=== PATIENT | male | born 1945 | race Caucasian/White ===

== ENCOUNTER 2016-03-06 03:07 | Emergency (ER) | payer OTHER ==
[~2016-03-06] VITALS: Ht 182.9 cm; Wt 114.0 kg
[~2016-03-06 03:07] MED LIST: ACET1TAB84 PO; ASCO500T16 PO; CHOL1TAB76 PO; DNSIS60 INJ; GLUC1TAB94 PO; GLUCTAB PO; MAGN250T22 PO; MULT-506 PO; NAPR1CAP12 PO
[2016-03-06 03:14] VITALS: TEMP 36.4; Ht 182.9 cm; Wt 114.0 kg
--- NOTE | 2016-03-06 03:29 | EMERGENCY ROOM VISIT NOTE ---
History Report prepared by Emerald: Mirta Tabor Under the Supervision of: Dr. Edd Hernandez M.D. First contact with patient: 03:21 Chief Complaint: ABDOMINAL PAIN Stated Complaint: HERNIA PAIN History of Present Illness The patient is a 70 year old male who presents to the Emergency Room with complaints of worsened right inguinal pain that began this morning. The patient states that he had some complications with a prostate surgery 3 years ago and has had a right inguinal hernia ever since. He had a consultation regarding surgery but ultimately surgery was decided against. Since then,the hernia has been giving him occasional soreness but he can typically reduce it without too much difficulty. This morning, the hernia is only slightly protruded, but has been giving him more pain than usual, especially since he had a bowel movement 3 hours [employer]MENT [employer]. His current discomfort is a 6/10 in severity. His pain has improved some since he arrived to the ED. Denies nausea, vomiting, or other complaints. He took a Tylenol several hours ago without relief. Source of History: patient Onset: this morning Position: other (right inguinal region) Symptom Intensity: 6/10 Timing: worsening Modifying Factors (Worsening): defecation Associated Symptoms: No nausea, No vomiting Review of Systems See HPI for pertinent positives & negatives. A total of 10 systems reviewed and were otherwise negative. Past Medical & Surgical Medical Problems: (1) Hernia repair (2) Hx of radiation therapy (3) Lumbosacral spondylolysis (4) Melanoma (5) Prostate cancer Family History Cancer Diabetes mellitus Social History Smoking Status: Never Smoker Alcohol Use: occasionally Drug Use: none Marital Status: Housing Status: lives with family Occupation Status: retired Current/Historical Medications Scheduled Ascorbic Acid (Ascorbic Acid), 500 MG PO DAILY Cholecalciferol (D 1999), 2,000 UNITS PO DAILY Denosumab (Prolia), 60 MG INJ Q 6 MONTHS Fish Oil ([place]-3), 1,200 MG PO DAILY Qoccvwfkzma-Twkpydaelce-Krjrla (Move Free Joint Health Ad), 1 TAB PO DAILY Magnesium Oxide (Magnesium), 250 MG PO DAILY Misc Natural Products (Osteo Bi-Flex Advanced Tr), 1 TAB PO TID Multivitamin (Multivitamin), 1 TAB PO DAILY Naproxen Sodium (Aleve), 1 CAP PO BID Turmeric (Curcuma Longa) (Turmeric), 750 MG PO BID Scheduled PRN Acetaminophen (Tylenol Arthritis Ext Rel), 650 MG PO UD PRN for Pain Allergies Coded Allergies: Oxycodone (Verified Allergy, Unknown, unknown, 03/06/16) pt and pt stated he had "disjointed syndrome" Physical Exam Vital Signs Date Time Temp Pulse Resp B/P Pulse Ox O2 Delivery O2 Flow Rate FiO2 03/06/16 05:44 78 18 122/73 98 03/06/16 05:04 74 18 143/89 94 Room Air 03/06/16 03:14 36.4 74 16 170/88 93 Room Air Physical Exam GENERAL: Patient is uncomfortable appearing and in mild distress. HEENT: No acute trauma, normocephalic atraumatic, mucous membranes moist, no nasal congestion, no scleral icterus. NECK: No stridor, no adenopathy, no meningismus, trachea is midline. LUNGS: No dyspnea. Clear to auscultation and equal bilaterally. No wheeze, no rhonchi. HEART: Regular rate and rhythm. No murmurs, rubs, gallops appreciated. ABDOMEN: Soft, nontender, bowel sounds positive, no masses appreciated, no peritonitis, large right inguinal hernia (reduced at bedside), BACK: No midline tenderness, no CVA tenderness EXTREMITIES: Normal motion all extremities, no cyanosis, no edema. NEUROLOGIC: Alert and oriented, no acute motor or sensory deficits, no focal weakness, cranial nerves grossly intact. SKIN: No rash, no jaundice, no diaphoresis. Medical Decision & Procedures ER Provider Diagnostic Interpretation: CT results as stated below per interpretation by me and the radiologist: CT ABDOMEN & PELVIS: A short segment of the terminal ileum herniates through the right inguinal canal. The herniated segment demonstrates wall thickening and mild surrounding edema. The approaching segment of small bowel is mildly dilated and demonstrates a fecalized appearance. The exiting short segment of terminal ileum is decompressed. The combination of findings are suspicious for incarceration complicated by possible strangulation and developing small bowel obstruction. Surgical consultation recommended. There is also apparent wall thickening of the sigmoid in the setting of diverticulosis. May represent reactive colitis. Primary diverticulitis considered less likely, but not ruled out. Remainder of the examination is not appreciably changed compared to 01/23/14. Radiologist: Kodak Aj MD Laboratory Results 03/06/16 03:40 Red Blood Count 5.10, Mean Corpuscular Volume 86.7, Mean Corpuscular Hemoglobin 30.2, Mean Corpuscular Hemoglobin Concent 34.8, Mean Platelet Volume 9.2, Neutrophils (%) (Auto) 85.9, Lymphocytes (%) (Auto) 9.8, Monocytes (%) (Auto) 3.2, Eosinophils (%) (Auto) 0.7, Basophils (%) (Auto) 0.1, Neutrophils # (Auto) 6.15, Lymphocytes # (Auto) 0.70, Monocytes # (Auto) 0.23, Eosinophils # (Auto) 0.05, Basophils # (Auto) 0.01 03/06/16 03:40 Test 03/06/16 03:40 03/06/16 03:43 White Blood Count 7.16 K/uL (4.8-10.8) Red Blood Count 5.10 M/uL (4.7-6.1) Hemoglobin 15.4 g/dL (14.0-18.0) Hematocrit 44.2 % (42-52) Mean Corpuscular Volume 86.7 fL (80-100) Mean Corpuscular Hemoglobin 30.2 pg (25-34) Mean Corpuscular Hemoglobin Concent 34.8 g/dl (32-36) Platelet Count 232 K/uL (130-400) Mean Platelet Volume 9.2 fL (7.4-10.4) Neutrophils (%) (Auto) 85.9 % Lymphocytes (%) (Auto) 9.8 % Monocytes (%) (Auto) 3.2 % Eosinophils (%) (Auto) 0.7 % Basophils (%) (Auto) 0.1 % Neutrophils # (Auto) 6.15 K/uL (1.4-6.5) Lymphocytes # (Auto) 0.70 K/uL (1.2-3.4) Monocytes # (Auto) 0.23 K/uL (0.11-0.59) Eosinophils # (Auto) 0.05 K/uL (0-0.5) Basophils # (Auto) 0.01 K/uL (0-0.2) RDW Standard Deviation 41.2 fL (36.4-46.3) RDW Coefficient of Variation 12.8 % (11.5-14.5) Immature Granulocyte % (Auto) 0.3 % Immature Granulocyte # (Auto) 0.02 K/uL (0.00-0.02) Est Creatinine Clear Calc Drug Dose 100.7 ml/min Estimated GFR () 100.4 Estimated GFR (Non- 86.6 BUN/Creatinine Ratio 23.3 (10-20) Calcium Level 9.6 mg/dl (8.5-10.1) Total Bilirubin 0.6 mg/dl (0.2-1) Direct Bilirubin 0.1 mg/dl (0-0.2) Aspartate Amino Transf (AST/SGOT) 17 U/L (15-37) Alanine Aminotransferase (ALT/SGPT) 27 U/L (12-78) Alkaline Phosphatase 55 U/L (45-117) Total Protein 7.2 gm/dl (6.4-8.2) Albumin 4.2 gm/dl (3.4-5.0) Lipase 133 U/L (73-393) Bedside Hemoglobin 15.3 g/dl (14.0-18.0) Bedside Hematocrit 45 % (42-52) Bedside Sodium 139 mEq/L (135-144) Bedside Potassium 4.0 mEq/L (3.3-5.0) Bedside Chloride 103 mEq/L (101-112) Bedside Total CO2 24 mEq/l (24-31) Anion Gap 17.0 mmol/L (16-25) Bedside Blood Urea Nitrogen 22 mg/dl (7-18) Bedside Creatinine 0.8 mg/dl (0.6-1.3) Bedside Glucose (other) 121 mg/dl (70-99) Bedside Ionized Calcium (Alona) 1.17 mmol/l (1.12-1.32) Laboratory results as reviewed by me. ED Course 0324: The patient was evaluated in room A11. A complete history and physical exam was performed. 0438: I reassessed the patient and updated him on results so far. 0440: I discussed the case with Dr. Hammond - General Surgery. He will evaluate the patient. 0529: I spoke with Dr. Hammond. He said that the patient can be discharged and feels that outpatient management is optimal. 0540: Reevaluated the patient. Discussed results and discharge instructions: He verbalized understanding and agreement. He is aware to return at any time if his symptoms worsen. The patient is ready for discharge. Medical Decision Differential: Incarcerated/strangulated hernia, ligamentous injury, abscess, appendicitis. 70 yr old male arrives for evaluation of right pelvic pain. On exam he has stuck right inguinal hernia. This was reduced in standard fashion by putting patient in Trendelenburg and gentle palpation. Feeling much improved. Hernia is easily sliding in and out now without further discomfort. I did opt for CT given amount of discomfort which reveals early obstruction/incarceration which likely was ongoing until reduced. Given findings however Gen Surg in to evaluate patient and I appreciate their input. WIll have outpatient follow up this week with planned OR in next few weeks as outpatient. Does have possible mild diverticulitis by CT but he exhibits no diverticulitis symptoms nor fever nor wbc elevation thus will hold on any abx. Stable and feeling well. Discussed hernia precautions and instructions regarding treatment and what requires immediate RTED. Patient and comfortable with this plan. Consults Time Called: [phone] Consulting Physician: Dr. Hammond - General Surgery Returned Call: [phone] I discussed the case with him. He will evaluate the patient. Additional Consults: Time Called: -- Consulted Physician: Dr. Hammond - General Surgery Returned Call: [phone] Additional Comments: I spoke with Dr. Hammond. He said that the patient can be discharged and feels that outpatient management is optimal. Impression Primary Impression: Incarcerated right inguinal hernia Scribe Attestation The scribe's documentation has been prepared under my direction and personally reviewed by me in its entirety. I confirm that the note above accurately reflects all work, treatment, procedures, and medical decision making performed by me. Departure Information Dispostion Home / Self-Care Referrals Wilner Hernandez M.D. (PCP) Ruddy Hammond M.D. Patient Instructions ED Hernia Inguinal, [facility]
[2016-03-06] MEDS ORDERED: OPTIRAY 320 IV PRN (03:45)
[2016-03-06 03:52] LABS: BASO % 0.1 %; BASO ABS # 0.01 K/uL (0-0.2); COMPLETE YES; EOS % 0.7 %; HEMATOCRIT 44.2 % (42-52); IG% 0.3 %; LYMPH % 9.8 %; MEAN CELL VOLUME 86.7 fL (80-100); MEAN CORPUSCULAR HEMOGLOBIN 30.2 pg (25-34); MEAN CORPUSCULAR HGB CONC 34.8 g/dl (32-36); MEAN PLATELET VOLUME 9.2 fL (7.4-10.4); MONO % 3.2 %; NEUT % 85.9 %; PLATELET COUNT 232 K/uL (130-400); WHITE BLOOD COUNT 7.16 K/uL (4.8-10.8)
[2016-03-06 04:01] LABS: ISTAT CREATININE 0.8 mg/dl (0.6-1.3); ISTAT HEMOGLOBIN 15.3 g/dl (14.0-18.0); ISTAT IONIZED CALCIUM 1.17 mmol/l (1.12-1.32)
[2016-03-06 04:16] LABS: BUN/CREATININE RATIO 23.3 (10-20); CALCIUM 9.6 mg/dl (8.5-10.1); CREATININE 0.89 mg/dl (0.60-1.40)
[2016-03-06] MEDS ORDERED: MISCTAB29 PO (04:54)
[2016-03-06] MEDS ORDERED: TURM500T PO (04:56)
[2016-03-06] MEDS ORDERED: OMEG10007 PO (04:56)
[2016-03-06 05:44] VITALS: BP 122/73; PULSE 78; O2SAT 98
--- NOTE | 2016-03-06 05:47 | Pre-Operative Consultation ---
History General Date of Service: Mar 06, 2016. HPI HPI: The patient is a 70 year old male being seen for a chronically incarcerated right inguinal hernia which became painful this evening. He has had a consultation regarding repair but did not have it repaired. Since then,the hernia has been giving him occasional soreness but he can typically reduce it without too much difficulty. This morning, the hernia is slightly protruded, but has been giving him more pain than usual. His pain is now gone. He denies nausea, vomiting, or other complaints. The patient notes that he had 3 normal bowel movements yesterday. A CT scan shows a chronically incarcerated segment of small bowel that I could reduce in the ED bay, nontender. Procedure Urgency: Acute Risk Assessment Daily beta erin use?: No Problem List Medical Problems: (1) Encounter for removal of sutures Status: Acute (2) Finger laceration Status: Acute (3) Incarcerated right inguinal hernia Status: Acute Medical & Surgical History Past Medical History: cancer (melanoma), cancer - prostate, other Past Surgical History: hernia repair (UHR w/mesh), other (prostatectomy) Family History Family History: cancer, diabetes Social History Hx Tobacco Use In Past Year?: No Smoking Status: Never Smoker Alcohol: occasionally Drug Use: none Marital status: Occupation status: retired Immunizations Have You Had Influenza Vaccine: No Have You Had Tetanus Vaccine: Yes History of Pneumococcal: No History Hepatitis B Vaccine: No Allergies Allergies: Coded Allergies: Oxycodone (Verified Allergy, Unknown, unknown, 03/06/16) pt and pt stated he had "disjointed syndrome" Medications Current Inpatient Medications Current Inpatient Medications Medications (Trade) Dose Ordered Sig/Nigel Route Start Time Stop Time Status Last Admin Dose Admin Ioversol (Optiray 320) 100 ml UD PRN IV 03/06/16 03:45 03/10/16 03:44 Review of Systems Review of Systems Constitutional: denies chills, denies diaphoresis, denies fever Eyes: reports: no symptoms ENT: reports: no symptoms reported Cardiovascular: denies: chest pain, chest pressure, chest tightness, palpitations Respiratory: denies: cough, orthopnea, short of breath, stridor Gastrointestinal: denies abdominal pain, denies constipation, denies diarrhea, denies nausea, denies vomiting Genitourinary - Male: reports: no symptoms Musculoskeletal: back pain, denies joint pain, denies joint swelling, muscle stiffness Integumentary: change in color (bilateral venous disease), denies change in hair/nails, denies lumps, denies rash Neurologic: reports: no symptoms Psychiatric: reports: no symptoms Endocrine: no symptoms Hematologic / Lymphatic: denies: anemia, easy bleeding, easy bruising Allergic / Immunologic: no symptoms Physical Exam Physical Exam General Appearance: + WD/WN, No distress Ears, Nose, Throat: + normal ENT inspection Neck: No abnormal inspection, No lymphadenophy, No stiffness, No tenderness, No tracheal deviation Respiratory: No decreased breath sounds, No rhonchi, No stridor, No wheezing Cardiovascular: No bradycardia, No diastolic murmur, No gallop/S3, No gallop/S4 , No systolic murmur, No tachycardia Abdomen: + hernia (reducible right inguinal hernia), No abnormal bowel sounds, No distension, No guarding, No rebound, No tenderness Extremities: No calf tenderness, No deformity, No inflammation, No swelling Neurologic/Psychiatric: No disorientation, No motor deficit/weakness, No sensory deficit Skin Characteristics: No abnormal color, No diaphoresis, No jaundice, No rash Lymphatic: No abnormal adenopathy Diagnostics Labs Labs Results Past 24 Hours Test 03/06/16 03:40 03/06/16 03:43 Range/Units White Blood Count 7.16 4.8-10.8 K/uL Red Blood Count 5.10 4.7-6.1 M/uL Hemoglobin 15.4 14.0-18.0 g/dL Hematocrit 44.2 42-52 % Mean Corpuscular Volume 86.7 80-100 fL Mean Corpuscular Hemoglobin 30.2 25-34 pg Mean Corpuscular Hemoglobin Concent 34.8 32-36 g/dl Platelet Count 232 130-400 K/uL Mean Platelet Volume 9.2 7.4-10.4 fL Neutrophils (%) (Auto) 85.9 % Lymphocytes (%) (Auto) 9.8 % Monocytes (%) (Auto) 3.2 % Eosinophils (%) (Auto) 0.7 % Basophils (%) (Auto) 0.1 % Neutrophils # (Auto) 6.15 1.4-6.5 K/uL Lymphocytes # (Auto) 0.70 1.2-3.4 K/uL Monocytes # (Auto) 0.23 0.11-0.59 K/uL Eosinophils # (Auto) 0.05 0-0.5 K/uL Basophils # (Auto) 0.01 0-0.2 K/uL RDW Standard Deviation 41.2 36.4-46.3 fL RDW Coefficient of Variation 12.8 11.5-14.5 % Immature Granulocyte % (Auto) 0.3 % Immature Granulocyte # (Auto) 0.02 0.00-0.02 K/uL Sodium Level 140 136-145 mmol/L Potassium Level 4.0 3.5-5.1 mmol/L Chloride Level 105 98-107 mmol/L Carbon Dioxide Level 24 21-32 mmol/L Anion Gap 11.0 17.0 16-25 mmol/L Blood Urea Nitrogen 21 7-18 mg/dl Creatinine 0.89 0.60-1.40 mg/dl Est Creatinine Clear Calc Drug Dose 100.7 ml/min Estimated GFR () 100.4 Estimated GFR (Non- 86.6 BUN/Creatinine Ratio 23.3 10-20 Random Glucose 115 70-99 mg/dl Calcium Level 9.6 8.5-10.1 mg/dl Total Bilirubin 0.6 0.2-1 mg/dl Direct Bilirubin 0.1 0-0.2 mg/dl Aspartate Amino Transf (AST/SGOT) 17 15-37 U/L Alanine Aminotransferase (ALT/SGPT) 27 12-78 U/L Alkaline Phosphatase 55 45-117 U/L Total Protein 7.2 6.4-8.2 gm/dl Albumin 4.2 3.4-5.0 gm/dl Lipase 133 73-393 U/L Bedside Hemoglobin 15.3 14.0-18.0 g/dl Bedside Hematocrit 45 42-52 % Bedside Sodium 139 135-144 mEq/L Bedside Potassium 4.0 3.3-5.0 mEq/L Bedside Chloride 103 101-112 mEq/L Bedside Total CO2 24 24-31 mEq/l Bedside Blood Urea Nitrogen 22 7-18 mg/dl Bedside Creatinine 0.8 0.6-1.3 mg/dl Bedside Glucose (other) 121 70-99 mg/dl Bedside Ionized Calcium (Alona) 1.17 1.12-1.32 mmol/l Impression Assessment and Plan Assessment and Plan Chronically incarcerated R IH that can be manually reduced -pain resolved -no obstructive symptoms -no signs of ischemia -discharge from ED and will see in clinic this week to plan repair
--- NOTE | 2016-03-06 08:21 | DIAGNOSTIC IMAGING REPORT ---
CT ABD/PELVIS IV CONTRAST ONLY CLINICAL HISTORY: Right-sided abdominal and pelvic pain. COMPARISON STUDY: 01/23/2014 TECHNIQUE: Following the IV administration of 92 mL of Optiray-320, CT scan of the abdomen and pelvis was performed from the lung bases to the proximal femurs. Images are reviewed in the axial, sagittal, and coronal planes. IV contrast was administered without complication. CT DOSE: 1296.18 mGy.cm FINDINGS: Lower chest: There are minor basilar atelectatic changes. The heart is mildly enlarged. Liver: There is mild hepatic steatosis. There is presumed focal fat adjacent to the gallbladder fossa. The portal veins appear patent. Gallbladder: Unremarkable. Spleen: Normal in size and attenuation. Pancreas: Unremarkable. Adrenal glands: Unremarkable. Kidneys: There is a nonobstructing 1 cm left renal calculus. There is no hydronephrosis. Bowel: There is a right inguinal hernia containing a loop of small bowel. There is fluid within the hernia sac. There is a small bowel feces sign. There are mildly dilated small bowel loops proximal to the hernia. The hernia is felt to be resulting in a partial small bowel obstruction. The appendix appears normal. There is scattered colonic diverticula present. There is no acute diverticulitis. Peritoneum: There is a small amount of free fluid within the hernia sac. There is no free air. There is a 6 cm cystic structure with peripheral calcification at the anterior obturator level. This appears smaller than the prior study. This likely represents a lymphocele. Vasculature: The abdominal aorta is normal in course and caliber. Adenopathy: None. Pelvic viscera: There is mild bladder wall thickening which may be secondary to a nondistended bladder. Skeletal structures: There are advanced arthritic changes involving the hips IMPRESSION: 1. Right inguinal hernia, containing a small segment of terminal ileum. There is upstream small bowel dilatation with a small bowel feces sign. There is fluid present within the hernia sac. The findings are indicative of a small bowel obstruction secondary to the inguinal hernia. Surgical consultation is recommended. 2. Colonic diverticulosis with wall thickening likely secondary to peridiverticular muscular hypertrophy 3. Normal appendix 4. Stable fluid collection within the right obturator region, likely representing a lymphocele 5. Postsurgical changes are prior ventral hernia repair 6. Advanced arthritic changes within the hips 7. Nonobstructing 1 cm left renal calculus Electronically signed by: Shyam Joseph M.D. 03/06/2016 8:19 AM Dictated Date/Time: 03/06/2016 8:09 AM
[2016-03-09] MEDS ORDERED: CALC600T PO (13:15)
[2016-11-05] MEDS ORDERED: ACET-749 PO (11:31)
== END 2016-03-06 05:42 | disposition home or self-care (01) ==
LOC: C.EDB 03:09 → C.EDA 05:42
DX: K40.90 Unilateral inguinal hernia, without obstruction or gangrene, not specified as recurrent (principal); Z92.3 Personal history of irradiation; Z85.46 Personal history of malignant neoplasm of prostate

== ENCOUNTER → 2016-03-09 | Outpatient (CLI) | payer OTHER ==
[2015-03-04 13:23] VITALS: BP 131/78; PULSE 73
[~2016-03-09] MED LIST changes: +ACET-749 PO; +CALC600T PO; -GLUCTAB PO; +MISCTAB29 PO; +OMEG10007 PO; +TURM500T PO
[2016-03-09 12:39] VITALS: BP 127/79; PULSE 88; TEMP 36.8; O2SAT 94
--- NOTE | 2016-03-09 14:05 | Radiation Oncology Follow-Up ---
Radiation Oncology Follow-Up Date of Visit Mar 09, 2016. Reason For Visit Annual follow-up Radiation Completion Date Hormonal suppression;IMRT 08/02/13 Diagnosis (1) Prostate ca Status: Resolved Onset Date: 01/16/2013 Location: both lobes of the prostate Histology Subtype: adenocarcinoma Stage: IV Permanent Comment: Rising PSA to 60.09 Status post ultrasound-guided biopsies. Biopsy stage T2c [place] 3+3, 3+4, 4+3, and 3+5 Status post laparoscopic robotic-assisted retropubic prostatectomy and bilateral lymph node dissection Stage pT3 pN1 M0 Status post completion of radiation therapy with IMRT/IGRT completed 08/02/2013 received 7040 cGy Hormonal suppression completed 11/11/2014 Last Edited By: Funmilayo Hamm on Mar 09, 2016 13:43 History of Present Illness Mr. Sanz is a 67-year-old male who had a past history going back approximately 11 years when there was a slight rise in PSA to the range of 4 to 5. At that time he was told he had a very small gland and ultrasound and biopsies were suggested. The patient chose to proceed with observation at that time and unfortunately, since that time no further PSAs were drawn. Recent comprehensive blood work performed on September 29, 2012 showed a marked elevation of PSA to 63.6. This was repeated on October 30, 2012 and remained high at 69.09. The patient had been seen by Dr. Sherwood as earlier he presented with abdominal pain which was thought to be related to a bleed associated with the left adrenal gland. The patient was being followed by Dr. Sherwood for this but no specific treatments were required. His digital rectal exam at that time showed no palpable nodules and a nontender prostate. The prostate was felt to be enlarged at greater than 70 grams. He felt the prostate was firm but without nodules. As noted above, he repeated the PSA and it returned at 69.09. Because of the persistent elevated PSA, he recommended a prostate biopsy. He ordered an MRI of the abdomen to evaluate the abdominal bleed. This showed retroperitoneal hemorrhage of uncertain etiology. No other abdominal abnormalities were appreciated. He ordered a CT scan of the abdomen utilizing the adrenal mass protocol on November 21. This showed a 1.5 cm left adrenal nodule that does not meet the criteria for an adenoma. This was seen previously and is stable compared to a previous study in 2007. No evidence of acute hemorrhaging was noted. He therefore proceeded with an ultrasound-guided prostate biopsy on November 24, 2012. Total of 14 biopsies were taken. Of the 14 biopsies, 2 of 2 biopsies from the left base were positive for an adenocarcinoma, [place] grade of 3 + 5 involving 75% of the tissue submitted with perineural invasion identified. Two of two biopsies from the right base revealed an adenocarcinoma, [place] grade of 3 + 4 involving 95% of the core tissue sample. Two of two biopsies from the left mid gland revealed an adenocarcinoma, [place]rum grade of 3 + 4 involving 80% of the core tissue sample. Two of two biopsies from the right mid gland revealed an adenocarcinoma, [place]rum grade of 4 + 3, involving essentially 100% of the core tissue sample. Two of two biopsies from the left apex revealed an adenocarcinoma, [place]rum grade of 3 + 4 involving 40% of the core tissue sample. One of two biopsies from the right apex revealed an adenocarcinoma, Erum grade of 3 + 4 involving 20% of the core tissue sample. One of one biopsy from the left anterior revealed an adenocarcinoma, [place] grade of 3 + 3, involving 10% of the core tissue sample. The right anterior biopsy revealed benign prostatic tissue. Therefore a total of 12 of 14 biopsies were positive. Case [id number]. His estimated gland volume was 78.5 ccs. The patient returned to discuss these biopsy findings with Dr. Sherwood. The role of radical robotic prostatectomy was discussed and patient was tentatively scheduled for December 28. Dr. Sherwood obtained additional staging procedures. The patient had previously had a CT scan of the abdomen and pelvis showing no evidence of enlarged pelvic nodes. He had a bone scan December 05 which showed a questionable area at T11. MRI of the thoracic spine was therefore performed on December 07. This showed moderate degenerative changes throughout the entire thoracic region with the activity at T11 as seen on the patient's bone scan felt to be degenerative in nature. Thus there was no evidence of metastatic bony disease. All options had been reviewed with the patient he underwent a radical robotic prostatectomy. This was performed on 01/16/2013. This revealed adenocarcinoma, recent 3+5, extraprostatic extension, seminal vesicles involved. Perineural invasion. Stage was pT2 pN1. One of 4 nodes were positive. He steadily recovered from his surgery. He received physical therapy for incontinence through [facility]. He was then able to return back to our office and undergo salvage radiation therapy. This was given from 06/11/2013 to 08/02/2013. He received 7040 cGy. Interim History His urinary status has been similar over the past few months. He does have an increase in nocturia. He did try mybetric. He stated that this did not help with the nocturia. His AUA score was 4.5. He completed and expanded prostate cancer index composite for clinical practice and gave a score of 3 of 12 and urinary incontinence symptoms. He gave a score of 0 of 12 and urinary irritation symptoms. He gave a score of one of 12 in bowel symptoms. He gave a score of 9 of 12 and sexual symptoms. He gave a score of 2 of 12 in hormonal vitality symptoms. His total was 15 of 60. He has been followed closely by Dr. Sherwood and has had recheck PSAs. He had a PSA 06/09/2015 that was less than 0.010. He had a PSA 09/26/2015 that was 0.035. His last PSA was 2015 and this was 0.147. He is scheduled to have this rechecked in May. He' ll be seeing Dr. Sherwood prior to this visit because of a known renal calculus. There is discussion about possible lithotripsy. He also has a right inguinal hernia which has recently caused him discomfort. He was in the emergency room and then referred to surgery. He is going to be undergoing a right inguinal hernia repair by Dr. Hammond. He also has osteoporosis and is getting probably a every 6 months. Allergies Coded Allergies: Oxycodone (Verified Allergy, Unknown, unknown, 03/06/16) pt and pt stated he had "disjointed syndrome" Home Medications Scheduled Ascorbic Acid (Ascorbic Acid), 500 MG PO DAILY Calcium Carbonate (Calcium 600), 1 TAB PO DAILY Cholecalciferol (D 1999), 1,000 UNITS PO DAILY Denosumab (Prolia), 60 MG INJ Q 6 MONTHS Fish Oil ([place]-3), 1,200 MG PO DAILY Cumvxipjegq-Qmxukhzxddl-Xoyfvz (Move Free Joint Health Ad), 1 TAB PO BID Magnesium Oxide (Magnesium), 250 MG PO DAILY Misc Natural Products (Osteo Bi-Flex Advanced Tr), 1 TAB PO TID Multivitamin (Multivitamin), 1 TAB PO DAILY Naproxen Sodium (Aleve), 1 CAP PO BID Turmeric (Curcuma Longa) (Turmeric), 750 MG PO BID Scheduled PRN Acetaminophen (Tylenol Arthritis Ext Rel), 650 MG PO UD PRN for Pain Review of Systems Gastrointestinal: Symptoms: WNL GI Comments: Taking benefiber daily; Oral: Symptoms: No Problems Respiratory: Symptoms: WNL, Dry Cough Sputum Character: clear Other Respiratory: Chronic dry cough on occassion ever since prostatectomy; Urinary: Symptoms: Nocturia Comments: See below notations; Skin: Symptoms: No Problems Physical Exam Vital Signs Date Time Temp Pulse Resp B/P Pulse Ox O2 Delivery O2 Flow Rate FiO2 03/09/16 12:39 36.8 88 12 127/79 94 Pain: Pain Onset: few years Pain Duration: intermet Side: Bilateral Pain Location: Hip Patient Pain Scale: 0 - 10 Initial Pain Intensity: 7.0 Pain Description: Aching General Appearance: no apparent distress Eyes: normal inspection, EOMI ENT: normal ENT inspection, hearing grossly normal Respiratory/Chest: lungs clear, no respiratory distress, no accessory muscle use Cardiovascular: regular rate, rhythm, no gallop, no murmur Abdomen: normal bowel sounds, non tender, soft Genitourinary - Male: Right inguinal hernia. Nonreproducible. Anal / Rectum: Normal sphincter tone. Prostate bed is flat. No rectal masses and no rectal bleeding. Extremities: no pedal edema Neurologic/Psychiatric: no motor/sensory deficits, alert, normal mood/affect Skin: warm/dry Lymphatic: no adenopathy Laboratory Studies Test 02/04/16 09:50 03/06/16 03:40 03/06/16 03:43 Blood Urea Nitrogen 24 mg/dl (7-18) 21 mg/dl (7-18) Creatinine 0.98 mg/dl (0.60-1.40) 0.89 mg/dl (0.60-1.40) Estimated GFR () 90.2 100.4 Estimated GFR (Non- 77.8 86.6 BUN/Creatinine Ratio 24.9 (10-20) 23.3 (10-20) Prostate Specific Antigen 0.147 ng/ml (0.000-4.000) Total Testosterone 380 ng/dL (250-1100) Free Testosterone 41.8 pg/mL (30.0-135.0) White Blood Count 7.16 K/uL (4.8-10.8) Red Blood Count 5.10 M/uL (4.7-6.1) Hemoglobin 15.4 g/dL (14.0-18.0) Hematocrit 44.2 % (42-52) Mean Corpuscular Volume 86.7 fL (80-100) Mean Corpuscular Hemoglobin 30.2 pg (25-34) Mean Corpuscular Hemoglobin Concent 34.8 g/dl (32-36) Platelet Count 232 K/uL (130-400) Mean Platelet Volume 9.2 fL (7.4-10.4) Neutrophils (%) (Auto) 85.9 % Lymphocytes (%) (Auto) 9.8 % Monocytes (%) (Auto) 3.2 % Eosinophils (%) (Auto) 0.7 % Basophils (%) (Auto) 0.1 % Neutrophils # (Auto) 6.15 K/uL (1.4-6.5) Lymphocytes # (Auto) 0.70 K/uL (1.2-3.4) Monocytes # (Auto) 0.23 K/uL (0.11-0.59) Eosinophils # (Auto) 0.05 K/uL (0-0.5) Basophils # (Auto) 0.01 K/uL (0-0.2) RDW Standard Deviation 41.2 fL (36.4-46.3) RDW Coefficient of Variation 12.8 % (11.5-14.5) Immature Granulocyte % (Auto) 0.3 % Immature Granulocyte # (Auto) 0.02 K/uL (0.00-0.02) Sodium Level 140 mmol/L (136-145) Potassium Level 4.0 mmol/L (3.5-5.1) Chloride Level 105 mmol/L (98-107) Carbon Dioxide Level 24 mmol/L (21-32) Anion Gap 11.0 mmol/L (3-11) 17.0 mmol/L (16-25) Est Creatinine Clear Calc Drug Dose 100.7 ml/min Random Glucose 115 mg/dl (70-99) Calcium Level 9.6 mg/dl (8.5-10.1) Total Bilirubin 0.6 mg/dl (0.2-1) Direct Bilirubin 0.1 mg/dl (0-0.2) Aspartate Amino Transferase (AST) 17 U/L (15-37) Alanine Aminotransferase (ALT) 27 U/L (12-78) Alkaline Phosphatase 55 U/L (45-117) Total Protein 7.2 gm/dl (6.4-8.2) Albumin 4.2 gm/dl (3.4-5.0) Lipase 133 U/L (73-393) POC Hemoglobin 15.3 g/dl (14.0-18.0) POC Hematocrit 45 % (42-52) POC Sodium 139 mEq/L (135-144) POC Potassium 4.0 mEq/L (3.3-5.0) POC Chloride 103 mEq/L (101-112) POC Total CO2 24 mEq/l (24-31) POC Blood Urea Nitrogen 22 mg/dl (7-18) POC Creatinine 0.8 mg/dl (0.6-1.3) POC Glucose 121 mg/dl (70-99) POC Ionized Calcium ([place]) 1.17 mmol/l (1.12-1.32) Assessment & Plan Plan: Continue regular follow-up with Dr. Sherwood. He is going to be seeing him about his kidney stone. He has a scheduled appointment for May for a PSA and recheck visit. They have discussed the rising PSA. There is concern. They have discussed possible pulse dose of hormone suppression. He also may qualify for a clinical trial. Continue follow-up with his PCP and he receives probably every 6 months for his osteoporosis. We asked her to return to our office in 1 year. He may call if he has any questions or concerns in the interim. Total Time In Follow-Up I spent 20 minutes speaking to the patient performing examination. I spent 15 minutes reviewing information and completing this note. Copy To Wilner Hernandez M.D.; Robin Sherwood MD, Urology
== END | disposition home or self-care (01) ==
LOC: C.ONC 12:21
PROVIDERS: ATTEND Radiology Radiation Oncology
DX: Z08 Encounter for follow-up examination after completed treatment for malignant neoplasm (principal); Z92.3 Personal history of irradiation; Z85.46 Personal history of malignant neoplasm of prostate

== ENCOUNTER → 2016-06-21 | Outpatient (CLI) | payer OTHER ==
[2016-06-21 10:41] LABS: BLOOD UREA NITROGEN 16 mg/dl (7-18); BUN/CREATININE RATIO 17.6 (10-20); CREATININE 0.92 mg/dl (0.60-1.40)
[2016-06-21 10:45] LABS: PROSTATE SPECIFIC ANTIGEN 0.334 ng/ml (0.000-4.000)
--- NOTE | 2016-06-25 12:04 | CODING QUERY MEDICAL NECESSITY ---
CQSUPPORTING DIAGNOSIS NEEDED A supporting diagnosis is required for the test/procedure performed on this patient in order for us to be reimbursed by the patient's insurance. Please provide a supporting diagnosis for the following test/procedure listed below next to the test name along with your signature. *If there is no additional diagnosis for this patient that would support the following test/procedure please document that below next to the test/procedure. Test(s)/Procedure(s) that require a supporting diagnosis: DOS 06/21/16 PROSTATE SPECIFIC Provider Signature: Date: Thank you Melyssa Shook [facility] Information Management Once completed, please kindly fax back to [phone] For questions please call [phone]
== END | disposition home or self-care (01) ==
LOC: C.LAB 09:26
PROVIDERS: ATTEND Urology
DX: N39.3 Stress incontinence (female) (male) (principal); R97.20 Elevated prostate specific antigen [PSA]; N40.1 Benign prostatic hyperplasia with lower urinary tract symptoms

== ENCOUNTER → 2016-10-12 | Outpatient (CLI) | payer OTHER ==
--- NOTE | 2016-10-12 09:29 | DIAGNOSTIC IMAGING REPORT ---
KUB CLINICAL HISTORY: Nephrolithiasis. COMPARISON STUDY: CT of the abdomen and pelvis March 06, 2016. FINDINGS: An 8 mm left renal calculus is noted. No right renal calculi are identified although the renal shadow is partially obscured by stool. Pelvic calcifications likely reflect phleboliths and vascular calcifications although make evaluation for ureteral calculi difficult. End-stage osteoarthritis of both hips with complete loss of hip joint space with osteophytosis and flattening of the femoral heads is again noted. There are post surgical findings consistent with a previous ventral hernia repair. IMPRESSION: 1. 8 mm left renal calculus. 2. No ureteral calculi identified although evaluation difficult given numerous phleboliths. Electronically signed by: Jalil Moreno M.D. 10/12/2016 9:28 AM Dictated Date/Time: 10/12/2016 9:25 AM
[2016-10-12 09:37] LABS: BASO % 0.4 %; BASO ABS # 0.02 K/uL (0-0.2); COMPLETE YES; EOS % 3.1 %; HEMATOCRIT 46.5 % (42-52); IG% 0.2 %; LYMPH % 17.7 %; LYMPH ABS # 0.79 K/uL (1.2-3.4); MEAN CELL VOLUME 90.3 fL (80-100); MEAN CORPUSCULAR HEMOGLOBIN 30.9 pg (25-34); MEAN CORPUSCULAR HGB CONC 34.2 g/dl (32-36); MEAN PLATELET VOLUME 9.4 fL (7.4-10.4); MONO % 9.4 %; NEUT % 69.2 %; PLATELET COUNT 243 K/uL (130-400); RED BLOOD COUNT 5.15 M/uL (4.7-6.1); WHITE BLOOD COUNT 4.47 K/uL (4.8-10.8)
[2016-10-12 09:56] LABS: ALT/SGPT 27 U/L (12-78); BLOOD UREA NITROGEN 17 mg/dl (7-18); BUN/CREATININE RATIO 20.4 (10-20); CARBON DIOXIDE 28 mmol/L (21-32); CHLORIDE 105 mmol/L (98-107); CREATININE 0.83 mg/dl (0.60-1.40); GLUCOSE 89 mg/dl (70-99); POTASSIUM 4.3 mmol/L (3.5-5.1); SODIUM 138 mmol/L (136-145)
[2016-10-12 09:59] LABS: ALB/GLOB RATIO 1.3 (0.9-2); ALKALINE PHOSPHATASE 70 U/L (45-117); AST/SGOT 18 U/L (15-37)
[2016-10-12 10:02] LABS: BLOOD UREA NITROGEN 17 mg/dl (7-18); BUN/CREATININE RATIO 22.6 (10-20); CREATININE 0.76 mg/dl (0.60-1.40)
[2016-10-12 10:08] LABS: PROSTATE SPECIFIC ANTIGEN 0.487 ng/ml (0.000-4.000)
== END | disposition home or self-care (01) ==
LOC: C.LAB 08:40
PROVIDERS: ATTEND Urology
DX: E55.9 Vitamin D deficiency, unspecified (principal); C61 Malignant neoplasm of prostate; N20.0 Calculus of kidney

== ENCOUNTER → 2016-10-26 | Outpatient (CLI) | payer OTHER ==
--- NOTE | 2016-10-26 13:31 | DIAGNOSTIC IMAGING REPORT ---
TWO VIEW CHEST CLINICAL HISTORY: Nephrolithiasis. Preoperative examination.. FINDINGS: PA and lateral chest radiographs are compared to study dated 10/29/2014 and correlated with chest CT dated 01/23/2014. The heart is enlarged and there is mild atherosclerotic calcification of the thoracic aorta. The pulmonary vasculature is noncongested. Emphysema and chronic interstitial thickening are similar to previous. No airspace consolidation or pleural effusion is identified. There is no pneumothorax. The skeletal structures are osteopenic. Degenerative changes noted throughout the thoracic spine. Surgical clips are seen in the right axilla. IMPRESSION: Cardiomegaly and emphysematous change. There is no active disease in the chest. Electronically signed by: Franky Birmingham M.D. 10/26/2016 1:29 PM Dictated Date/Time: 10/26/2016 1:28 PM
== END | disposition home or self-care (01) ==
LOC: C.RAD 11:39
PROVIDERS: ATTEND Urology
DX: N20.0 Calculus of kidney (principal); I51.7 Cardiomegaly

== ENCOUNTER → 2016-11-04 | Outpatient (CLI) | payer OTHER ==
[~2016-11-04] MED LIST changes: -DNSIS60 INJ
--- NOTE | 2016-11-04 14:41 | DIAGNOSTIC IMAGING REPORT ---
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 Right kidney is obscured by overlying bowel content. Severe degenerative change of the hips. Mild degenerative change lumbar spine. Multiple coils consistent with a ventral hernia repair. IMPRESSION: Unchanged 7 mm left renal calcification. The above report was generated using voice recognition software. It may contain grammatical, syntax or spelling errors. Electronically signed by: Ward Kellogg M.D. 11/04/2016 2:39 PM Dictated Date/Time: 11/04/2016 2:38 PM
== END | disposition home or self-care (01) ==
LOC: C.RAD 14:17
PROVIDERS: ATTEND Urology
DX: N20.0 Calculus of kidney (principal)

== ENCOUNTER → 2016-11-05 | Day surgery (SDC) | payer OTHER ==
[2016-10-28 14:13] VITALS: Ht 182.9 cm; Wt 109.1 kg
[~2016-11-05] VITALS: Ht 182.9 cm; Wt 109.1 kg
[~2016-11-05] MED LIST changes: +ACETAMINOPHEN 325 MG TAB PO PRN; +ATROPINE SULFATE 0.1 MG/ML 5ML SYR IV PRN; +CIPROFLOXACIN 400MG / D5W IV SCH; +EpHEDrine SULFATE INJ 50 MG/ML AMP IV PRN; +EpHEDrine SULFATE INJ 50 MG/ML AMP ONE; +FENTANYL CITRATE INJ 50 MCG/1 ML 2 ML VIAL IV PRN; +FENTANYL CITRATE INJ 50 MCG/1 ML 2 ML VIAL ONE; +LACTATED RINGER'S 1000ML 1,000 ML IV SCH; +LIDOCAINE HCL 2% 2 ML VIAL (20MG/ML) ONE; +ONDANSETRON INJ 2 MG/ML 2 ML VIAL ONE; +PROPOFOL IV EMULSION 10 MG/ML 20 ML VIAL IV ONE; +SODIUM CHLORIDE 0.9% 1000ML 1,000 ML IV SCH
--- NOTE | 2016-11-05 11:14 | History & Physical Bridge Note ---
H&P Re-Evaluation Bridge Note: I have examined the patient, reviewed the History & Physical and in the interval since the performance of the History & Physical I have noted the following changes of clinical significance: No changes noted
--- NOTE | 2016-11-05 11:35 | Discharge Instructions-SurgCtr ---
Discharge Instructions Date of Service Nov 05, 2016. Visit Reason for Visit: Left Stones Discharge Discharge Diagnosis / Problem: left stones Discharge Goals Goal(s): Decrease discomfort, Improve function, Increase independence, Improve disease control, Prevent Disease Progression Medications Stopped Medications Name(s): FISH OIL/ALEVE STOPPED ON Oct Activity Recommendations Activity Limitations: resume your previous activity Lifting Limitations: none Exercise/Sports Limitations: none May Resume Sexual Activity: when tolerated Shower/Bathe: no limitations Driving or Machine Use: resume 1 day after discharge Anesthesia . Post Anesthesia Instructions: If you have had General Anesthesia or IV Sedation: * Do not drive today. * Resume driving when surgeon permits. * Do not make important decisions or sign legal documents today. * Call surgeon for: 1. Temperature elevations greater than 101 degrees F. 2. Uncontrollable pain. 3. Excessive bleeding. 4. Persistent nausea and vomiting. 5. Medication intolerance (nausea, vomiting or rash). * For nausea and vomiting use only clear liquids such as: tea, soda, bouillon until nausea subsides, then gradually increase diet as tolerated. * If you have any concerns or questions, call your surgeon's office. If physician is unavailable and it is an emergency, call 911 or go to the nearest emergency room. . Instructions / Follow-Up Instructions / Follow-Up Please keep your previously scheduled follow up appointment. Diet Recommendations Home Diet: no limitations Pending Studies Studies pending at discharge: no Medical Emergencies . Who to Call and When: Medical Emergencies: If at any time you feel your situation is an emergency, please call 911 immediately. . Non-Emergent Contact Non-Emergency issues call your: Urologist Call Non-Emergent contact if: you have a fever, temperature is above 101.5, your pain is not controlled, your pain is worsening . . "Provider Documentation" section prepared by Jonn Sandoval. . [place] Drug Monitoring Program Search Results: patient reviewed within database, no issues identified
--- NOTE | 2016-11-05 12:03 | [facility] Operative Report ---
Operative Report Operative Date Nov 05, 2016. Pre-Operative Diagnosis left renal stone Post-Operative Diagnosis left renal stone Procedure(s) Performed left ESWL Surgeon Lokesh Singleton Staff Development Educator Surgeon(s) none Estimated Blood Loss 0cc Findings left renal stone Specimens none Drains none Anesthesia gen Complication(s) None Disposition Recovery Room / PACU (stable) Indications left renal stone Description of Procedure Laz Sanz was identified in the preoperative holding area, appropriate informed consent was reviewed and completed and the patient was transported to the operating suite. Upon arrival appropriate preoperative antibiotics were administered and general anesthesia induced. The patient was placed in supine position and the stone was localized under fluoroscopy. A total of 2500 shocks were delivered to the stone. There appeared to be good fragmentation of the stone. Details of this procedure can be found on the [facility] information sheet. At the conclusion of the case the patient was extubated and taken to the PACU in stable condition. There were no complications. I attest to the content of the Intraoperative Record and any orders documented therein. Any exceptions are noted below.
[2016-11-05 12:54] VITALS: TEMP 36.5
--- NOTE | 2016-11-05 13:02 | Anesthesia Progress Nt - [facility] ---
Anesthesia Post Op Note Date & Time Nov 05, 2016 at 13:02 Vital Signs Pain Intensity: 0 Vital Signs Past 12 Hours Date Time Temp Pulse Resp B/P (MAP) Pulse Ox O2 Delivery O2 Flow Rate FiO2 11/05/16 12:54 36.5 62 16 148/82 (104) 96 Room Air 11/05/16 12:42 71 16 97 11/05/16 12:42 71 16 11/05/16 12:41 124/71 11/05/16 12:37 68 18 92 11/05/16 12:37 57 18 11/05/16 12:36 135/78 11/05/16 12:33 36.8 95 20 132/79 95 Room Air 11/05/16 12:32 70 17 94 11/05/16 12:32 69 17 11/05/16 12:31 132/79 11/05/16 12:27 78 20 11/05/16 12:27 77 20 93 11/05/16 12:26 152/82 11/05/16 12:22 76 27 94 11/05/16 12:22 75 27 11/05/16 12:21 136/81 11/05/16 12:17 80 17 11/05/16 12:17 81 17 97 11/05/16 12:16 144/80 11/05/16 12:13 85 22 97 11/05/16 12:13 85 22 11/05/16 12:11 140/78 11/05/16 12:09 139/81 11/05/16 12:08 82 95 11/05/16 12:08 36.4 82 12 139/61 95 Diffusion Mask 6 11/05/16 12:08 83 11/05/16 09:43 36.9 72 22 131/74 (93) 97 Room Air Notes Mental Status: alert / awake / arousable, participated in evaluation Pt Amnestic to Procedure: Yes Nausea / Vomiting: adequately controlled Pain: adequately controlled Airway Patency, RR, SpO2: stable & adequate BP & HR: stable & adequate Hydration State: stable & adequate Anesthetic Complications: no major complications apparent
[2016-11-05 13:11] VITALS: BP 126/78; PULSE 66; O2SAT 96
== END | disposition home or self-care (01) ==
LOC: X.SURG 08:08
PROVIDERS: ATTEND Urology
DX: N20.0 Calculus of kidney (principal); Z98.890 Other specified postprocedural states; Z80.42 Family history of malignant neoplasm of prostate; Z83.3 Family history of diabetes mellitus; Z84.0 Family history of diseases of the skin and subcutaneous tissue

== ENCOUNTER → 2016-11-16 | Outpatient (CLI) | payer OTHER ==
[~2016-11-16] MED LIST changes: -ACETAMINOPHEN 325 MG TAB PO PRN; -ATROPINE SULFATE 0.1 MG/ML 5ML SYR IV PRN; -CIPROFLOXACIN 400MG / D5W IV SCH; -EpHEDrine SULFATE INJ 50 MG/ML AMP IV PRN; -EpHEDrine SULFATE INJ 50 MG/ML AMP ONE; -FENTANYL CITRATE INJ 50 MCG/1 ML 2 ML VIAL IV PRN; -FENTANYL CITRATE INJ 50 MCG/1 ML 2 ML VIAL ONE; -LACTATED RINGER'S 1000ML 1,000 ML IV SCH; -LIDOCAINE HCL 2% 2 ML VIAL (20MG/ML) ONE; -ONDANSETRON INJ 2 MG/ML 2 ML VIAL ONE; -PROPOFOL IV EMULSION 10 MG/ML 20 ML VIAL IV ONE; -SODIUM CHLORIDE 0.9% 1000ML 1,000 ML IV SCH
--- NOTE | 2016-11-16 09:51 | DIAGNOSTIC IMAGING REPORT ---
KUB CLINICAL HISTORY: Nephrolithiasis. COMPARISON STUDY: CT of the abdomen and pelvis March 06, 2016 and KUB November 04, 2016. FINDINGS: Note is made of suspected interval fragmentation of a left lower pole calculus. In aggregate, the fragments measure 7 mm. Pelvic calcifications are unchanged and likely reflect phleboliths. There is no evidence for a bowel obstruction. Postoperative findings from hernia repair are noted. End-stage osteoarthritis of both hips with flattening of the femoral heads is again noted. No ureteral calculi are identified. IMPRESSION: 1. Suspected interval fragmentation of a left renal calculus. 2. No ureteral calculi/fragments identified. Electronically signed by: Jalil Moreno M.D. 11/16/2016 9:50 AM Dictated Date/Time: 11/16/2016 9:46 AM
== END | disposition home or self-care (01) ==
LOC: C.RAD 08:46
PROVIDERS: ATTEND Urology
DX: N20.0 Calculus of kidney (principal)

== ENCOUNTER → 2017-03-02 | Outpatient (CLI) | payer OTHER ==
[2017-03-02 10:09] LABS: BASO % 0.4 %; BASO ABS # 0.02 K/uL (0-0.2); EOS % 2.8 %; EOS ABS # 0.14 K/uL (0-0.5); HEMATOCRIT 47.1 % (42-52); HEMOGLOBIN 16.1 g/dL (14.0-18.0); IG# 0.01 K/uL (0.00-0.02); LYMPH % 17.3 %; LYMPH ABS # 0.88 K/uL (1.2-3.4); MEAN CELL VOLUME 90.6 fL (80-100); MEAN CORPUSCULAR HGB CONC 34.2 g/dl (32-36); MEAN PLATELET VOLUME 9.2 fL (7.4-10.4); MONO % 7.7 %; MONO ABS # 0.39 K/uL (0.11-0.59); NEUT % 71.6 %; NEUT ABS # 3.64 K/uL (1.4-6.5); PLATELET COUNT 238 K/uL (130-400); RED CELL DISTRIBUTION WIDTH CV 12.6 % (11.5-14.5); RED CELL DISTRIBUTION WIDTH SD 41.8 fL (36.4-46.3); WHITE BLOOD COUNT 5.08 K/uL (4.8-10.8)
[2017-03-02 10:56] LABS: BLOOD UREA NITROGEN 16 mg/dl (7-18); CREATININE 0.83 mg/dl (0.60-1.40); GLUCOSE 92 mg/dl (70-99)
[2017-03-02 10:57] LABS: ALBUMIN 4.3 gm/dl (3.4-5.0); ALT/SGPT 30 U/L (12-78); CALCIUM 10.3 mg/dl (8.5-10.1); CARBON DIOXIDE 30 mmol/L (21-32); POTASSIUM 4.3 mmol/L (3.5-5.1); SODIUM 137 mmol/L (136-145)
[2017-03-02 10:59] LABS: ALKALINE PHOSPHATASE 73 U/L (45-117); AST/SGOT 18 U/L (15-37); TOTAL PROTEIN 7.5 gm/dl (6.4-8.2)
== END | disposition home or self-care (01) ==
LOC: C.LAB 09:15
PROVIDERS: ATTEND Urology
DX: C61 Malignant neoplasm of prostate (principal)

== ENCOUNTER → 2017-03-10 | Outpatient (CLI) | payer OTHER ==
[2017-03-10 14:03] VITALS: BP 142/93; PULSE 83; TEMP 36.3; O2SAT 94
--- NOTE | 2017-05-25 14:17 | CODING QUERY NO DIAGNOSIS ---
: 1945 TREATMENT RENDERED WITHOUT A DIAGNOSIS To promote full compliance with coding requirements relating to patient care, physician participation is requested in all cases of potable water treatment operator uncertainty. Please assist us with providing a diagnosis/symptom for the test(s) below: A diagnosis/symptom was not documented on your Order. A valid diagnosis/symptom is required to bill all insurances. Please remember that we are unable to code a diagnosis of rule out, probable, possible, questionable, or suspected. Tests that require a diagnosis: DOS: 03/10/17 PT VISIT DIAGNOSIS: Provider Signature: Date: Thank you Kelley [facility] Health Information Management Once completed, please kindly fax back to [phone] For questions please call [phone]
--- NOTE | 2017-05-26 10:19 | Radiation Oncology Follow-Up ---
Radiation Oncology Follow-Up Date of Visit March 10, 2017. Reason For Visit Annual follow-up Radiation Completion Date IMRT - 08/02/13 Diagnosis (1) Prostate cancer Status: Resolved Onset Date: 11/24/2012 Location: Both lobes of the prostate Histology Subtype: Adenocarcinoma Stage: IV Permanent Comment: Rising PSA to 69.09 Status post ultrasound-guided biopsies. Biopsy stage T2c [place] 3+3, 3+4, 4+3, and 3+5 Status post laparoscopic robotic-assisted retropubic prostatectomy and bilateral lymph node dissection Stage pT3 pN1 M0 Status post completion of radiation therapy utilizing IMRT/IGRT completed 2013 received 7040 cGy Last Edited By: Funmilayo Hamm on Mar 04, 2015 15:27 History of Present Illness Mr. Sanz has a past history of on going back approximately 11 years when there was a slight rise in PSA to the range of 4 to 5. At that time he was told he had a very small gland and ultrasound and biopsies were suggested. The patient chose to proceed with observation at that time and unfortunately, since that time no further PSAs were drawn. Recent comprehensive blood work performed on September 29, 2012 showed a marked elevation of PSA to 63.6. This was repeated on October 30, 2012 and remained high at 69.09. The patient had been seen by Dr. Sherwood as earlier he presented with abdominal pain which was thought to be related to a bleed associated with the left adrenal gland. The patient was being followed by Dr. Sherwood for this but no specific treatments were required. His digital rectal exam at that time showed no palpable nodules and a nontender prostate. The prostate was felt to be enlarged at greater than 70 grams. He felt the prostate was firm but without nodules. As noted above, he repeated the PSA and it returned at 69.09. Because of the persistent elevated PSA, he recommended a prostate biopsy. He ordered an MRI of the abdomen to evaluate the abdominal bleed. This showed retroperitoneal hemorrhage of uncertain etiology. No other abdominal abnormalities were appreciated. He ordered a CT scan of the abdomen utilizing the adrenal mass protocol on November 21. This showed a 1.5 cm left adrenal nodule that does not meet the criteria for an adenoma. This was seen previously and is stable compared to a previous study in 2007. No evidence of acute hemorrhaging was noted. He therefore proceeded with an ultrasound-guided prostate biopsy on November 24, 2012. Total of 14 biopsies were taken. Of the 14 biopsies, 2 of 2 biopsies from the left base were positive for an adenocarcinoma, [place] grade of 3 + 5 involving 75% of the tissue submitted with perineural invasion identified. Two of two biopsies from the right base revealed an adenocarcinoma, [place] grade of 3 + 4 involving 95% of the core tissue sample. Two of two biopsies from the left mid gland revealed an adenocarcinoma, [place] grade of 3 + 4 involving 80% of the core tissue sample. Two of two biopsies from the right mid gland revealed an adenocarcinoma, [place] grade of 4 + 3, involving essentially 100% of the core tissue sample. Two of two biopsies from the left apex revealed an adenocarcinoma, [place] grade of 3 + 4 involving 40% of the core tissue sample. One of two biopsies from the right apex revealed an adenocarcinoma, [place] grade of 3 + 4 involving 20% of the core tissue sample. One of one biopsy from the left anterior revealed an adenocarcinoma, [place] grade of 3 + 3, involving 10% of the core tissue sample. The right anterior biopsy revealed benign prostatic tissue. Therefore a total of 12 of 14 biopsies were positive. Case [id number]. His estimated gland volume was 78.5 ccs. The patient returned to discuss these biopsy findings with Dr. Sherwood. The role of radical robotic prostatectomy was discussed and patient was tentatively scheduled for December 28. Dr. Sherwood obtained additional staging procedures. The patient had previously had a CT scan of the abdomen and pelvis showing no evidence of enlarged pelvic nodes. He had a bone scan December 05 which showed a questionable area at T11. MRI of the thoracic spine was therefore performed on December 07. This showed moderate degenerative changes throughout the entire thoracic region with the activity at T11 as seen on the patient's bone scan felt to be degenerative in nature. Thus there was no evidence of metastatic bony disease. All options had been reviewed with the patient he underwent a radical robotic prostatectomy. This was performed on 01/16/2013. This revealed adenocarcinoma, recent 3+5, extraprostatic extension, seminal vesicles involved. Perineural invasion. Stage was pT2 pN1. One of 4 nodes were positive. He steadily recovered from his surgery. He received physical therapy for incontinence through [facility]. He was then able to return back to our office and undergo salvage radiation therapy. This was given from 06/11/2013 to 08/02/2013. He received 7040 cGy. Interim History He has been doing well over this past year. He denies any change in his urinary status. He gave an AUA score of 6. He completed and expanded prostate cancer index composite for clinical practice and gave a score of 3 of 12 and urinary incontinence symptoms. He gave a score of 2 of 12 and urinary irritation symptoms. He gave a score of 1 of 12 and bowel symptoms. He gave a score of 8 of 10 and sexual symptoms. He gave a score of 0 of 12 and hormonal vitality symptoms. His total was 14 of 60. He has had recheck PSAs. He had a PSA October 12, 2016 that was 0.487. He had a PSA March 02, 2017 that was 0.560. Allergies Coded Allergies: Oxycodone (Verified Allergy, Unknown, unknown, 11/05/16) pt and pt stated he had "disjointed syndrome" Home Medications Scheduled Ascorbic Acid (Ascorbic Acid), 500 MG PO QAM Calcium Carbonate (Calcium 600), 1 TAB PO DAILY Cholecalciferol (D 1999), 1,000 UNITS PO QAM Fish Oil ([place]-3), 1,200 MG PO ON HOLD Yjyfwfwwduu-Dxiwskxikrq-Jwikhq (Move Free Joint Health Ad), 1 TAB PO QAM Magnesium Oxide (Magnesium), 250 MG PO QAM Misc Natural Products (Osteo Bi-Flex Advanced Tr), 1 TAB PO TID Multivitamin (Multivitamin), 1 TAB PO QAM Naproxen Sodium (Aleve), 1 CAP PO ON HOLD Turmeric (Curcuma Longa) (Turmeric), 750 MG PO BID Scheduled PRN Acetaminophen (Tylenol Arthritis Ext Rel), 650 MG PO UD PRN for Pain Review of Systems Gastrointestinal: Symptoms: WNL Oral: Symptoms: No Problems Respiratory: Symptoms: WNL Urinary: Symptoms: Nocturia Comments: Nocturia x 4-5 (since litho), see AUA & EPIC, hx kidney stones Skin: Symptoms: No Problems Physical Exam Fatigue: None General Appearance: no apparent distress, + pertinent finding (Antalgic gait due to severe degenerative joint disease of the knees) Eyes: normal inspection, EOMI ENT: normal ENT inspection, hearing grossly normal Respiratory/Chest: lungs clear, no respiratory distress, no accessory muscle use Cardiovascular: regular rate, rhythm, no gallop, no murmur Abdomen: non tender, soft, no organomegaly Anal / Rectum: Normal sphincter tone. Prostate bed is flat. No rectal masses no rectal bleeding. Extremities: no pedal edema Neurologic/Psychiatric: no motor/sensory deficits, alert, normal mood/affect Skin: warm/dry Pain Management Patient Reports Pain: Yes Side: Bilateral Pain Location: Knee Initial Pain Intensity: 5.0 Pain Management Plan This is due to severe degenerative joint disease. He takes Naprosyn for the arthritic pain. Laboratory Laboratory Results: were reviewed Laboratory Comments: Reviewed in the interim history. Pathology Pathology Results: were reviewed, and pertinent findings noted in HPI Imaging Imaging Studies: not applicable Assessment & Plan Plan: Continue regular follow-up with his primary care provider and medical oncology. He is for recheck DEXA scan ordered by Dr. Mcfadden. Continue PSAs every 6 months. We asked him to return to our office in 1 year. He may call if he has any questions or concerns in the interim. Total Time In Follow-Up I spent 20 minutes speaking to the patient in performing examination. I spent 15 minutes reviewing information and completing this note. Copy To Wilner Hernandez M.D.; Hussain Murphy D.O.; Flo Singleton M.D.
== END | disposition home or self-care (01) ==
LOC: C.ONC 13:59
PROVIDERS: ATTEND Physician Assistant Medical
DX: C61 Malignant neoplasm of prostate (principal)

== ENCOUNTER → 2017-04-12 | Outpatient (CLI) | payer OTHER ==
[~2017-04-12] MED LIST changes: -ACET-749 PO
== END | disposition home or self-care (01) ==
LOC: C.MAMM 14:29
PROVIDERS: ATTEND Internal Medicine Hematology & Oncology
DX: C61 Malignant neoplasm of prostate (principal); M85.88 Other specified disorders of bone density and structure, other site

== ENCOUNTER → 2017-06-13 | Outpatient (CLI) | payer OTHER ==
--- NOTE | 2017-06-13 09:53 | DIAGNOSTIC IMAGING REPORT ---
[facility] CLINICAL HISTORY: S37.019A Hematoma of kidney without rupture of [id number] COMPARISON STUDY: 11/16/2016 FINDINGS: There is a 6 mm left renal calculus. There is scattered stool present without the colon. There are multiple coil-like metallic radiopacities consistent with a prior hernia mesh repair. Degenerative changes are present within the lumbar spine. 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 IMPRESSION: 7 mm left renal calculus. Electronically signed by: Shyam Joseph M.D. 06/13/2017 9:52 AM Dictated Date/Time: 06/13/2017 9:50 AM
== END | disposition home or self-care (01) ==
LOC: C.RAD 09:16
PROVIDERS: ATTEND Urology
DX: S37.019A Minor contusion of unspecified kidney, initial encounter (principal); X58.XXXA Exposure to other specified factors, initial encounter; N20.0 Calculus of kidney

== ENCOUNTER 2022-05-28 17:32 | Inpatient (IN) ==
--- NOTE | 2022-05-28 19:35 | Emergency Department Note ---
Impression & Plan Weakness, Arthritis, Acute dehydration ED Provider Note NAME: JUAN R PISANO AGE: 76 SEX: M : 1945 ARRIVES VIA: Ambulance INFORMANT: Patient, ED PROVIDER(S): Srikanth Woody MD CHIEF COMPLAINT: Weakness MEDICAL DECISION MAKING: Patient does present with bilateral lower extremity weakness IV was established blood work was obtained. Normal white count H&H and platelet count. Kidney function is unremarkable but with some mild prerenal azotemia. LFTs unremarkable. Patient's B12 is elevated. Folate is normal. Urinalysis does show ketones. COVID-negative. I did speak with the on-call hospitalist given the patient's inability to ambulate appropriately and there is additional safety concern the patient may benefit from continued monitoring PT and OT. Patient was admitted by Dr. Calderon. Prior /Outside records reviewed: I did review the patient's urology visit with Dr. Singleton from April 2022. Differential diagnosis: Infection, dehydration, metabolic abnormality, hypo/hyperglycemia, electrolyte disturbance, anemia, hypoxia, cardiac sources, intracerebral event, toxicologic, neurologic, as well as other pathologies. Diagnostics, as interpreted by me: ECG: None Cardiac monitoring: An order was placed for continuous cardiac monitoring. The monitor shows a rate of 77 with sinus rhythm. Patient was placed on pulse oximetry Medical decision rules: None Imaging studies: See below HPI: Patient presents due to concern for sudden onset of lower extremity weakness. The patient does have a known history of prior arthritis does use arm crutches. The patient reportedly had gotten up to stand and felt very weak at the right knee which gave out. Patient's was able to provide him with a rolling office chair which he braced himself on and then lowered himself to the ground. The patient denies any significant trauma with the fall denies any head strike or LOC. Patient states that he used to be on Lupron for known history of elevated PSA and does follow with Dr. Singleton. The patient states that they were trying to take him off this and is unsure as to whether not this may also be contributory. The patient has not had any alcohol today but typically does have several shots and mixed drinks and has been doing so for several years. Patient states that all of this occurred while he was out in the garage and he was putting air in his tires. Patient states that his sleep and appetite have been okay. Patient has not had any associated nausea vomiting or diarrhea. Patient denies any strokelike symptoms i.e. focal weakness, numbness or tingling no slurred speech or facial droop PAST MEDICAL HISTORY: See Below PAST SURGICAL HISTORY: See Below SOCIAL HISTORY: See Below HOME MEDICATIONS: See Below ALLERGIES: See Below VITALS: See Below PHYSICAL EXAMINATION: GENERAL: NAD, wearing a mask, non-toxic. EYE EXAM: Normal conjunctiva. PERRL, no anisocoria and EOM's grossly intact w/o pain. NECK: Supple, no nuchal rigidity, no adenopathy, non-tender. No signs of meningismus. FROM of the neck with good chin to chest and neck extension. No stridor. LUNGS: Clear to auscultation. Normal chest wall mechanics. HEART: NSR, no MRG. ABDOMEN: Abdomen soft, non-tender, no masses, no rebound or guarding. BACK: No CVA TTP. SKIN: No rashes and no bruising. UPPER EXTREMITIES: Upper extremities are grossly normal. LOWER EXTREMITIES: Grossly normal, 2+ symmetric bilateral lower extremity edema without any calf pain NEURO EXAM: A&O x3, cranial nerves II-XII grossly intact, normal speech, moves all 4 extremities but weakly moves the bilateral lower extremities but symmetrically. Past Med/Surg History Medical History Prostate cancer Recurrent nephrolithiasis Surgical History History of hernia repair History of lymph node biopsy History of umbilical hernia repair Status post biopsy of skin Family History Father Prostate cancer Other Cancer Diabetes Skin cancer Social History Smoking Status: Never smoker Hx Alcohol Use: Yes marital status: current occupational status: retired Feels Safe at Home: Yes Allergies Allergies Allergy/AdvReac Type Severity Reaction Status Date / Time oxycodone Allergy Unknown unknown Verified 05/28/22 21:37 Home Meds Home Medications Medication Instructions Recorded Confirmed acetaminophen 650 mg 650 mg PO TID 01/12/19 05/28/22 tablet,extended release (Tylenol Arthritis Pain) naproxen sodium 220 mg capsule 220 mg PO BID 01/12/19 05/28/22 (Aleve) calcium carbonate 600 mg calcium 600 mg PO [id number] 05/28/22 05/28/22 (1,500 mg) tablet (Calcium) cholecalciferol (vitamin D3) 25 25 mcg PO DAILY 05/28/22 05/28/22 mcg (1,000 unit) capsule (Vitamin D3) garlic 1,000 mg capsule 1,000 mg PO DAILY 05/28/22 05/28/22 magnesium 250 mg tablet 250 mg PO DAILY 05/28/22 05/28/22 pvrpdgxmtssf-dvw-ucjsr acid-vit 1 tab PO DAILY 05/28/22 05/28/22 K-lycop 400 mcg-20 mcg-370 mcg tablet (Men's 50 Plus Multivitamin) turmeric (bulk) 95 % powder 1 ea miscellaneous DAILY 05/28/22 05/28/22 (Curcumin) Results & Data (ED) Vital Signs Vital Signs - 24 hr 05/28/22 17:41 05/28/22 20:43 05/28/22 20:43 Temperature 36.6 C Temperature Source Temporal Artery Scan Pulse Rate 95 H 87 Pulse Rate [Right Apical] 87 Pulse Rate from SpO2 Sensor Respiratory Rate 20 18 18 Respiratory Effort / Characteristics Non-Labored Non-Labored Spontaneous Respiratory Depth Normal Normal Respiratory Pattern Regular Blood Pressure 135/77 Blood Pressure [Right Arm] 154/71 H Blood Pressure Mean 96 Blood Pressure Mean [Right Arm] 98 Pulse Oximetry 94 92 92 Oxygen Delivery Method Room Air Room Air Room Air Sepsis Recent Fever Within 48 Hours No Sepsis New/Unexplained Change in Mental Status N/A Sepsis Action Taken by Nursing No Action Required 05/28/22 21:41 05/28/22 22:00 Temperature Temperature Source Pulse Rate 117 H 77 Pulse Rate [Right Apical] Pulse Rate from SpO2 Sensor 78 76 Respiratory Rate 19 22 Respiratory Effort / Characteristics Respiratory Depth Respiratory Pattern Blood Pressure 168/78 H 175/80 H Blood Pressure [Right Arm] Blood Pressure Mean 108 111 Blood Pressure Mean [Right Arm] Pulse Oximetry 94 95 Oxygen Delivery Method Room Air Room Air Sepsis Recent Fever Within 48 Hours Sepsis New/Unexplained Change in Mental Status Sepsis Action Taken by [facility] Medications Current Medication List: was personally reviewed by me Laboratory Data Attestation: I reviewed the patient's lab results. 05/28/22 20:26 05/28/22 20:26 Lab Results 05/28/22 05/28/22 05/28/22 Range/Units 20:05 20:26 20:26 WBC 8.26 (4.8-10.8) K/ul RBC 5.15 (4.70-6.10) M/uL Hgb 15.7 (14.0-18.0) g/dl Hct 45.4 (42.0-52.0) % MCV 88.2 (80.0-100.0) fL MCH 30.5 (25.0-34.0) pg MCHC 34.6 (32.0-36.0) g/dL RDW Std Deviation 41.7 (36.4-46.3) fL RDW Coeff of Alonso 12.9 (11.5-14.5) % Plt Count 239 (130-400) K/uL MPV 9.4 (9.4-12.4) fL Immature Gran % (Auto) 0.2 % Neut % (Auto) 87.2 % Lymph % (Auto) 7.3 % Evans % (Auto) 5.0 % Eos % (Auto) 0.1 % Baso % (Auto) 0.2 % Neut # (Auto) 7.20 H (1.40-6.50) K/uL Lymph # (Auto) 0.60 L (1.2-3.4) K/uL Evans # (Auto) 0.41 (0.11-0.59) K/uL Eos # (Auto) 0.01 (0-0.50) K/uL Baso # (Auto) 0.02 (0-0.2) K/uL Immature Gran # (Auto) 0.02 (0.01-0.20) K/uL Sodium 140 (136-145) mmol/L Potassium 4.4 (3.5-5.1) mmol/L Chloride 105 (98-107) mmol/L Carbon Dioxide 26 (21-32) mmol/L Anion Gap 9 (3-11) BUN 27 H (6-23) mg/dl Creatinine 0.80 (0.6-1.4) mg/dl Est Cr Clr Drug Dosing 143.4 ml/min Est GFR ( Amer) 100.6 ml/min Est GFR (Non-Af Amer) 86.8 ml/min BUN/Creatinine Ratio 33.8 H (10-20) Glucose 108 H (70-99(Fasting)) mg/dl Calcium 9.9 (8.6-10.3) mg/dl Phosphorus 3.0 (2.5-4.9) mg/dl Magnesium 2.1 (1.7-2.4) mg/dl Total Bilirubin 1.0 (0.2-1.0) mg/dl AST 30 (13-39) U/L ALT 25 (7-52) U/L Alkaline Phosphatase 75 (34-104) U/L Total Protein 7.2 (6.0-8.3) gm/dl Albumin 4.2 (3.4-5.0) gm/dl Globulin 3.0 (2.5-4.0) gm/dl Albumin/Globulin Ratio 1.4 (0.9-2) Vitamin B12 (180-914) pg/ml Folate (>5.38) ng/ml TSH (0.300-4.500) uIu/ml Urine Color Yellow Urine Appearance Clear (Clear) Urine pH 5.5 (4.5-7.5) Ur Specific [place] 1.025 (1.000-1.030) Urine Protein 1+ H (Negative) Urine Glucose (UA) Negative (Negative) Urine Ketones 2+ H (Negative) Urine Blood Negative (Negative) Urine Nitrite Negative (Negative) Urine Bilirubin Negative (Negative) Urine Urobilinogen Negative (Negative) Ur Leukocyte Esterase Negative (Negative) Urine WBC (Auto) 1-5 (0-5) /hpf Urine RBC (Auto) 0-4 (0-4) /hpf U Hyaline Cast (Auto) 0 (0-5) /lpf U Epithel Cells (Auto) 20-30 H (0-5) /lpf Urine Bacteria (Auto) Negative (Negative) Urine Crystals Not Reportable SARS-CoV-2, RNA, NAAT (NEGATIVE) 05/28/22 05/28/22 05/28/22 Range/Units 20:26 20:26 20:49 WBC (4.8-10.8) K/ul RBC (4.70-6.10) M/uL Hgb (14.0-18.0) g/dl Hct (42.0-52.0) % MCV (80.0-100.0) fL MCH (25.0-34.0) pg MCHC (32.0-36.0) g/dL RDW Std Deviation (36.4-46.3) fL RDW Coeff of Alonso (11.5-14.5) % Plt Count (130-400) K/uL MPV (9.4-12.4) fL Immature Gran % (Auto) % Neut % (Auto) % Lymph % (Auto) % Evans % (Auto) % Eos % (Auto) % Baso % (Auto) % Neut # (Auto) (1.40-6.50) K/uL Lymph # (Auto) (1.2-3.4) K/uL Evans # (Auto) (0.11-0.59) K/uL Eos # (Auto) (0-0.50) K/uL Baso # (Auto) (0-0.2) K/uL Immature Gran # (Auto) (0.01-0.20) K/uL Sodium (136-145) mmol/L Potassium (3.5-5.1) mmol/L Chloride (98-107) mmol/L Carbon Dioxide (21-32) mmol/L Anion Gap (3-11) BUN (6-23) mg/dl Creatinine (0.6-1.4) mg/dl Est Cr Clr Drug Dosing ml/min Est GFR ( Amer) ml/min Est GFR (Non-Af Amer) ml/min BUN/Creatinine Ratio (10-20) Glucose (70-99(Fasting)) mg/dl Calcium (8.6-10.3) mg/dl Phosphorus (2.5-4.9) mg/dl Magnesium (1.7-2.4) mg/dl Total Bilirubin (0.2-1.0) mg/dl AST (13-39) U/L ALT (7-52) U/L Alkaline Phosphatase (34-104) U/L Total Protein (6.0-8.3) gm/dl Albumin (3.4-5.0) gm/dl Globulin (2.5-4.0) gm/dl Albumin/Globulin Ratio (0.9-2) Vitamin B12 1188 H (180-914) pg/ml Folate > 22.30 (>5.38) ng/ml TSH 1.126 (0.300-4.500) uIu/ml Urine Color Urine Appearance (Clear) Urine pH (4.5-7.5) Ur Specific [place] (1.000-1.030) Urine Protein (Negative) Urine Glucose (UA) (Negative) Urine Ketones (Negative) Urine Blood (Negative) Urine Nitrite (Negative) Urine Bilirubin (Negative) Urine Urobilinogen (Negative) Ur Leukocyte Esterase (Negative) Urine WBC (Auto) (0-5) /hpf Urine RBC (Auto) (0-4) /hpf U Hyaline Cast (Auto) (0-5) /lpf U Epithel Cells (Auto) (0-5) /lpf Urine Bacteria (Auto) (Negative) Urine Crystals SARS-CoV-2, RNA, NAAT NEGATIVE (NEGATIVE) Administered Medications Lactated Ringer's (Lr) 1,000 mls @ 125 mls/hr IV .Q8H JOHN PAUL Stop: 05/29/22 16:29 Last Admin: 05/29/22 00:33 Dose: 125 mls/hr Documented By: SERGEY Discontinued Medications Thiamine HCl 100 mg/ Syringe 10 mls @ 2 mls/min IV NOW STA Stop: 05/28/22 19:51 Last Admin: 05/28/22 20:46 Dose: 2 mls/min Documented By: SIMONE Sodium Chloride (Nss 1000ml) 500 mls @ 999 mls/hr IV .Q31M ONE Stop: 05/28/22 21:42 Last Infusion: 05/28/22 22:14 Dose: 0 mls/hr Documented By: Admin: 05/28/22 21:39 Dose: 999 mls/hr Documented By: SIMONE Multivitamins/Minerals (Cerovite Adv Formula Tab) 1 tab PO NOW STA Stop: 05/28/22 19:48 Last Admin: 05/28/22 20:46 Dose: 1 tab Documented By: SIMONE Discharge Plan Visit Data Chief Complaint: Leg Weakness, Bilateral Stated Complaint: LOWER LEG WEAKNESS ED Provider: Srikanth Woody Discharge Problem: Weakness, Arthritis, Acute dehydration Patient Disposition: Admitted As Inpatient Discharge Instructions Interventions: ED Discharge Assessment Last Done: 05/28/22 23:35
[2022-05-28] MEDS ORDERED: CEROVITE ADV FORMULA TAB PO STA (19:47)
[2022-05-28] MEDS ORDERED: THIAMINE HCL 100 MG in SYRINGE 9 ML IV STA (19:47)
[2022-05-28 20:42] LABS: Appearance Urine Clear (Clear); Bacteria Urine Automated Negative (Negative); Bilirubin Urine Negative (Negative); Blood Urine Negative (Negative); Color Urine Yellow; Epithelial Cell Urine Auto 20-30 /lpf (0-5); Glucose Urine UA Negative (Negative); Ketones Urine 2+ (Negative); Leukocyte Esterase Urine Negative (Negative); Nitrite Urine Negative (Negative); Protein Urine 1+ (Negative); RBC Urine Automated 0-4 /hpf (0-4); Specific Gravity Urine 1.025 (1.000-1.030); Urobilinogen Urine Negative (Negative); pH Urine 5.5 (4.5-7.5)
[2022-05-28 20:43] LABS: Basophils # (auto) 0.02 K/uL (0-0.2); Basophils % (auto) 0.2 %; Eosinophils # (auto) 0.01 K/uL (0-0.50); Eosinophils % (auto) 0.1 %; Hematocrit (blood only) 45.4 % (42.0-52.0); Hemoglobin 15.7 g/dl (14.0-18.0); Immature Granulocytes # (auto) 0.02 K/uL (0.01-0.20); Immature Granulocytes % (auto) 0.2 %; Lymphocytes % (auto) 7.3 %; Mean Corpuscular Hemoglobin 30.5 pg (25.0-34.0); Mean Corpuscular Hgb Conc 34.6 g/dL (32.0-36.0); Mean Corpuscular Volume 88.2 fL (80.0-100.0); Mean Platelet Volume 9.4 fL (9.4-12.4); Monocytes # (auto) 0.41 K/uL (0.11-0.59); Neutrophils % (auto) 87.2 %; Platelet Count 239 K/uL (130-400); RDW Coefficient of Variation 12.9 % (11.5-14.5); RDW Standard Deviation 41.7 fL (36.4-46.3); Red Blood Count 5.15 M/uL (4.70-6.10); White Blood Count 8.26 K/ul (4.8-10.8)
[2022-05-28 21:02] LABS: Albumin Globulin Ratio 1.4 (0.9-2); Albumin Level 4.2 gm/dl (3.4-5.0); BUN Creatinine Ratio 33.8 (10-20); Calcium 9.9 mg/dl (8.6-10.3); Creatinine Clr Calc Pharmacy 143.4 ml/min; Est GFR (African American) 100.6 ml/min; Est GFR (Non-African American) 86.8 ml/min; Magnesium 2.1 mg/dl (1.7-2.4); Potassium 4.4 mmol/L (3.5-5.1); Total Protein 7.2 gm/dl (6.0-8.3)
[2022-05-28] MEDS ORDERED: SODIUM CHLORIDE 0.9% 1000ML 500 ML IV ONE (21:12)
[2022-05-28 21:14] LABS: Cast Urine Automated 0 /lpf (0-5)
[2022-05-28 21:28] LABS: Vitamin B12 1188 pg/ml (180-914)
--- NOTE | 2022-05-28 22:08 | History & Physical Report ---
Date of Service May 28, 2022 Assessment & Plan (1) Weakness: Plan: 76yo male with history of prostate cancer s/p robotic therapy, radiation and Lupron therapy presenting with bilateral LE weakness, pain and buckling in the right knee. Labs suggestive of mild dehydration - elevated BUN and 1+ ketones present on urine. Possible injury to right medial meniscus given buckling of knee, tenderness to palpation -Observation to medical -Check X-ray right knee 3V -Check X-ray lumbar spine - h/o prostate CA, increasing PSA and bilateral LE weakness -IVF -Pain control with Tylenol and Ibuprofen PRN -PT/OT Patient has history of daily EtOH use. He drinks one mixed drink daily - vodka and low sodium V8 juice. He has no history of EtOH withdrawal. Presently showing no evidence of withdrawal. He was administered IV Thiamine, MVI in the ER -Monitor for EtOH withdrawal F/E/N - LR at 125mL/hr x 2 liters, electrolytes WNL, Regular diet as tolerated Ppx - Low risk for DVT, SCDs Code - Full per discussion with patient Dispo - Observation to medical History of Present Illness Chief Complaint: Leg weakness Primary Care Provider: Wilner Hernandez MD Laz Sanz is a pleasant 76yo male presenting with bilateral LE weakness R>L. Patient with history of prostate cancer s/p robotic surgery, salvage rad iation and Lupron therapy. Patient follows with Urology . Last seen 04/28/22. He is being followed for a slowly rising PSA. Patient reports chronic bilateral LE weakness as well as arthritis. This morning he woke up in his usual state of health. He performed his routine exercises - stationary bike and some pushups and arm weights. He then had lunch and went into the garage to work on the tires of his car. He reports his right leg buckled and "wouldn't work". Patient did sustain a soft fall - no LOC or head trauma. He was unable to get up. 911 was called and he was transported to [facility]. He has some mild pain on the medial side of the right knee. NO additional complaints at this time. Specifically patient denies fever, chills, chest pain, cough, SOB. He denies abdominal pain, nausea, vomiting, diarrhea or constipation. No OSMAN, visual changes, numbness/tingling. He has stable urinary incontinence. No changes in bowel habits. No worsening back pain. In the ER he is afebrile, HD stable, NAD ER Course: Thiamine MVI NSS x 500mL Allergies Allergy/AdvReac Type Severity Reaction Status Date / Time oxycodone Allergy Unknown unknown Verified 05/28/22 21:37 Home Medications Medication Instructions Recorded Confirmed Type acetaminophen 650 mg 650 mg PO TID 01/12/19 05/28/22 History tablet,extended release (Tylenol Arthritis Pain) naproxen sodium 220 mg capsule 220 mg PO BID 01/12/19 05/28/22 History (Aleve) calcium carbonate 600 mg calcium 600 mg PO 3XWK 05/28/22 05/28/22 History (1,500 mg) tablet (Calcium) cholecalciferol (vitamin D3) 25 25 mcg PO DAILY 05/28/22 05/28/22 History mcg (1,000 unit) capsule (Vitamin D3) garlic 1,000 mg capsule 1,000 mg PO DAILY 05/28/22 05/28/22 History magnesium 250 mg tablet 250 mg PO DAILY 05/28/22 05/28/22 History okopobvjakhw-oad-ydeuz acid-vit 1 tab PO DAILY 05/28/22 05/28/22 History K-lycop 400 mcg-20 mcg-370 mcg tablet (Men's 50 Plus Multivitamin) turmeric (bulk) 95 % powder 1 ea miscellaneous DAILY 05/28/22 05/28/22 History (Curcumin) Past Med/Surg History Medical History Prostate cancer Recurrent nephrolithiasis Surgical History History of hernia repair History of lymph node biopsy History of umbilical hernia repair Status post biopsy of skin Family History Father Prostate cancer Other Cancer Diabetes Skin cancer Social History Smoking Status: Never smoker Hx Alcohol Use: Yes marital status: current occupational status: retired Feels Safe at Home: Yes Review of Systems Review of Systems: All systems reviewed & are unremarkable except as noted in HPI & below Physical Exam Physical Exam: General: patient resting comfortably, NAD, non-toxic in appearance, AA&O x 4 Skin: warm, dry, intact, no rashes or lesions HEENT: NC/AT, PERRL, EOMI, anicteric sclera, conjunctiva without injection, external ear normal to inspection and nontender, nares patent, moist mucus membranes, dentition intact, no oropharyngeal lesions, neck supple, trachea midline, no LAD, no thyromegaly, no JVD Heart: +S1/S2, regular, no m/r/g Lungs: equal air entry bilaterally, no rales/rhonchi/wheezes Abd: +BS, soft, NT/ND, no masses/organomegaly/ascites Ext: warm, 2+ pulses in UE/LE bilaterally, no clubbing/cyanosis or edema, tenderness with palpation of right medial knee. No anterior/posterior laxity. Mild medial tenderness elicited by Abigail test Neuro: nonfocal, patient AA&O x 4, speech intact, no facial droop, moving all extremities on command with equal strength 5/5 Results & Data Results & Data Vital Signs (Past 12 Hours) Vital Signs Temp Pulse Pulse Resp BP BP Pulse Ox 05/28/22 20:43 87 18 92 05/28/22 20:43 87 18 154/71 H 92 05/28/22 17:41 36.6 C 95 H 20 135/77 94 O2 Del Method 05/28/22 20:43 Room Air 05/28/22 20:43 Room Air 05/28/22 17:41 Room Air Laboratory Results Laboratory Results WBC 8.26 K/ul (4.8-10.8) 05/28/22 20:26 RBC 5.15 M/uL (4.70-6.10) 05/28/22 20:26 Hgb 15.7 g/dl (14.0-18.0) 05/28/22 20:26 Hct 45.4 % (42.0-52.0) 05/28/22 20:26 MCV 88.2 fL (80.0-100.0) 05/28/22 20:26 MCH 30.5 pg (25.0-34.0) 05/28/22 20: MCHC 34.6 g/dL (32.0-36.0) 05/28/22 20: RDW Std Deviation 41.7 fL (36.4-46.3) 05/28/22 20: RDW Coeff of Alonso 12.9 % (11.5-14.5) 05/28/22: Plt Count 239 K/uL (130-400) 05/28/22 20: MPV 9.4 fL (9.4-12.4) 05/28/22 20: Immature Gran % (Auto) 0.2 % 05/28/22: Neut % (Auto) 87.2 % 05/28/22: Lymph % (Auto) 7.3 % 05/28/22: [place] % (Auto) 5.0 % 05/28/22: Eos % (Auto) 0.1 % 05/28/22: Baso % (Auto) 0.2 % 05/28/22: Neut # (Auto) 7.20 K/uL (1.40-6.50) H 05/28/22: Lymph # (Auto) 0.60 K/uL (1.2-3.4) L 05/28/22 20: [place] # (Auto) 0.41 K/uL (0.11-0.59) 05/28/22 20: Eos # (Auto) 0.01 K/uL (0-0.50) 05/28/22 20: Baso # (Auto) 0.02 K/uL (0-0.2) 05/28/22 20: Immature Gran # (Auto) 0.02 K/uL (0.01-0.20) 05/28/22 20: Sodium 140 mmol/L (136-145) 05/28/22 20: Potassium 4.4 mmol/L (3.5-5.1) 05/28/22: Chloride 105 mmol/L (98-107) 05/28/22 20: Carbon Dioxide 26 mmol/L (21-32) 05/28/22 20: Anion Gap 9 (3-11) 05/28/22 20: BUN 27 mg/dl (6-23) H 05/28/22: Creatinine 0.80 mg/dl (0.6-1.4) 05/28/22: Est Cr Clr Drug Dosing 143.4 ml/min 05/28/22 20: Est GFR ( Amer) 100.6 ml/min 05/28/22 20: Est GFR (Non-Af Amer) 86.8 ml/min 05/28/22 20: BUN/Creatinine Ratio 33.8 (10-20) H 05/28/22 20: Glucose 108 mg/dl (70-99(Fasting)) H 05/28/22 20: Calcium 9.9 mg/dl (8.6-10.3) 05/28/22 20: Phosphorus 3.0 mg/dl (2.5-4.9) 05/28/22 20: Magnesium 2.1 mg/dl (1.7-2.4) 05/28/22: Total Bilirubin 1.0 mg/dl (0.2-1.0) 05/28/22 20: AST 30 U/L (13-39) 05/28/22 20: ALT 25 U/L (7-52) 05/28/22 20: Alkaline Phosphatase 75 U/L (34-104) 05/28/22 20: Total Protein 7.2 gm/dl (6.0-8.3) 05/28/22 20: Albumin 4.2 gm/dl (3.4-5.0) 05/28/22: Globulin 3.0 gm/dl (2.5-4.0) 05/28/22 20: Albumin/Globulin Ratio 1.4 (0.9-2) 05/28/22 20: Vitamin B12 1188 pg/ml (180-914) H 05/28/22 20: Folate > 22.30 ng/ml (>5.38) 05/28/22 20: TSH 1.126 uIu/ml (0.300-4.500) 05/28/22 20: Urine Color Yellow 05/28/22 20: Urine Appearance Clear (Clear) 05/28/22 20: Urine pH 5.5 (4.5-7.5) 05/28/22 20: Ur Specific [place] 1.025 (1.000-1.030) 05/28/22 20:05 Urine Protein 1+ (Negative) H 05/28/22 20:05 Urine Glucose (UA) Negative (Negative) 05/28/22 20:05 Urine Ketones 2+ (Negative) H 05/28/22 20:05 Urine Blood Negative (Negative) 05/28/22 20:05 Urine Nitrite Negative (Negative) 05/28/22 20:05 Urine Bilirubin Negative (Negative) 05/28/22 20:05 Urine Urobilinogen Negative (Negative) 05/28/22 20:05 Ur Leukocyte Esterase Negative (Negative) 05/28/22 20:05 Urine WBC (Auto) 1-5 /hpf (0-5) 05/28/22 20:05 Urine RBC (Auto) 0-4 /hpf (0-4) 05/28/22 20:05 U Hyaline Cast (Auto) 0 /lpf (0-5) 05/28/22 20:05 U Epithel Cells (Auto) 20-30 /lpf (0-5) H 05/28/22 20:05 Urine Bacteria (Auto) Negative (Negative) 05/28/22 20:05 Urine Crystals Not Reportable 05/28/22 20:05 SARS-CoV-2, RNA, NAAT NEGATIVE (NEGATIVE) 05/28/22 20:49 PG Care Time/CCT Total # of Minutes Spent Total Time Spent with Patient: Total time spent is greater than 50% in coordination of care (as documented) at patient's floor/unit and/or counseling patient: Coding Level of Care Code 32988 INT INP/OBS CARE 2/55MIN Diagnoses Weakness R53.1
[2022-05-29] MEDS ORDERED: IBUPROFEN 600 MG TAB PO PRN (00:04)
[2022-05-29] MEDS ORDERED: ACETAMINOPHEN 325 MG TAB PO PRN (00:04)
[2022-05-29] MEDS: LACTATED RINGER'S 1,000 ML IV SCH ×4 (00:33→18:17)
[2022-05-29 06:54] LABS: BUN Creatinine Ratio 26.9 (10-20); Calcium 9.6 mg/dl (8.6-10.3); Creatinine Clr Calc Pharmacy 171.2 ml/min; Est GFR (African American) 108.2 ml/min; Est GFR (Non-African American) 93.3 ml/min; Potassium 3.8 mmol/L (3.5-5.1)
--- NOTE | 2022-05-29 07:48 | Hospitalist Progress Note ---
Date of Service May 29, 2022 Assessment & Plan (1) Weakness: Plan: 76yo male with history of prostate cancer s/p robotic therapy, radiation and Lupron therapy presenting with bilateral LE weakness, pain and buckling in the right knee. Labs suggestive of mild dehydration - elevated BUN and 1+ ketones present on urine. Possible injury to right medial meniscus given buckling of knee, tenderness to palpation Obs medical Xray b/l knees, lumbar spine given h/o prostate Ca/increasing PSA B12/TSH wnl Checked CK given fall, mildly elevated to 690. Remains on IVF and will monitor labs on repeat Does have b/l LE edema, but no calf tenderness to check for DVT at present. No evidence for compartment syndrome at present. BUN/Cr improved back to baseline on repeat w/ IVF. He does take aleve 2 tablets daily (1 QAM/1QPM) -- discussed limiting on outpatient Added voltaren for pain control and consider continuing at d/c for topical control. Continue tylenol/ibuprofen for now as seems to be adeqaute at present Xrays w/ OA of knees, R>L w/ effusions Will consult w/ orthopedics for knees Check uric acid/lyme testing as well Xray spine w/ Mild superior endplate compression at T12-L2 without retropulsion is age-indeterminate and likely chronic. Checking vit d level (prior elevations in calcium), check PTH in AM. (Hx L nephrolithiass) PT/OT consults pending Monitor labs on repeat (2) Rhabdomyolysis: Plan: mild elevation of CK. IVF as above, monitor UOP Repeat CK in AM PT/OT consults (3) Arthritis: Plan: as above, voltaren gel ordered. orthopedics consult, PT/OT (4) Acute dehydration: Plan: improved since IVF, continues (5) Elevated prostate specific antigen (PSA): Plan: following w/ urology prior on lupron but taking holiday at present (6) Alcohol use: Plan: Patient has history of daily EtOH use. He drinks one mixed drink daily - vodka and low sodium V8 juice. He has no history of EtOH withdrawal. Presently showing no evidence of withdrawal. He was administered IV Thiamine, MVI in the ER -Monitor for EtOH withdrawal - no evidence at present B12 not deficient (7) Fall: Plan: as above, no LOC/head trauma PT/OT consults Admission and Anticipated Discharge Date Admission Date: May 28, 2022 Supervising Physician Co-Signing Physician Notes The patient was not seen by me. The chart was reviewed. Case discussed with JOE Lanier. Agree with assessment and plan Subjective Eval this morning, doing alright. Reports weakness to his legs, had been due to Lupron per patient/urology and had taken a break. Reported getting legs twisted up walking out to the garage. Notes he thinks he had torn meniscus or something in the past and had brace at home to keep locked and prevent bending backwards. Bilateral knee pain, slightly worse on the right but does have some john growth on the left lateral. D iscussed elevated CK/mild rhabdo likely from fall and remains on IVF. Does have some LE edema/redness/flaking of skin but nontender. Lesion to anterior right leg following w/ dermatology. Multiple prior lesions/removals and surveillance. Denies any fevers/chils, chest pain, shortness of breath, abdominal pain/nausea. +BM this morning. Denied any blood. Typical uses aleeve in am and at night, tylenol once during the day for baseline pain control. He notes his kidney function has been fluctuant. Discussed likely avoidance of NSAIDs beneficial. He went for xrays this morning -- will monitor/consult ortho if needed and await therapy evals. Questions/concerns addressed at this time. Review of Systems Review of Systems: All systems reviewed & are unremarkable except as noted in HPI & below Physical Exam Physical Exam: General: WD/WN male sitting up in bed, NAD, reported just got back from xray HEENT: head normocephalic, atraumatic, mmm, trachea midline Resp: clear, diminished in the bases, no w/c, on room air CV: RRR, no significant m/r/g, GI: +BS, soft/NT MSK/Neuro: follows commands, no facial droop, no slurred speech strength equal in bed 5/5 dorsiflexion/plantar flexion b/l LE tenderness to palpation b/l knees, ?small effusion, +crepitus Skin: reddened/flaky skin b/l LE, scab to anterior R muñoz, prior scar R forearm from prior MOHS surgery. prior scar L shoulder/chest region Psych: AOx3 , cooperative w/ examination Results & Data Results & Data Vital Signs (Past 12 Hours) Vital Signs Temp Pulse Pulse Pulse Resp BP BP 05/29/22 06:54 36.6 C 70 14 180/84 H 05/29/22 00:12 37.1 C 78 16 177/78 H 05/28/22 23:00 73 12 179/89 H 05/28/22 22:30 76 19 132/85 05/28/22 22:00 77 22 175/80 H 05/28/22 21:41 117 H 19 168/78 H 05/28/22 20:43 87 18 05/28/22 20:43 87 18 154/71 H Pulse Ox O2 Del Method 05/29/22 06:54 94 Room Air 05/29/22 00:12 93 Room Air 05/28/22 23:00 93 Room Air 05/28/22 22:30 93 Room Air 05/28/22 22:00 95 Room Air 05/28/22 21:41 94 Room Air 05/28/22 20:43 92 Room Air 05/28/22 20:43 92 Room Air Laboratory Results 05/29/22 05/29/22 05/29/22 Range/Units 08:17 08:17 05:46 WBC (4.8-10.8) K/ul RBC (4.70-6.10) M/uL Hgb (14.0-18.0) g/dl Hct (42.0-52.0) % MCV (80.0-100.0) fL MCH (25.0-34.0) pg MCHC (32.0-36.0) g/dL RDW Std Deviation (36.4-46.3) fL RDW Coeff of Alonso (11.5-14.5) % Plt Count (130-400) K/uL MPV (9.4-12.4) fL Immature Gran % (Auto) % Neut % (Auto) % Lymph % (Auto) % [place] % (Auto) % Eos % (Auto) % Baso % (Auto) % Neut # (Auto) (1.40-6.50) K/uL Lymph # (Auto) (1.2-3.4) K/uL [place] # (Auto) (0.11-0.59) K/uL Eos # (Auto) (0-0.50) K/uL Baso # (Auto) (0-0.2) K/uL Immature Gran # (Auto) (0.01-0.20) K/uL Sodium 141 (136-145) mmol/L Potassium 3.8 (3.5-5.1) mmol/L Chloride 107 (98-107) mmol/L Carbon Dioxide 25 (21-32) mmol/L Anion Gap 9 (3-11) BUN 18 (6-23) mg/dl Creatinine 0.67 (0.6-1.4) mg/dl Est Cr Clr Drug Dosing 171.2 ml/min Est GFR ( Amer) 108.2 ml/min Est GFR (Non-Af Amer) 93.3 ml/min BUN/Creatinine Ratio 26.9 H (10-20) Glucose 90 (70-99(Fasting)) mg/dl Calcium 9.6 (8.6-10.3) mg/dl Phosphorus (2.5-4.9) mg/dl Magnesium (1.7-2.4) mg/dl Total Bilirubin (0.2-1.0) mg/dl AST (13-39) U/L ALT (7-52) U/L Alkaline Phosphatase (34-104) U/L Total Creatine Kinase 690 H (30-223) U/L Total Protein (6.0-8.3) gm/dl Albumin (3.4-5.0) gm/dl Globulin (2.5-4.0) gm/dl Albumin/Globulin Ratio (0.9-2) Vitamin B12 (180-914) pg/ml 25-OH Vitamin D Total 32.6 (30-100) ng/ml Folate (>5.38) ng/ml TSH (0.300-4.500) uIu/ml Urine Color Urine Appearance (Clear) Urine pH (4.5-7.5) Ur Specific [place] (1.000-1.030) Urine Protein (Negative) Urine Glucose (UA) (Negative) Urine Ketones (Negative) Urine Blood (Negative) Urine Nitrite (Negative) Urine Bilirubin (Negative) Urine Urobilinogen (Negative) Ur Leukocyte Esterase (Negative) Urine WBC (Auto) (0-5) /hpf Urine RBC (Auto) (0-4) /hpf U Hyaline Cast (Auto) (0-5) /lpf U Epithel Cells (Auto) (0-5) /lpf Urine Bacteria (Auto) (Negative) Urine Crystals SARS-CoV-2, RNA, NAAT (NEGATIVE) 05/28/22 05/28/22 05/28/22 Range/Units 20:49 20:26 20:26 WBC (4.8-10.8) K/ul RBC (4.70-6.10) M/uL Hgb (14.0-18.0) g/dl Hct (42.0-52.0) % MCV (80.0-100.0) fL MCH (25.0-34.0) pg MCHC (32.0-36.0) g/dL RDW Std Deviation (36.4-46.3) fL RDW Coeff of [place]onso (11.5-14.5) % Plt Count (130-400) K/uL MPV (9.4-12.4) fL Immature Gran % (Auto) % Neut % (Auto) % Lymph % (Auto) % [place] % (Auto) % Eos % (Auto) % Baso % (Auto) % Neut # (Auto) (1.40-6.50) K/uL Lymph # (Auto) (1.2-3.4) K/uL [place] # (Auto) (0.11-0.59) K/uL Eos # (Auto) (0-0.50) K/uL Baso # (Auto) (0-0.2) K/uL Immature Gran # (Auto) (0.01-0.20) K/uL Sodium (136-145) mmol/L Potassium (3.5-5.1) mmol/L Chloride (98-107) mmol/L Carbon Dioxide (21-32) mmol/L Anion Gap (3-11) BUN (6-23) mg/dl Creatinine (0.6-1.4) mg/dl Est Cr Clr Drug Dosing ml/min Est GFR ( Amer) ml/min Est GFR (Non-Af Amer) ml/min BUN/Creatinine Ratio (10-20) Glucose (70-99(Fasting)) mg/dl Calcium (8.6-10.3) mg/dl Phosphorus (2.5-4.9) mg/dl Magnesium (1.7-2.4) mg/dl Total Bilirubin (0.2-1.0) mg/dl AST (13-39) U/L ALT (7-52) U/L Alkaline Phosphatase (34-104) U/L Total Creatine Kinase (30-223) U/L Total Protein (6.0-8.3) gm/dl Albumin (3.4-5.0) gm/dl Globulin (2.5-4.0) gm/dl Albumin/Globulin Ratio (0.9-2) Vitamin B12 1188 H (180-914) pg/ml 25-OH Vitamin D Total (30-100) ng/ml Folate > 22.30 (>5.38) ng/ml TSH 1.126 (0.300-4.500) uIu/ml Urine Color Urine Appearance (Clear) Urine pH (4.5-7.5) Ur Specific [place] (1.000-1.030) Urine Protein (Negative) Urine Glucose (UA) (Negative) Urine Ketones (Negative) Urine Blood (Negative) Urine Nitrite (Negative) Urine Bilirubin (Negative) Urine Urobilinogen (Negative) Ur Leukocyte Esterase (Negative) Urine WBC (Auto) (0-5) /hpf Urine RBC (Auto) (0-4) /hpf U Hyaline Cast (Auto) (0-5) /lpf U Epithel Cells (Auto) (0-5) /lpf Urine Bacteria (Auto) (Negative) Urine Crystals SARS-CoV-2, RNA, NAAT NEGATIVE (NEGATIVE) 05/28/22 05/28/22 05/28/22 Range/Units 20:26 20:26 20:05 WBC 8.26 (4.8-10.8) K/ul RBC 5.15 (4.70-6.10) M/uL Hgb 15.7 (14.0-18.0) g/dl Hct 45.4 (42.0-52.0) % MCV 88.2 (80.0-100.0) fL MCH 30.5 (25.0-34.0) pg MCHC 34.6 (32.0-36.0) g/dL RDW Std Deviation 41.7 (36.4-46.3) fL RDW Coeff of [place] 12.9 (11.5-14.5) % Plt Count 239 (130-400) K/uL MPV 9.4 (9.4-12.4) fL Immature Gran % (Auto) 0.2 % Neut % (Auto) 87.2 % Lymph % (Auto) 7.3 % [place] % (Auto) 5.0 % Eos % (Auto) 0.1 % Baso % (Auto) 0.2 % Neut # (Auto) 7.20 H (1.40-6.50) K/uL Lymph # (Auto) 0.60 L (1.2-3.4) K/uL [place] # (Auto) 0.41 (0.11-0.59) K/uL Eos # (Auto) 0.01 (0-0.50) K/uL Baso # (Auto) 0.02 (0-0.2) K/uL Immature Gran # (Auto) 0.02 (0.01-0.20) K/uL Sodium 140 (136-145) mmol/L Potassium 4.4 (3.5-5.1) mmol/L Chloride 105 (98-107) mmol/L Carbon Dioxide 26 (21-32) mmol/L Anion Gap 9 (3-11) BUN 27 H (6-23) mg/dl Creatinine 0.80 (0.6-1.4) mg/dl Est Cr Clr Drug Dosing 143.4 ml/min Est GFR ( Amer) 100.6 ml/min Est GFR (Non-Af Amer) 86.8 ml/min BUN/Creatinine Ratio 33.8 H (10-20) Glucose 108 H (70-99(Fasting)) mg/dl Calcium 9.9 (8.6-10.3) mg/dl Phosphorus 3.0 (2.5-4.9) mg/dl Magnesium 2.1 (1.7-2.4) mg/dl Total Bilirubin 1.0 (0.2-1.0) mg/dl AST 30 (13-39) U/L ALT 25 (7-52) U/L Alkaline Phosphatase 75 (34-104) U/L Total Creatine Kinase (30-223) U/L Total Protein 7.2 (6.0-8.3) gm/dl Albumin 4.2 (3.4-5.0) gm/dl Globulin 3.0 (2.5-4.0) gm/dl Albumin/Globulin Ratio 1.4 (0.9-2) Vitamin B12 (180-914) pg/ml 25-OH Vitamin D Total (30-100) ng/ml Folate (>5.38) ng/ml TSH (0.300-4.500) uIu/ml Urine Color Yellow Urine Appearance Clear (Clear) Urine pH 5.5 (4.5-7.5) Ur Specific [place] 1.025 (1.000-1.030) Urine Protein 1+ H (Negative) Urine Glucose (UA) Negative (Negative) Urine Ketones 2+ H (Negative) Urine Blood Negative (Negative) Urine Nitrite Negative (Negative) Urine Bilirubin Negative (Negative) Urine Urobilinogen Negative (Negative) Ur Leukocyte Esterase Negative (Negative) Urine WBC (Auto) 1-5 (0-5) /hpf Urine RBC (Auto) 0-4 (0-4) /hpf U Hyaline Cast (Auto) 0 (0-5) /lpf U Epithel Cells (Auto) 20-30 H (0-5) /lpf Urine Bacteria (Auto) Negative (Negative) Urine Crystals Not Reportable SARS-CoV-2, RNA, NAAT (NEGATIVE) Diagnostic Findings Knee X-Ray 05/29/22 00:04 XR knee LT 3V, XR knee RT 3V HISTORY: 76 years-old Male instability, pain chronic bilateral knee pain COMPARISON: None TECHNIQUE: 3 views of the bilateral knees FINDINGS: LEFT: Demineralized appearance of the bones. Trace joint effusion. Mild lateral with moderate patellofemoral and medial compartment osteoarthritis. No acute fracture, dislocation or osseous erosion. RIGHT: Demineralized appearance of the bones. Small joint effusion. Mild lateral with moderate patellofemoral and medial compartment osteoarthritis. No acute fracture, dislocation or osseous erosion. IMPRESSION: 1. No acute fracture or dislocation. 2. Osteoarthritis of the knees with right greater than left joint effusions. ACT 112: Negative or not required by law. The above report was generated using voice recognition software. It may contain grammatical, syntax or spelling errors. Electronically signed by: Lázaro Tay M.D. 05/29/2022 9:31 AM Lumbar Spine X-Ray 05/29/22 00:07 XR lumbar spine 2-3V HISTORY: 76 years-old Male leg weakness, h/o prostate cancer chronic low back pain with lower extremity weakness COMPARISON: CT abdomen pelvis 03/06/2016 TECHNIQUE: 3 views of the lumbar spine FINDINGS: Prior abdominal wall herniorrhaphy. 5 mm left renal calculus. Pelvic basin calcifications suggest phleboliths. Moderate to severe multilevel intervertebral disc space narrowing with severe facet arthrosis and moderate to advanced spondylitic spurring. No definite acute fracture, subluxation or endplate erosion identified. No osteoblastic skeletal lesions are seen. Severe left hip osteoarthritis. Mild age-indeterminate superior endplate compression at T12, L1 and L2 without retropulsion. IMPRESSION: 1. No acute fracture, subluxation or suspicious bone lesions identified. 2. Mild superior endplate compression at T12-L2 without retropulsion is age- indeterminate and likely chronic. 3. Moderate to advanced degenerative changes. 4. Left nephrolithiasis. ACT 112: Negative or not required by law. The above report was generated using voice recognition software. It may contain grammatical, syntax or spelling errors. Electronically signed by: Lázaro Tay M.D. 05/29/2022 9:34 AM Knee X-Ray 05/29/22 08:44 XR knee LT 3V, XR knee RT 3V HISTORY: 76 years-old Male instability, pain chronic bilateral knee pain COMPARISON: None TECHNIQUE: 3 views of the bilateral knees FINDINGS: LEFT: Demineralized appearance of the bones. Trace joint effusion. Mild lateral with moderate patellofemoral and medial compartment osteoarthritis. No acute fracture, dislocation or osseous erosion. RIGHT: Demineralized appearance of the bones. Small joint effusion. Mild lateral with moderate patellofemoral and medial compartment osteoarthritis. No acute fracture, dislocation or osseous erosion. IMPRESSION: 1. No acute fracture or dislocation. 2. Osteoarthritis of the knees with right greater than left joint effusions. ACT 112: Negative or not required by law. The above report was generated using voice recognition software. It may contain grammatical, syntax or spelling errors. Electronically signed by: Lázaro Tay M.D. 05/29/2022 9:31 AM PG Care Time/CCT Total # of Minutes Spent Total Time Spent with Patient: Total time spent is greater than 50% in coordination of care (as documented) at patient's floor/unit and/or counseling patient: Coding Level of Care Code 20955 SUB INP/OBS CARE 3/50MIN Diagnoses Weakness R53.1 Rhabdomyolysis M62.82 Arthritis M19.90 Acute dehydration E86.0 Elevated prostate specific antigen (PSA) R97.20 Alcohol use Z78.9 Fall W19.XXXA
--- NOTE | 2022-05-29 09:33 | XRay Report ---
XR knee LT 3V, XR knee RT 3V HISTORY: 76 years-old Male instability, pain chronic bilateral knee pain COMPARISON: None TECHNIQUE: 3 views of the bilateral knees FINDINGS: LEFT: Demineralized appearance of the bones. Trace joint effusion. Mild lateral with moderate patellofemora l and medial compartment osteoarthritis. No acute fracture, dislocation or osseous erosion. RIGHT: Demineralized appearance of the bones. Small joint effusion. Mild lateral with moderate patellofemora l and medial compartment osteoarthritis. No acute fracture, dislocation or osseous erosion. IMPRESSION: 1. No acute fracture or dislocation. 2. Osteoarthritis of the knees with right greater than left joint effusions. ACT 112: Negative or not required by law. The above report was generated using voice recognition software. It may contain grammatical, syntax o r spelling errors. Electronically signed by: Lázaro Tay M.D. 05/29/2022 9:31 AM
--- NOTE | 2022-05-29 09:36 | XRay Report ---
XR lumbar spine 2-3V HISTORY: 76 years-old Male leg weakness, h/o prostate cancer chronic low back pain with lower extrem ity weakness COMPARISON: CT abdomen pelvis 03/06/2016 TECHNIQUE: 3 views of the lumbar spine FINDINGS: Prior abdominal wall herniorrhaphy. 5 mm left renal calculus. Pelvic basin calcifications suggest phl eboliths. Moderate to severe multilevel intervertebral disc space narrowing with severe facet arthros is and moderate to advanced spondylitic spurring. No definite acute fracture, subluxation or endplate erosion identified. No osteoblastic skeletal lesions are seen. Severe left hip osteoarthritis. Mild age-indeterminate superior endplate compression at T12, L1 and L2 without retropulsion. IMPRESSION: 1. No acute fracture, subluxation or suspicious bone lesions identified. 2. Mild superior endplate compression at T12-L2 without retropulsion is age-indeterminate and likely chronic. 3. Moderate to advanced degenerative changes. 4. Left nephrolithiasis. ACT 112: Negative or not required by law. The above report was generated using voice recognition software. It may contain grammatical, syntax o r spelling errors. Electronically signed by: Lázaro Tay M.D. 05/29/2022 9:34 AM
[2022-05-29] MEDS ORDERED: ROPIVACAINE 0.5% PF 5 MG/ML 20 ML VIAL INFIL ONE (10:12)
[2022-05-29] MEDS ORDERED: TRIAMCINOLONE ACET 40 MG/ML VIAL INFIL ONE (10:13)
[2022-05-29 11:04] LABS: Uric Acid 4.7 mg/dl (2.6-7.2)
--- NOTE | 2022-05-29 11:09 | Consultation Report ---
ORTHOPEDIC CONSULTATION NOTE DATE OF CONSULTATION: 05/29/2022. CHIEF COMPLAINT: Bilateral leg weakness. HISTORY OF PRESENT ILLNESS: The patient who goes by , which is his middle name, has a medical history significant for prostate cancer, status post over 2 years of Lupron treatments. He is currently off Lupron, but has had a fair amount of weakness in his lower legs since being on Lupron. Yesterday, he was at home when he fell and felt like his right knee gave out. He felt very weak at that time. He was brought to the Emergency Room where he was evaluated and admitted to the internal medicine service. He denies any loss of consciousness or hitting his head. The patient reports that he has never seen Orthopedic Surgery before. However, he has been on a chronic regimen of taking Aleve twice a day as well as Tylenol once or twice a day for presumed diagnosis of arthritis in both knees and both hips. He used to be very active, running and biking until his prostate cancer diagnosis 10 years ago. He denies any numbness or tingling in his lower extremities. He does have some swelling in his legs. PAST MEDICAL HISTORY: 1. Prostate cancer, status post prostatectomy and Lupron treatments. 2. Nephrolithiasis. PAST SURGICAL HISTORY: Prostatectomy, hernia repair, lymph node biopsy, umbilical hernia repair. FAMILY HISTORY: Prostate cancer, diabetes and skin cancer. SOCIAL HISTORY: He lives with his . Denies tobacco use. He does use alcohol. PHYSICAL EXAMINATION: GENERAL: Pleasant male in no acute distress. He is overweight. EXTREMITIES: Bilateral knee exam reveals the patient to have some dry skin as well as some punctate red spots really noted throughout his lower extremities with some lymphedema, 2+ bilaterally. He has a 2+ knee effusion on the right and 1+ on the left. He is maximally tender to palpation on the medial joint line, more than the lateral joint line. Also mild medial and lateral patellar facet tenderness. His range of motion is limited on both sides from 0-95 degrees. He reports he gets pain in his hip when he tries to flex his knee up. He has some pseudolaxity to valgus testing on the right knee, less so on the left. Negative posterior drawer test. Negative Davida's test. Stable to varus testing bilaterally. He is distally neurovascularly intact with palpable dorsalis pedis and posterior tibial pulses. His skin exam does show a scab about 1 cm in diameter in the mid portion of the anteromedial tibia, where he reports he had a skin cancer lesion removed. RESULTS REVIEWED: X-rays, 3 views that were done of each knee late last night are reviewed. These show evidence of osteoarthritis in both knees with medial joint space narrowing, subchondral sclerosis. No fractures are visualized. IMPRESSION: Bilateral knee osteoarthritis and effusions, right worse than left, in the setting of lower extremity weakness, presumably from Lupron treatments. PLAN: I discussed the diagnosis with the patient. I told him that it would be uncommon for knee arthritis to cause weakness in the knees. However, it can cause pain that could put him at risk for the knee giving out. He is already on a reasonable medical management. He could consider prescription strength anti- inflammatories. Icing should be encouraged. Another option would be intraarticular corticosteroid injections. After reviewing the risks and benefits of corticosteroid injection, he elected to proceed. PROCEDURE NOTE: The skin overlying the superolateral aspect of the right knee was prepped with chlorhexidine and alcohol. Using sterile technique, a 22 gauge needle attached to a 10 cc syringe was inserted into the suprapatellar pouch. I aspirated some blood from the knee consistent with a hemearthrosis. I then injected the suprapatellar pouch with 9 mL of ropivacaine and 40 mg of triamcinolone. The patient tolerated this well. The exact same procedure was then performed on the left knee. Again, blood was aspirated consistent with a hemearthrosis. The patient also tolerated this procedure well. Finally, I ordered x-rays of his pelvis and bilateral hips given the discomfort he had on physical exam today and his reported history of hip arthritis. This will help us quantify how much of his pain might be coming from his hips. He can follow up with Orthopedics on an outpatient basis. Addendum: Hip x-rays showed severe hip osteoarthritis bilaterally. He is going to need hip replacements done, but will need to follow-up as an outpatient and demonstrate improvement in his strength, as he is a fall risk. Job ID: [id number] [facility]
[2022-05-29 11:30] LABS: Lyme Ab IgG w/WB Rflx Negative (Negative); Lyme Ab IgM w/WB Rflx Negative (Negative)
--- NOTE | 2022-05-29 12:12 | XRay Report ---
XR hip JELLY 2v w pelvis HISTORY: 76 years-old Male eval hip arthritis chronic bilateral hip pain COMPARISON: CT abdomen pelvis 03/06/2016 TECHNIQUE: AP view the pelvis with 2 views of the hips FINDINGS: Markedly severe osteoarthritis of the bilateral hips with chronic remodeling, femoral head flattening with prominent subcortical cysts, subchondral sclerosis and marginal osteophytosis. Similar findings compared to study from 2017. No acute fracture or subluxation identified. Ventral abdominal wall her niorrhaphy changes. Demineralized appearance the bones. IMPRESSION: 1. No acute fracture or dislocation identified. 2. Markedly severe osteoarthritis of the hips with chronic remodeling changes and right greater than left femoral head flattening. Findings appear similar to the 2017 comparison. ACT 112: Negative or not required by law. The above report was generated using voice recognition software. It may contain grammatical, syntax o r spelling errors. Electronically signed by: Lázaro Tay M.D. 05/29/2022 12:11 PM
[2022-05-29] MEDS: DICLOFENAC SOD 1% GEL 100 GM TUBE EXT SCH ×3 (13:59→20:14)
[2022-05-29] MEDS ORDERED: hydrALAZINE HCL 20 MG/ML VIAL IV PRN (17:56)
[2022-05-30 06:25] LABS: Hematocrit (blood only) 45.2 % (42.0-52.0); Hemoglobin 15.4 g/dl (14.0-18.0); Mean Corpuscular Hemoglobin 30.3 pg (25.0-34.0); Mean Corpuscular Hgb Conc 34.1 g/dL (32.0-36.0); Mean Platelet Volume 9.5 fL (9.4-12.4); Platelet Count 242 K/uL (130-400); RDW Coefficient of Variation 12.7 % (11.5-14.5); RDW Standard Deviation 41.2 fL (36.4-46.3); Red Blood Count 5.08 M/uL (4.70-6.10); White Blood Count 6.44 K/ul (4.8-10.8)
[2022-05-30 06:41] LABS: Albumin Globulin Ratio 1.5 (0.9-2); Albumin Level 4.1 gm/dl (3.4-5.0); BUN Creatinine Ratio 29.3 (10-20); Bilirubin,Total 1.2 mg/dl (0.2-1.0); Calcium 9.8 mg/dl (8.6-10.3); Creatinine Clr Calc Pharmacy 197.8 ml/min; Est GFR (African American) 114.8 ml/min; Globulin 2.8 gm/dl (2.5-4.0); Magnesium 1.8 mg/dl (1.7-2.4); Potassium 3.9 mmol/L (3.5-5.1); Total Protein 6.9 gm/dl (6.0-8.3)
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
[2022-05-30] MEDS ORDERED: SODIUM CHLORIDE 0.9% 1000ML 1,000 ML IV SCH (07:45)
[2022-05-30] MEDS: DICLOFENAC SOD 1% GEL 100 GM TUBE EXT SCH ×4 (07:46→20:50)
[2022-05-30] MEDS: THIAMINE HCL 100 MG TAB PO SCH ×2 (11:27→20:50)
[2022-05-30] MEDS: lisinopril 5 MG TAB PO SCH (11:27)
--- NOTE | 2022-05-30 11:40 | Orthopedic Progress Note ---
Date of Service May 30, 2022 Assessment & Plan (1) Arthritis: Plan: Patient doing well after bilateral knee cortisone injections. Continue working with PT for safe ambulation. Follow up as outpatient with Dr. Quiñonez. Admission and Anticipated Discharge Date Admission Date: May 28, 2022 Subjective Patient seen and examined sitting in chair in room. States his bilateral knee pain has significantly improved since his injections yesterday. Denies any swelling or redness from his injection sites. Denies any fevers. States he has b een up and ambulatory with PT. Physical Exam Physical Exam: GEN: NAD Bilateral LE: no erythema about injection sites at knee, nonpainful short arc range of motion while sitting Results & Data Vital Signs (Past 12 Hours) Vital Signs Temp Pulse Pulse Resp BP BP Pulse Ox 05/30/22 10:29 88 148/73 H 05/30/22 07:50 05/30/22 08:03 75 202/64 H 05/30/22 08:01 80 201/93 H 05/30/22 07:58 70 171/78 H 05/30/22 07:40 37.2 C 74 18 136/79 173/90 H 95 O2 Del Method 05/30/22 10:29 05/30/22 07:50 Room Air 05/30/22 08:03 05/30/22 08:01 05/30/22 07:58 05/30/22 07:40 Room Air
[2022-05-30] MEDS ORDERED: GADOBUTROL 65ML VIAL IV ONE (12:41)
[2022-05-30] MEDS: DOCUSATE SODIUM/SENNA 50/8.6MG TAB PO SCH (15:55)
[2022-05-30] MEDS: PSYLLIUM or GUAR GUM FIBER POWDER PACKET PO SCH (15:55)
--- NOTE | 2022-05-30 16:35 | Magnetic Resonance Report ---
MR lumbar spine wo/w con CLINICAL HISTORY: 76 years-old Male with LE weakness, hx prostate CA. Acute hypertension with lower extremity weakness and history of prostate cancer. Acute low back pain. COMPARISON: CT abdomen pelvis 03/06/2016 TECHNIQUE: Multiplanar, multi sequence MRI of the lumbar spine was performed without intravenous cont rast. FINDINGS: Mild levoscoliosis of the thoracolumbar junction. The study is motion degraded. 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 Conus medullaris terminates at T12-S1. Normal signal within the imaged thoracic spinal cord a nd cauda equina. There is no acute fracture, subluxation or endplate erosion. Moderate to severe inte rvertebral disc space narrowing and spondylitic spurring throughout the lumbar spine with severe face t arthrosis and ligamentum flavum thickening. No marrow replacing process or abnormal enhancement. T12-L1: The central canal and left neural foramen are patent. Mild right neural foraminal narrowing. L1-L2: Circumferential annular disc bulge with tiny posterior disc osteophyte complex. Ligamentum fl avum thickening with severe facet arthrosis. Mild central canal stenosis, AP dimension of the thecal sac measuring 9 mm. The right neural foramen is patent. Mild to moderate left neural foraminal narrow ing. L2-L3: Small posterior disc osteophyte complex. Ligamentum flavum thickening with severe facet arthr osis. Moderate central canal stenosis, AP dimension of the thecal sac measuring 6 mm. Mild right with mild to moderate left neural foraminal narrowing. L3-L4: Spondylitic spurring with small posterior disc osteophyte complex. Ligament of flavum thicken ing with severe facet arthrosis. Moderate central canal stenosis with AP dimension of the thecal sac measuring 7 mm. Moderate left with mild to moderate right neural foraminal narrowing. L4-L5: Spondylitic spurring with moderate sized posterior disc osteophyte complex. Moderate central canal stenosis with AP dimension of the thecal sac measuring 7 mm. Severe narrowing of the lateral re cesses. Severe right with moderate left neural foraminal stenosis. L5-S1: Central disc osteophyte complex measures 1.4 cm transversely. Ligament of flavum thickening w ith advanced facet arthrosis. Mild central canal stenosis, AP dimension of the thecal sac measuring 9 mm. There is at least moderate narrowing of the lateral recesses, right greater than left. Moderate right with mild left foraminal narrowing. IMPRESSION: 1. No acute fracture, abnormal enhancement or marrow replacing process. 2. Discogenic degeneration with ligamentum flavum thickening and facet arthrosis as above resulting i n multilevel central canal and neural foraminal stenosis. ACT 112: Negative or not required by law. The above report was generated using voice recognition software. It may contain grammatical, syntax o r spelling errors. Electronically signed by: Lázaro Tay M.D. 05/30/2022 4:33 PM
[2022-05-31 07:16] LABS: Albumin Level 4.3 gm/dl (3.4-5.0); BUN Creatinine Ratio 36.4 (10-20); Bilirubin Direct 0.2 mg/dl (0-0.2); Bilirubin,Total 1.1 mg/dl (0.2-1.0); Creatinine Clr Calc Pharmacy 125.1 ml/min; Est GFR (African American) 108.8 ml/min; Est GFR (Non-African American) 93.9 ml/min; Potassium 3.8 mmol/L (3.5-5.1); Total Protein 7.1 gm/dl (6.0-8.3)
[2022-05-31] MEDS: THIAMINE HCL 100 MG TAB PO SCH (07:56)
[2022-05-31] MEDS: DICLOFENAC SOD 1% GEL 100 GM TUBE EXT SCH ×3 (07:56→18:04)
[2022-05-31] MEDS: lisinopril 5 MG TAB PO SCH (07:57)
[2022-05-31] MEDS: PSYLLIUM or GUAR GUM FIBER POWDER PACKET PO SCH (07:57)
[2022-05-31] MEDS: DOCUSATE SODIUM/SENNA 50/8.6MG TAB PO SCH (07:57)
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
--- NOTE | 2022-05-31 13:02 | Orthopedic Consultation ---
Date of Consultation May 31, 2022 Assessment & Plan (1) Osteoarthritis of knees, bilateral: Assessment bilateral lower extremity weakness with known osteoarthritis of the knees. Plan at this time the MRI lumbar spine does demonstrate evidence of spinal stenosis to varying degrees that is age-appropriate. He denies any clear neurogenic claudicatory or radicular complaints upon interview. My concern would be any issues with cord compression of the thoracic spine. I would request an MRI thoracic spine pending these results should be safe to return home per orthopedics. History of Present Illness Reason for Consultation: Leg weakness Attending Physician: Jose Parmar DO History of Present Illness This is a 76-year-old male that presents with onset of significant bilateral lower extremity weakness. He does use canes typically to ambulate. He does try to remain very active and states that he works out daily. He was working on his car trying to return back into the home when his legs gave out and he noted significant weakness. He is been struggling with some significant arthritic changes in the knees and is responded to the injections given him a few days ago. He does feel more confident in his legs today. Allergies Allergy/AdvReac Type Severity Reaction Status Date / Time oxycodone Allergy Unknown unknown Verified 05/28/22 21:37 Home Medications Medication Instructions Recorded Confirmed Type acetaminophen 650 mg 650 mg PO TID 01/12/19 05/28/22 History tablet,extended release (Tylenol Arthritis Pain) naproxen sodium 220 mg capsule 220 mg PO BID 01/12/19 05/28/22 History (Aleve) calcium carbonate 600 mg calcium 600 mg PO 3XWK 05/28/22 05/28/22 History (1,500 mg) tablet (Calcium) cholecalciferol (vitamin D3) 25 25 mcg PO DAILY 05/28/22 05/28/22 History mcg (1,000 unit) capsule (Vitamin D3) garlic 1,000 mg capsule 1,000 mg PO DAILY 05/28/22 05/28/22 History magnesium 250 mg tablet 250 mg PO DAILY 05/28/22 05/28/22 History bagaegwrwmyk-xxa-jxsbx acid-vit 1 tab PO DAILY 05/28/22 05/28/22 History K-lycop 400 mcg-20 mcg-370 mcg tablet (Men's 50 Plus Multivitamin) turmeric (bulk) 95 % powder 1 ea miscellaneous DAILY 05/28/22 05/28/22 History (Curcumin) Patient History Medical History Prostate cancer Recurrent nephrolithiasis Surgical History History of hernia repair History of lymph node biopsy History of umbilical hernia repair Status post biopsy of skin Family History Father Prostate cancer Other Cancer Diabetes Skin cancer Social History Smoking Status: Never smoker Hx Alcohol Use: Yes Alcohol type: hard liquor Hx Substance Use: No Preferred Language: Albanian Communication Ability: Effective Barrel Header Required: No Beliefs That Will Affect Care: None marital status: Current Living Situation: Spouse current occupational status: retired Other Information That Helps Us Care for You: No Feels Safe at Home: Yes Safety Concerns: Feels Safe At This Time Assistive Devices: Crutches Physical Exam Physical Exam: On exam he is actually on medical therapy he is able to stand for me. He is leaning on his crutches. We talked for several minutes with him standing. He was able to do so without any complaints of weakness or need to sit down. Results & Data Vital Signs (Past 12 Hours) Vital Signs Temp Pulse Resp BP Pulse Ox O2 Del Method 05/31/22 08:00 Room Air 05/31/22 07:53 36.9 C 72 18 162/80 H 97 Room Air
--- NOTE | 2022-05-31 13:43 | Magnetic Resonance Report ---
MRI OF THE THORACIC SPINE WITHOUT CONTRAST CLINICAL HISTORY: Leg weakness. Multiple falls. COMPARISON: Thoracic spine MRI December 07, 2012. TECHNIQUE: Utilizing a 1.5 Clare magnet and dedicated coil, multiplanar, multiecho imaging of the th oracic spine was performed without IV contrast. FINDINGS: Alignment of the thoracic spine is anatomic. No acute thoracic spine fracture is present. T here is no suspicious marrow replacement. Mild loss of height of the superior endplates of T3 and T4 is unchanged since MRI of December 07, 2012. Thoracic cord signal and caliber are normal. There is no intracanalicular mass or fluid collection. Paravertebral soft tissues are unremarkable. Scattered T1 and T2 hyperintense foci represent hemangiomas. Multilevel moderate osteophytosis within the thoracic spine is noted. No disc herniation is are present. Central canal and neural foramen are patent. IMPRESSION: 1. No acute thoracic spine fracture. Normal thoracic cord signal and caliber. 2. No disc herniations. 3. Mild multilevel degenerative changes within the thoracic spine. 4. No change in mild loss of height of the superior endplates of T3 and T4 since previous MRI. ACT 112: Negative or not required by law. Electronically signed by: Jalil Moreno M.D. 05/31/2022 1:42 PM
--- NOTE | 2022-05-31 18:05 | Billing Data ---
Date of Service May 31, 2022 Coding Level of Care Code 78728 IN/OBS DISCH 30 MIN/LESS
== END 2022-05-31 18:07 | disposition home health service (06) | DRG 554 ==
LOC: 3E 17:32 → ED 17:32 → SUATTDRO 22:07 → 3E 23:55 → SUATTDRO 05-30 11:57

== ENCOUNTER 2024-07-27 21:47 | Inpatient (IN) ==
--- NOTE | 2024-07-27 22:11 | Emergency Department Note ---
Impression & Plan Weakness, Hypoxia, Pleural effusion ED Provider Note NAME: JUAN R PISANO AGE: 78 SEX: M : 1945 ARRIVES VIA: Ambulance INFORMANT: Patient, ED PROVIDER(S): Wilner Mahajan DO CHIEF COMPLAINT: Weakness HPI: The patient is a 78-year-old male who presented to the emergency department for weakness. The patient had a fall earlier today. He has a skin tear to his right elbow. The patient states that he was not able to get up and has had generalized weakness ever since. He denies having any chest pain or difficulty breathing. He was recently started on a blood thinner because of a DVT in his lower extremity. The patient was noted to have some degree of hypoxia prior to arrival. He was placed on supplemental oxygen. The patient denies having any new leg swelling. ROS: See above HPI for pertinent positives & negatives. A total of 10 systems reviewed and were otherwise negative. PAST MEDICAL HISTORY: See Below PAST SURGICAL HISTORY: See Below FAMILY HISTORY: See Below SOCIAL HISTORY: See Below HOME MEDICATIONS: See Below ALLERGIES: See Below VITALS: See Below PHYSICAL EXAMINATION: GENERAL: Patient is awake alert in no acute distress patient is resting comfortably and showing no signs of anxiety EYES: The conjunctivae are clear. The pupils are round and reactive. EARS, NOSE, MOUTH AND THROAT: The nose is without any evidence of any deformity. NECK: The neck is nontender and supple. RESPIRATORY: Normal respiratory effort is noted there is no evidence of wheezing rhonchi or rales CARDIOVASCULAR: Regular rate and rhythm noted there no murmurs rubs or gallops normal S1 normal S2. GASTROINTESTINAL: The abdomen is soft. Abdomen is nontender. MUSCULOSKELETAL/EXTREMITIES: There is no evidence of gross deformity full range of motion is noted in the hips and shoulders. SKIN: There is no obvious evidence of any rash. Pedal edema was noted bilaterally. Skin is warm and dry. There is a wound dressing on the right elbow. There is also a wound dressing in the right groin. No active bleeding was noted. NEUROLOGIC: Patient is awake alert and oriented x3. Strength was symmetric but diminished. MEDICAL DECISION MAKING: The patient is a 78-year-old male who presented to the emergency department for an evaluation of generalized weakness. The patient was in our facility recently. He was diagnosed with a DVT and started on blood thinners. He returns today because of generalized weakness. He did fall to the floor in a controlled manner but then could not stand. 911 was called and the patient arrived via ambulance. I discussed patient's laboratory and radiographic studies with him. Given his abnormal vital signs I discussed his condition with the on-call [facility] hospitalist. They have agreed to evaluate the patient in the emergency department for further management and disposition. Triage Nursing notes reviewed. Prior medical records reviewed Vital Signs: reviewed and remarkable for hypoxia. Differential diagnosis: Infection, dehydration, metabolic abnormality, hypo/hyperglycemia, electrolyte disturbance, anemia, hypoxia, cardiac sources, intracerebral event, toxicologic, neurologic, as well as other pathologies. ER treatment provided: See below Diagnostics interpreted by me: ECG: EKG was obtained in the emergency department. My interpretation is sinus rhythm at 87 bpm. First-degree AV block was noted. Right bundle branch block pattern was noted. This was compared to a tracing from July 23, 2024. No changes were noted. Cardiac Monitoring: An order was placed for continuous cardiac monitoring. The monitor shows a rate of 73 bpm with sinus rhythm. Laboratory studies: As stated above and show below. Imaging studies: See below. Radiographic imaging was reviewed by myself Consultation(s): I discussed this case with Dr. Singh who is on-call for the [facility] hospitalist group. Past Med/Surg History Problem List Pleural effusion (Acute) Hypoxia (Acute) Weakness (Acute) DVT of leg (deep venous thrombosis) History of hernia repair Fever (Acute) Generalized weakness (Acute) Infected prosthetic mesh of abdominal wall Hernia Rising PSA following treatment for malignant neoplasm of prostate Hypertension Neoplasm of adrenal gland Melanoma (09/23/12) Male stress incontinence Hematuria BPH with obstruction/lower urinary tract symptoms Hx of radiation therapy (Chronic) Lumbosacral spondylolysis (Chronic) Medical History Sepsis Alcohol use Osteoarthritis of knees, bilateral Osteoarthritis, hip, bilateral Prostate cancer Surgical History History of umbilical hernia repair Status post biopsy of skin History of lymph node biopsy Family History Father Prostate cancer Cancer Mother Cancer Other Diabetes Skin cancer Social History Smoking Status: Never smoker Hx Alcohol Use: No Hx Substance Use: No Preferred Language: Korean Communication Ability: Effective 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 Beliefs That Will Affect Care: None marital status: Current Living Situation: Spouse current occupational status: retired How many Children do You have: 0 Feels Safe at Home: Yes Diet: regular during the past year weight has: remained stable Assistive Devices: Cane Allergies Allergies Allergy/AdvReac Type Severity Reaction Status Date / Time oxycodone Allergy Unknown unknown Verified 07/23/24 17:35 suture Allergy "POLYDIOXANONE Verified 07/23/24 17:35 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 Home Meds Home Medications Medication Instructions Recorded Confirmed acetaminophen 650 mg 650 mg PO TID 01/12/19 07/28/24 tablet,extended release (Tylenol Arthritis Pain) calcium carbonate (Calcium 600) 600 mg PO 3XWK 05/28/22 07/28/24 cholecalciferol (vitamin D3) 25 25 mcg PO DAILY 05/28/22 07/28/24 mcg (1,000 unit) capsule (Vitamin D3) garlic 1,000 mg capsule 1,000 mg PO 3XWK 05/28/22 07/28/24 magnesium 250 mg tablet 250 mg PO DAILY 05/28/22 07/28/24 igwwtgnoxjgc-tty-cynft acid-vit 1 tab PO DAILY 05/28/22 07/28/24 K-lycop 400 mcg-20 mcg-370 mcg tablet (Men's 50 Plus Multivitamin) turmeric (bulk) 95 % powder 1 ea miscellaneous BID 05/28/22 07/28/24 (Curcumin) glucosamine sulf dipot 1 cap PO BID 07/07/24 07/28/24 chlr,msm,chond 550 mg-C 30 mg-michelle 1 mg capsule (Glucosamine Chondroitin) Previous Rx's Medication Instructions Recorded cefdinir 300 mg capsule 300 mg PO Q12H 20 days #40 caps 07/26/24 enoxaparin 100 mg/mL subcutaneous 100 mg subcut Q12H 30 days #60 mL 07/26/24 syringe metronidazole 500 mg tablet 500 mg PO Q8H 20 days #60 tabs 07/26/24 Results & Data (ED) Vital Signs Vital Signs - 24 hr 07/27/24 21:40 07/27/24 21:56 07/27/24 21:58 Temperature 36.5 C 36.9 C Temperature Source Oral Oral Pulse Rate 92 H 90 Pulse Rate [Apical] 83 Pulse Rhythm Regular Pulse Rhythm [Apical] Regular Pulse Strength Normal Pulse Strength [Apical] Normal Respiratory Rate 17 18 Respiratory Effort / Characteristics Non-Labored Non-Labored Respiratory Depth Normal Normal Respiratory Pattern Regular Regular Blood Pressure 124/75 Blood Pressure [Right Arm] 124/75 Blood Pressure Mean 91 Blood Pressure Mean [Right Arm] 91 Blood Pressure Position Lying Blood Pressure Position [Right Arm] Lying Pulse Oximetry 97 93 Oxygen Delivery Method Room Air Nasal Cannula Oxygen Flow Rate 2 Sepsis Recent Fever Within 48 Hours No Sepsis New/Unexplained Change in Mental Status No Sepsis Action Taken by Nursing No Action Required 07/27/24 22:07 07/27/24 22:40 07/27/24 23:00 Temperature Temperature Source Pulse Rate 83 Pulse Rate [Apical] 80 78 Pulse Rhythm Regular Pulse Rhythm [Apical] Regular Regular Pulse Strength Pulse Strength [Apical] Normal Normal Respiratory Rate 18 17 17 Respiratory Effort / Characteristics Non-Labored Non-Labored Respiratory Depth Normal Normal Respiratory Pattern Regular Regular Blood Pressure Blood Pressure [Right Arm] 127/61 126/74 Blood Pressure Mean Blood Pressure Mean [Right Arm] 83 91 Blood Pressure Position Blood Pressure Position [Right Arm] Lying Lying Pulse Oximetry 93 94 94 Oxygen Delivery Method Nasal Cannula Nasal Cannula Nasal Cannula Oxygen Flow Rate 2 2 2 Sepsis Recent Fever Within 48 Hours Sepsis New/Unexplained Change in Mental Status Sepsis Action Taken by Nursing 07/28/24 00:00 Temperature Temperature Source Pulse Rate Pulse Rate [Apical] 73 Pulse Rhythm Pulse Rhythm [Apical] Regular Pulse Strength Pulse Strength [Apical] Normal Respiratory Rate 16 Respiratory Effort / Characteristics Non-Labored Respiratory Depth Normal Respiratory Pattern Regular Blood Pressure Blood Pressure [Right Arm] 138/69 Blood Pressure Mean Blood Pressure Mean [Right Arm] 92 Blood Pressure Position Blood Pressure Position [Right Arm] Pulse Oximetry 95 Oxygen Delivery Method Nasal Cannula Oxygen Flow Rate 3 Sepsis Recent Fever Within 48 Hours Sepsis New/Unexplained Change in Mental Status Sepsis Action Taken by [facility] Medications Current Medication List: was personally reviewed by me Laboratory Data Attestation: I reviewed the patient's lab results. 07/27/24 21:55 07/27/24 21:55 Lab Results 07/27/24 07/27/24 Range/Units 21:55 22:00 WBC 5.17 (4.8-10.8) K/ul RBC 4.28 L (4.70-6.10) M/uL Hgb 11.6 L (14.0-18.0) g/dl POC Hgb 11.9 L (14.0-18.0) g/dl Hct 35.9 L (42.0-52.0) % POC Hct 35 L (42-52) % MCV 83.9 (80.0-100.0) fL MCH 27.1 (25.0-34.0) pg MCHC 32.3 (32.0-36.0) g/dL RDW Std Deviation 49.5 H (36.4-46.3) fL RDW Coeff of Alonso 16.1 H (11.5-14.5) % Plt Count 259 (130-400) K/uL MPV 9.4 (9.4-12.4) fL Immature Gran % (Auto) 1.0 % Neut % (Auto) 80.9 % Lymph % (Auto) 9.7 % Tift % (Auto) 7.4 % Eos % (Auto) 0.4 % Baso % (Auto) 0.6 % Neut # (Auto) 4.19 (1.40-6.50) K/uL Lymph # (Auto) 0.50 L (1.20-3.40) K/uL Tift # (Auto) 0.38 (0.11-0.59) K/uL Eos # (Auto) 0.02 (0.00-0.50) K/uL Baso # (Auto) 0.03 (0.00-0.20) K/uL Immature Gran # (Auto) 0.05 (0.01-0.20) K/uL PT 12.7 H (9.0-12.0) Seconds INR 1.2 H (0.9-1.1) APTT 32 H (21-31) Seconds PTT Ratio 1.2 POC Sodium 135 (135-144) mmol/L Sodium 134 L (136-145) mmol/L POC Potassium 3.7 (3.3-5.0) mmol/L Potassium 3.8 (3.5-5.1) mmol/L POC Chloride 100 L (101-112) mmol/L Chloride 103 (98-107) mmol/L Carbon Dioxide 25 (21-32) mmol/L POC Total CO2 24 (24-31) mmol/L Anion Gap 6 (3-11) POC Anion Gap 16.0 (16-25) mmol/L POC BUN 14 (7-18) mg/dl BUN 15 (6-23) mg/dl Creatinine 0.85 (0.6-1.4) mg/dl POC Creatinine 0.9 (0.6-1.3) mg/dl Est Cr Clr Drug Dosing 89.8 ml/min eGFR 88.94 BUN/Creatinine Ratio 17.6 (10-20) Glucose 116 H (70-99(Fasting)) mg/dl POC Glucose (other) 119 H (70-99) mg/dl Calcium 8.7 (8.6-10.3) mg/dl POC Ioniz Calcium Alona 1.10 L (1.12-1.32) mmol/l Magnesium 1.8 (1.7-2.4) mg/dl Total Bilirubin 0.8 (0.2-1.0) mg/dl AST 16 (13-39) U/L ALT 15 (7-52) U/L Alkaline Phosphatase 63 (34-104) U/L Total Creatine Kinase 21 L (30-223) U/L Troponin I High Sens 11.8 (0-20) pg/ml Total Protein 6.0 (6.0-8.3) gm/dl Albumin 3.1 L (3.4-5.0) gm/dl Globulin 2.9 (2.5-4.0) gm/dl Albumin/Globulin Ratio 1.1 (0.9-2) TSH 1.160 (0.300-4.500) uIu/ml Imaging Data Attestation: I personally reviewed and interpreted this imaging study as follows: My Impression: 1 view chest x-ray was obtained in the emergency department. My interpretation is cardiomegaly with left-sided pleural effusion, final report pending. Discharge Plan Visit Data Chief Complaint: Fall Stated Complaint: GLF ED Provider: Wilner Mahajan Discharge Problem: Weakness, Hypoxia, Pleural effusion Patient Disposition: Being Evaluated by Hospitalist Condition: Fair Forms Stand Alone Forms: My [facility] Prescriptions Prescriptions: No Action acetaminophen [Tylenol Arthritis Pain] 650 mg tablet extended release 650 mg PO TID garlic 1,000 mg Capsule 1,000 mg PO 3XWK Rx Instructions: mon, wed, fri calcium carbonate [Calcium 600] 600 mg calcium (1,500 mg) Tablet 600 mg PO 3XWK Rx Instructions: MON, WED, & FRI. magnesium 250 mg Tablet 250 mg PO DAILY cholecalciferol (vitamin D3) [Vitamin D3] 25 mcg (1,000 unit) Capsule 25 mcg PO DAILY Curcumin 95 % Powder 1 ea miscellaneous BID Rx Instructions: STRENGTH--750 MG TABLET DAILY Men's 50 Plus Multivitamin 400-20-370 mcg Tablet 1 tab PO DAILY enoxaparin 100 mg/mL Syringe 100 mg subcut Q12H 30 Days Qty: 60 2RF cefdinir 300 mg capsule 300 mg PO Q12H 20 Days Qty: 40 2RF Rx Instructions: you have already received antibiotics this morning, so you may just take your evening dose of cefdinir this evening. Then tomorrow 07/27 and thereafter, until your surgical procedure, please take in AM and PM roughly 12hrs apart. metronidazole 500 mg Tablet 500 mg PO Q8H 20 Days Qty: 60 2RF Rx Instructions: Continue taking as prescribed until you undergo your surgical procedure. Glucosamine Chondroitin 550-30-1 mg Capsule 1 cap PO BID Referrals Referrals: Sue Kat DO [Primary Care Provider] -
[2024-07-27 22:12] LABS: iSTAT Creatinine 0.9 mg/dl (0.6-1.3); iSTAT Hemoglobin 11.9 g/dl (14.0-18.0); iSTAT Ionized Calcium 1.1 mmol/l (1.12-1.32); iSTAT Potassium 3.7 mmol/L (3.3-5.0)
[2024-07-27 22:33] LABS: INR 1.2 (0.9-1.1); Partial Thromboplastin Ratio 1.2; Partial Thromboplastin Time 32 Seconds (21-31); Prothrombin Time 12.7 Seconds (9.0-12.0)
[2024-07-27 22:39] LABS: Albumin Globulin Ratio 1.1 (0.9-2); Albumin Level 3.1 gm/dl (3.4-5.0); BUN Creatinine Ratio 17.6 (10-20); Bilirubin,Total 0.8 mg/dl (0.2-1.0); Calcium 8.7 mg/dl (8.6-10.3); Creatinine Clr Calc Pharmacy 89.8 ml/min; Globulin 2.9 gm/dl (2.5-4.0); Magnesium 1.8 mg/dl (1.7-2.4); Potassium 3.8 mmol/L (3.5-5.1)
[2024-07-27 22:45] LABS: Troponin I High Sensitivity 11.8 pg/ml (0-20)
[2024-07-27 22:47] LABS: Basophils # (auto) 0.03 K/uL (0.00-0.20); Basophils % (auto) 0.6 %; Eosinophils # (auto) 0.02 K/uL (0.00-0.50); Eosinophils % (auto) 0.4 %; Hematocrit (blood only) 35.9 % (42.0-52.0); Hemoglobin 11.6 g/dl (14.0-18.0); Immature Granulocytes # (auto) 0.05 K/uL (0.01-0.20); Lymphocytes % (auto) 9.7 %; Mean Corpuscular Hemoglobin 27.1 pg (25.0-34.0); Mean Corpuscular Hgb Conc 32.3 g/dL (32.0-36.0); Mean Corpuscular Volume 83.9 fL (80.0-100.0); Mean Platelet Volume 9.4 fL (9.4-12.4); Monocytes # (auto) 0.38 K/uL (0.11-0.59); Monocytes % (auto) 7.4 %; Neutrophils # (auto) 4.19 K/uL (1.40-6.50); Neutrophils % (auto) 80.9 %; Platelet Count 259 K/uL (130-400); RDW Coefficient of Variation 16.1 % (11.5-14.5); RDW Standard Deviation 49.5 fL (36.4-46.3); Red Blood Count 4.28 M/uL (4.70-6.10); White Blood Count 5.17 K/ul (4.8-10.8)
[2024-07-27 22:55] LABS: Thyroid Stimulating Hormone 1.16 uIu/ml (0.300-4.500)
--- NOTE | 2024-07-28 00:52 | History & Physical Report ---
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 ED evaluation reveals no leukocytosis, H&H 11.6/35.9; PT/INR 12.7/1.3, APTT 32; CMP sodium 134, glucose 116, CK21, albumin 3.1; CXR pending official read; EKG sinus rhythm with first- degree AV block, LAD, RBBB at 87 bpm. #Hypoxia/Effusion/?PNA Noted to have been hypoxic during last hospital course, no O2 at baseline. His BioFire was negative at that time, no new infectious symptoms from previous. Did have recent DVT, treated with therapeutic Lovenox. - CBC without leukocytosis; Did have fever of 102 day of arrival, and nonproductive cough since July 07 - CXR LLL consolidation - CTA chest without evidence of PE, shows multiple linear atelectatic bands in bilateral basal segment and lingula, cardiomegaly - O2 prn for O2 < 94% - wean as patient tolerates - Incentive spirometry - Continuous pulse ox monitoring - History suspicious for infection/PNA - Coverage with Zosyn IV + Doxy po to cover for PNA + abdominal source #Ambulatory dysfunction/weakness Patient ambulatory dysfunction, with recent hospital discharge 07/26/2024. 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 Treated with antibiotics during last day. PT/OT was consulted at that time. - CBC without leukocytosis, H&H 11.6/35.9; CMP rather unremarkable sodium 134, glucose 116 - Fall precautions - PT/OT ordered - appreciate assistance Dispo: Admit, med/tele VTE Prophylaxis: Continue home enoxaparin injections This document was dictated utilizing [employer]. Please excuse any grammatical errors that may be secondary to use of this software. 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 Patient presenting today for ongoing symptoms of weakness, stating that the day of arrival he was trying to get to the bed when he started to have bilateral leg weakness, causing him to lose his balance. states that she tried to push him forward up to the bed so he would not fall, but instead he fell backwards and laid on his belly for approximately 20 minutes. He was unable to get himself up without assistance. He did not have any symptoms prior to to include chest pain, SOB, dizziness, lightheadedness, or feeling that he may pass out. He has been continuing to feel weak since his most recent hospital admission. Continues to have cough, nonproductive which has been ongoing since July 07. No abdominal pain, however he is still dressing the area that was recently repaired. His does state that he had a fever of 102 F day of arrival, which she provided him with Tylenol for and states that it had decree since then. Since his prostatectomy, he does have low-grade fevers at times, but no LUTS currently. At present, patient states that he is fatigued and tired of feeling weak. States that he is continuing to progress in his weakness since his initial admission to the hospital. He is concerned of when he will be able to have his abdominal surgery given his recent clot. Will schedule for 07/26/2024, currently on scheduled. Currently denying chest pain, SOB, palpitations, N/V/D/C, no/tingling, LUTS, chills, URI symptoms, or recent sick contacts. He does not feel as though he may pass out. ED evaluation reveals no leukocytosis, H&H 11.6/35.9; PT/INR 12.7/1.3, APTT 32; CMP sodium 134, glucose 116, CK21, albumin 3.1; CXR pending official read; EKG sinus rhythm with first-degree AV block, LAD, RBBB at [address] Singh's attestation for adjustments/additions to treatment plan. Allergies Allergy/AdvReac Type Severity Reaction Status Date / Time oxycodone Allergy Unknown unknown Verified 07/23/24 17:35 suture Allergy "POLYDIOXANONE Verified 07/23/24 17:35 INTERNAL STITCH"--endorsement clerk told to avoid Home Medications Medication Instructions Recorded Confirmed Type acetaminophen 650 mg 650 mg PO TID 01/12/19 07/28/24 History tablet,extended release (Tylenol Arthritis Pain) calcium carbonate (Calcium 600) 600 mg PO 3XWK 05/28/22 07/28/24 History cholecalciferol (vitamin D3) 25 25 mcg PO DAILY 05/28/22 07/28/24 History mcg (1,000 unit) capsule (Vitamin D3) garlic 1,000 mg capsule 1,000 mg PO 3XWK 05/28/22 07/28/24 History magnesium 250 mg tablet 250 mg PO DAILY 05/28/22 07/28/24 History phfdyxlaokxr-dzd-nwybk acid-vit 1 tab PO DAILY 05/28/22 07/28/24 History K-lycop 400 mcg-20 mcg-370 mcg tablet (Men's 50 Plus Multivitamin) turmeric (bulk) 95 % powder 1 ea miscellaneous BID 05/28/22 07/28/24 History (Curcumin) glucosamine sulf dipot 1 cap PO BID 07/07/24 07/28/24 History chlr,msm,chond 550 mg-C 30 mg-michelle 1 mg capsule (Glucosamine Chondroitin) cefdinir 300 mg capsule 300 mg PO Q12H 20 days #40 caps 07/26/24 07/28/24 Rx enoxaparin 100 mg/mL subcutaneous 100 mg subcut Q12H 30 days #60 mL 07/26/24 07/28/24 Rx syringe metronidazole 500 mg tablet 500 mg PO Q8H 20 days #60 tabs 07/26/24 07/28/24 Rx Past Med/Surg History Problem List Pleural effusion (Acute) Hypoxia (Acute) Weakness (Acute) DVT of leg (deep venous thrombosis) History of hernia repair Fever (Acute) Generalized weakness (Acute) Infected prosthetic mesh of abdominal wall Hernia Rising PSA following treatment for malignant neoplasm of prostate Hypertension Neoplasm of adrenal gland Melanoma (09/23/12) Male stress incontinence Hematuria BPH with obstruction/lower urinary tract symptoms Hx of radiation therapy (Chronic) Lumbosacral spondylolysis (Chronic) Medical History Sepsis Alcohol use Osteoarthritis of knees, bilateral Osteoarthritis, hip, bilateral Prostate cancer Surgical History History of umbilical hernia repair Status post biopsy of skin History of lymph node biopsy Family History Father Prostate cancer Cancer Mother Cancer Other Diabetes Skin cancer Social History Smoking Status: Never smoker Hx Alcohol Use: No Hx Substance Use: No Preferred Language: Somali Communication Ability: Effective Pharmacy Technician Infusion Required: No Beliefs That Will Affect Care: None marital status: Current Living Situation: Parent current occupational status: retired How many Children do You have: 0 Other Information That Helps Us Care for You: No Feels Safe at Home: Yes Safety Concerns: Feels Safe At This Time Diet: regular during the past year weight has: remained stable Assistive Devices: Oxygen - Continuous, Walker and Wheelchair Review of Systems Review of Systems: All systems reviewed & are unremarkable except as noted in Subjective Physical Exam Physical Exam: General: No acute distress, appears fatigued Skin: Warm and dry Head: Normocephalic, atraumatic Eyes: PERRL, conjunctivae clear, sclera non-icteric ENT: External ear and ear canal without swelling; nose atraumatic; good dentition, tongue normal appearance, pharynx normal Neck: Supple, no LAD Cardio: RRR, no M/G/R, S1 and S2 normal Resp: Wearing O2 via NC; No respiratory distress, Lungs CTA in all lobes bilaterally, no wheezes, rales, or rhonchi; O2 via NC Abdomen: Soft, symmetric, nontender; No masses or hepatosplenomegaly; Bowel sounds normoactive; RLQ with dressing in place over wound MSK: No deformities; pulses palpable and equal; trace pitting edema BLE. Neuro: Awake, alert; Sensation intact bilaterally; CN grossly intact Psych: Appropriate mood and affect; good judgement and insight. is present in room at time of visit. Results & Data Results & Data Vital Signs (Past 12 Hours) Vital Signs Temp Pulse Pulse Resp BP BP Pulse Ox 07/28/24 00:00 73 16 138/69 95 07/27/24 23:00 78 17 126/74 94 07/27/24 22:40 80 17 127/61 94 07/27/24 22:07 83 18 93 07/27/24 21:58 90 07/27/24 21:56 36.9 C 92 H 18 124/75 93 07/27/24 21:40 36.5 C 83 17 124/75 97 O2 Del Method O2 Flow Rate 07/28/24 00:00 Nasal Cannula 3 07/27/24 23:00 Nasal Cannula 2 07/27/24 22:40 Nasal Cannula 2 07/27/24 22:07 Nasal Cannula 2 07/27/24 21:58 07/27/24 21:56 Nasal Cannula 2 07/27/24 21:40 Room Air Laboratory Results 07/27/24 07/27/24 22:00 21:55 WBC 5.17 RBC 4.28 L Hgb 11.6 L POC Hgb 11.9 L Hct 35.9 L POC Hct 35 L MCV 83.9 MCH 27.1 MCHC 32.3 RDW Std Deviation 49.5 H RDW Coeff of Alonso 16.1 H Plt Count 259 MPV 9.4 Immature Gran % (Auto) 1.0 Neut % (Auto) 80.9 Lymph % (Auto) 9.7 [place] % (Auto) 7.4 Eos % (Auto) 0.4 Baso % (Auto) 0.6 Neut # (Auto) 4.19 Lymph # (Auto) 0.50 L [place] # (Auto) 0.38 Eos # (Auto) 0.02 Baso # (Auto) 0.03 Immature Gran # (Auto) 0.05 PT 12.7 H INR 1.2 H APTT 32 H PTT Ratio 1.2 POC Sodium 135 Sodium 134 L POC Potassium 3.7 Potassium 3.8 POC Chloride 100 L Chloride 103 Carbon Dioxide 25 POC Total CO2 24 Anion Gap 6 POC Anion Gap 16.0 POC BUN 14 BUN 15 Creatinine 0.85 POC Creatinine 0.9 Est Cr Clr Drug Dosing 89.8 eGFR 88.94 BUN/Creatinine Ratio 17.6 Glucose 116 H POC Glucose (other) 119 H Calcium 8.7 POC Ioniz Calcium Alona 1.10 L Magnesium 1.8 Total Bilirubin 0.8 AST 16 ALT 15 Alkaline Phosphatase 63 Total Creatine Kinase 21 L Troponin I High Sens 11.8 Total Protein 6.0 Albumin 3.1 L Globulin 2.9 Albumin/Globulin Ratio 1.1 TSH 1.160 Diagnostic Findings Chest X-Ray 07/27/24 22:07 CR Exam(s): XR CXR 1 VIEW EXAM: XR Chest, 1 View CLINICAL HISTORY: Reason for exam: weakness. TECHNIQUE: Frontal view of the chest. COMPARISON: Prior chest x-ray from July 23, 2024. FINDINGS: Lungs: Right lower lobe patchy opacity obscuring the cardiac silhouette and left hemidiaphragm. Mild to moderate bronchial thickening of the central lower lobe bronchi. Pleural space: Unremarkable. No pneumothorax. Heart: Unremarkable. No cardiomegaly. Mediastinum: Unremarkable. Normal mediastinal contour. Bones/joints: Unremarkable. No acute fracture. IMPRESSION: Right lower lobe consolidation. Communications: Verify Receipt Electronically signed by: Kellee Sylvester MD 07/28/24 01:30 AM ECG Additional Comments: Sinus rhythm with first degree AV block, LAD, RBBB 87 bpm, WA 260, QRS 132, QT/QTc 440/529, PRT 20/-33/4 Code Status & VTE Plan Code Status DNR/DNI Supervising Physician Co-Signing Physician Notes Attending Attestation & Admit Note: Pt seen/examined, chart reviewed, admit care plan d/w JOE Crow. I agree w/ the gray components of her admit documentation. 78yo male with 2 recent hospitalizations (07/07 to 07/11; 07/23 to 07/26) -- 1st admit was due to sepsis from his R groin abscess/cutaneous fistula. Cultures from his right groin wound grew Prevotella bivia. 2nd admit presented with significant weakness. Was continued on antibiotics for his right groin abscess/wound. He was also dx with a right-sided popliteal vein DVT and placed on lovenox injections. Attempts were made to have patient transferred to [facility] to have surgical intervention of the right groin abscess/fistula but it was declined due to the newly found DVT. Patient presents again with weakness and a fall. Since the fall he has had acute/chronic low back pain. He also has been coughing, and is requiring NC O2. He is frustrated with the # of times he has been hospitalized as of late. PMH/PSH/allergies/meds/sochx - reviewed VSS, afebrile gen - lying in bed, with movement he c/o low back pain; otherwise awake/alert mouth - MMM neck - no JVD heart - RRR, s1 s2 lungs - decreased BS bases, occasional rale bases, no increased work of breathin back - tender to palpation over lower lumbar spine segments abd - soft NT BS+ ext - pulses b/l feet 2+ skin - wound with ulceration in the right groin with purulent discharge; dressing in place over this wound/fistula labs reviewed imaging reviewed A/P: 1. ongoing weakness - likely multifactorial - deconditioning, ?pneumonia, ongoing infection of his right groin/fistula tract, etc. -zosyn - will cover lungs and the right groin wound -doxy - atypical coverage for the lungs 2. question of pneumonia, LLL - zosyn/doxy 3. lumbar back pain - acute/chronic, acute pain due to fall; check lumbar spine CT, r/o fracture 4. recent RLE DVT - cont lovenox 5. right groin abscess/cutaneous fistula - abx, local wound care, etc. ultimately needs definitive surgical intervention at [facility] (Dr Chelo Li). timing of surgery is uncertain. Ralf Singh MD PG Care Time/CCT Total # of Minutes Spent Total Time Spent with Patient: Total time spent is greater than 50% in coordination of care (as documented) at patient's floor/unit and/or counseling patient: Coding Level of Care Code 53534 INT INP/OBS CARE 3/75MIN Diagnoses Hypoxia R09.02 Pleural effusion J90 Weakness R53.1
--- NOTE | 2024-07-28 01:31 | XRay Report ---
Exam(s): XR CXR 1 VIEW EXAM: XR Chest, 1 View CLINICAL HISTORY: Reason for exam: weakness. TECHNIQUE: Frontal view of the chest. COMPARISON: Prior chest x-ray from July 23, 2024. FINDINGS: Lungs: Right lower lobe patchy opacity obscuring the cardiac silhouette and left hemidiaphragm. Mild to moderate bronchial thickening of the central lower lobe bronchi. Pleural space: Unremarkable. No pneumothorax. Heart: Unremarkable. No cardiomegaly. Mediastinum: Unremarkable. Normal mediastinal contour. Bones/joints: Unremarkable. No acute fracture. IMPRESSION: Right lower lobe consolidation. Communications: Verify Receipt Electronically signed by: Kellee Sylvester MD 07/28/24 01:30 AM
[2024-07-28] MEDS: OPTIRAY 320 125ml IV ONE (01:42)
[2024-07-28] MEDS ORDERED: ONDANSETRON INJ 2 MG/ML 2 ML VIAL IV PRN (02:38)
[2024-07-28] MEDS ORDERED: ACETAMINOPHEN 325 MG TAB PO PRN (02:38)
[2024-07-28] MEDS ORDERED: POLYETHYLENE (MIRALAX) 17 GM PACK PO PRN (02:38)
--- NOTE | 2024-07-28 03:45 | CT Scan Report ---
EXAM: CT angio chest PE protocol CLINICAL HISTORY: R/o PE;br Subsequent TECHNIQUE: Contiguous axial images were obtained from the neck base through the upper abdomen following intravenous administration of iodinated contrast material. Angiographic images were processed, 3D MIP images were acquired for interpretation. If IV contrast material had not been administered, the likelihood of detecting abnormalities relevant to the patient's condition would have been substantially decreased. Coronal and sagittal 3-D MIPs were likewise performed and indicated to increase the sensitivity of detectin diffuse clinically relevant pathology. CT scan was performed according to ALARA (as low as reasonable achievable). COMPARISON: None. FINDINGS: Multiple linear atelectatic bands are noted involving bilateral basal segment and lingula. Cardiomegaly noted. Adequate contrast bolus without evidence of pulmonary embolism. The central airways are patent. No pleural effusion. The aorta, and pulmonary arteries are of normal size and configuration. There are no appreciable coronary artery and aortic atherosclerotic calcifications. No pericardial effusion is identified. The thyroid is unremarkable. No mediastinal, hilar, or axillary lymphadenopathy is noted. No suspicious lytic or sclerotic osseous lesions are identified. IMPRESSION: 1. No evidence of pulmonary embolism 2. Multiple linear atelectatic bands are noted involving bilateral basal segment and lingula. 3. Cardiomegaly noted. Electronically signed by Mehran Alba 07-28-2024 03:45 AM
[2024-07-28] MEDS: ENOXAPARIN 100 MG/1ML SYR SQ SCH (04:45)
[2024-07-28] MEDS: 4.5GM X1 IV STA (04:45)
[2024-07-28 06:20] LABS: Hematocrit (blood only) 34.2 % (42.0-52.0); Hemoglobin 11.1 g/dl (14.0-18.0); Mean Corpuscular Hemoglobin 27.6 pg (25.0-34.0); Mean Corpuscular Hgb Conc 32.5 g/dL (32.0-36.0); Mean Corpuscular Volume 85.1 fL (80.0-100.0); Mean Platelet Volume 9.5 fL (9.4-12.4); Platelet Count 227 K/uL (130-400); RDW Coefficient of Variation 16.2 % (11.5-14.5); RDW Standard Deviation 50.4 fL (36.4-46.3); Red Blood Count 4.02 M/uL (4.70-6.10); White Blood Count 4.14 K/ul (4.8-10.8)
[2024-07-28 06:37] LABS: BUN Creatinine Ratio 15.5 (10-20); Calcium 8.7 mg/dl (8.6-10.3); Creatinine Clr Calc Pharmacy 105.3 ml/min; Potassium 3.4 mmol/L (3.5-5.1)
[2024-07-28] MEDS: PIPERACILLIN/TAZOBACTAM 4.5 GM/100 ML BAG IV SCH (08:43)
[2024-07-28] MEDS: DOXYCYCLINE HYCLATE 100 MG CAP PO SCH (08:43)
[2024-07-28] MEDS: ACETAMINOPHEN 325 MG TAB PO SCH (08:43)
--- NOTE | 2024-07-28 10:18 | CT Scan Report ---
CT lumbar spine wo con CLINICAL HISTORY: fall, severe lumbar back pain; compression Fx? COMPARISON STUDY: 05/30/2022 FINDINGS: Stable minimal scoliosis. There is osteopenia. There is grossly stable severe diffuse degen erative disc disease and moderate lower lumbar facet degeneration. No fracture or subluxation. There is moderate right neural foraminal narrowing at L4-5 and L5-S1 and mild left neural foraminal narrowi ng at those levels. There is mild central canal narrowing at L2-3, at least moderate central canal na rrowing at L3-4, at least mild central canal narrowing at L4-5. IMPRESSION: 1. No lumbar spine fracture seen. 2. Degenerative changes. ACT 112: Negative or not required by law. Electronically signed by: Herbert Simons M.D. 07/28/2024 10:16 AM
--- NOTE | 2024-07-28 13:20 | Hospitalist Progress Note ---
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 ED evaluation reveals no leukocytosis, H&H 11.6/35.9; PT/INR 12.7/1.3, APTT 32; CMP sodium 134, glucose 116, CK21, albumin 3.1; CXR pending official read; EKG sinus rhythm with first- degree AV block, LAD, RBBB at 87 bpm. #Hypoxia/Effusion/PNA/Right groin abscess Noted to have been hypoxic during last hospital course, no O2 at baseline. His BioFire was negative at that time, no new infectious symptoms from previous. Did have recent DVT, treated with therapeutic Lovenox. - CBC without leukocytosis; Did have fever of 102 day of arrival, and nonproductive cough since July 07 - CXR LLL consolidation - CTA chest without evidence of PE, shows multiple linear atelectatic bands in bilateral basal segment and lingula, cardiomegaly, no evidence of pneumonia - No SOB currently, wean off O2; goal O2 >90% - Coverage with Zosyn IV for likely poly-microbial related groin abscess - Patient will require transfer for surgical intervention of groin abscess at [facility] and potential IVC filter placement vs clot stabilization prior to surgery #Ambulatory dysfunction/weakness/Hx of R. popliteal DVT Patient ambulatory dysfunction, with recent hospital discharge 07/26/2024 for acute DVT. 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 Treated with antibiotics during last day. PT/OT was consulted at that time. - CBC without leukocytosis, H&H 11.6/35.9; CMP rather unremarkable sodium 134, glucose 116 - Fall precautions - PT/OT ordered - appreciate assistance - Continue Lovenox 1mg/kg q12H SQ BID, medication can be held for a dose prior to procedure and then should be continued for approximately 3 months post- procedure Dispo: Admit, med/tele VTE Prophylaxis: Continue home enoxaparin injections Admission and Anticipated Discharge Date Admission Date: July 28, 2024 Supervising Physician Co-Signing Physician Notes I personally examined the patient and verified all gray points of history and exam, discussed case, and agree with decision making with Dr Ramires pt seen in f/u from early AM admit. both he and express frustration that he's back in the hospital. asks if we called his surgeon at [place] - i noted that dr pearson (and i was in the room with at least one of the calls) was calling his surgeon in [place] multiple times over several days and unable to have the nurse actually let him talk with the doctor. also asked if i got her message from a call yesterday - i have absolutely no record of such message. she did note that surgeon from [place] called her and noted he would want DVT situation stable and/or IVC filter, and then since pt is declining overall he would be willing to proceed w surgery. vitals noted nad heent nc at mmm breathing unlabored no accessory muscles good effort skin no rashes no pallor or icterus neuro no focal deficits weakness - relates to his recent run of sepsis->admission->deconditioning over and over. he gets stronger but until he gets off the cycle of getting sicker again this will undoubtedly keep happening. d/w pt and that i agree with and echo their frustration. it was good that the surgeon at least talked to mrs Rosado since dr pearson was unable to get through the office nurse - it sounds like once mrs Rosado talked with him he may have a better understanding that mr Rosado's situation while not a "surgical urgency" per se, is a surgical urgency in that his surgical issue and chronic infection is the prime tank driver of his deconditioning spiral and that he will continue to devolve until he gets out of this cycle. given surgeon's conversation with mrs Rosado, it sounds as though a hospital to hospital transfer may now have a chance of being facilitated (as opposed to last week when our team's repeated phone calls were met with being told that the patient would be called to have his surgery rescheduled). as it relates to the DVT, it is popliteal, and he has now been on full dosing antico agulation, so i d/w pt and that the risk for PE in this context would be quite low (discussed that mrs Rosado's situation with her father and a PE sounded unfortunate but also quite different from what we're seeing in the current situation with her ). Dr Melvin suggested IVC filter preop - not unreasonable - and we can either help facilitate that here or have them proceed at [place]. discussed with pt and re: trying to work the transfer process this vs tuesday - we all agreed that waiting until it would be clear that Dr Melvin could be in on the transfer process, now that he seems to see the "whole person urgency" of the situation even if there isn't narrow-focus "surgical urgency", we will have a greater chance of him being accepted. ~30-45mins face to face Subjective Patient is seen at bedside this AM. Goals of care discussion is discussed today with patient and who prefer for surgical intervention of R. groin wound at [facility]. Patient has hx of DVT from last admission requiring enoxaparin SQ injections for anti-coagulation causing surgical intervention to be more difficult. reports that she spoke with the surgeon, Dr. Li today who discussed the need for clot stabilization or IVC filter placement prior to surgical intervention. Patient and prefer this plan and would like to proceed with a transfer on Tuesday for probable surgery. Patient remains afebrile and hemodynamically stable today. Physical Exam Physical Exam: General: patient resting comfortably, NAD, non-toxic in appearance, answers questions appropriately. Skin: warm, dry, intact HEENT: NC/AT, anicteric sclera, conjunctiva without injection, moist mucus membranes. Heart: +S1/S2, regular, no m/r/g Lungs: equal air entry bilaterally, no rales/rhonchi/wheezes Abd: +BS, soft, NT/ND Ext: warm, no clubbing/cyanosis or edema Neuro: nonfocal, speech intact, no facial droop, moving all extremities. Results & Data Results & Data Vital Signs (Past 12 Hours) Vital Signs Temp Pulse Pulse Pulse Resp BP Pulse Ox 07/28/24 11:28 36.4 C L 69 18 122/69 97 07/28/24 09:55 07/28/24 08:00 36.7 C 71 18 130/70 98 07/28/24 07:26 67 07/28/24 03:48 62 07/28/24 03:47 07/28/24 03:00 36.6 C 69 14 135/64 98 07/28/24 02:40 07/28/24 02:40 36.7 C 71 12 145/73 H 98 07/28/24 02:00 64 16 138/78 100 07/28/24 01:54 70 Pulse Ox O2 Del Method O2 Del Method O2 Flow Rate O2 Flow Rate 07/28/24 11:28 Nasal Cannula 3 07/28/24 09:55 Nasal Cannula 3 07/28/24 08:00 Nasal Cannula 3 07/28/24 07:26 07/28/24 03:48 07/28/24 03:47 98 Nasal Cannula 3 07/28/24 03:00 Nasal Cannula 3 07/28/24 02:40 Nasal Cannula 3 07/28/24 02:40 Nasal Cannula 3 07/28/24 02:00 Nasal Cannula 3 07/28/24 01:54 Resident Activity Tracking Resident Involvement: Resident Care Provided Care Provided: Adult Hospital Medicine
[2024-07-29 10:35] LABS: Basophils # (auto) 0.02 K/uL (0.00-0.20); Basophils % (auto) 0.5 %; Eosinophils # (auto) 0.15 K/uL (0.00-0.50); Eosinophils % (auto) 3.4 %; Hematocrit (blood only) 37.2 % (42.0-52.0); Hemoglobin 11.7 g/dl (14.0-18.0); Immature Granulocytes # (auto) 0.04 K/uL (0.01-0.20); Immature Granulocytes % (auto) 0.9 %; Lymphocytes # (auto) 0.65 K/uL (1.20-3.40); Lymphocytes % (auto) 14.7 %; Mean Corpuscular Hgb Conc 31.5 g/dL (32.0-36.0); Mean Corpuscular Volume 85.7 fL (80.0-100.0); Mean Platelet Volume 9.5 fL (9.4-12.4); Monocytes % (auto) 9.1 %; Neutrophils # (auto) 3.15 K/uL (1.40-6.50); Neutrophils % (auto) 71.4 %; Platelet Count 275 K/uL (130-400); RDW Coefficient of Variation 16.4 % (11.5-14.5); RDW Standard Deviation 50.5 fL (36.4-46.3); Red Blood Count 4.34 M/uL (4.70-6.10); White Blood Count 4.41 K/ul (4.8-10.8)
[2024-07-29 10:45] LABS: BUN Creatinine Ratio 15.4 (10-20); Creatinine Clr Calc Pharmacy 114.7 ml/min; Potassium 3.9 mmol/L (3.5-5.1)
--- NOTE | 2024-07-29 11:12 | Hospitalist Progress Note ---
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 ED evaluation reveals no leukocytosis, H&H 11.6/35.9; PT/INR 12.7/1.3, APTT 32; CMP sodium 134, glucose 116, CK21, albumin 3.1; CXR pending official read; EKG sinus rhythm with first- degree AV block, LAD, RBBB at 87 bpm. #Hypoxia/Effusion/PNA/Right groin abscess Noted to have been hypoxic during last hospital course, no O2 at baseline. His BioFire was negative at that time, no new infectious symptoms from previous. Did have recent DVT, treated with therapeutic Lovenox. - CBC without leukocytosis; Did have fever of 102 day of arrival, and nonproductive cough since July 07 - CXR LLL consolidation - CTA chest without evidence of PE, shows multiple linear atelectatic bands in bilateral basal segment and lingula, cardiomegaly, no evidence of pneumonia - No SOB currently, wean off O2; goal O2 >90% - Coverage with Zosyn IV for likely poly-microbial related groin abscess - Patient will require transfer for surgical intervention of groin abscess at [facility] and potential IVC filter placement vs clot stabilization prior to surgery #Ambulatory dysfunction/weakness/Hx of R. popliteal DVT Patient ambulatory dysfunction, with recent hospital discharge 07/26/2024 for acute DVT. 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 Treated with antibiotics during last day. PT/OT was consulted at that time. - CBC without leukocytosis, H&H 11.6/35.9; CMP rather unremarkable sodium 134, glucose 116 - Fall precautions - PT/OT ordered - appreciate assistance - Continue Lovenox 1mg/kg q12H SQ BID, medication can be held for a dose prior to procedure and then should be continued for approximately 3 months post- procedure Dispo: Admit, med/tele VTE Prophylaxis: Continue home enoxaparin injections Admission and Anticipated Discharge Date Admission Date: July 28, 2024 Physical Exam Physical Exam: General: patient resting comfortably, NAD, non-toxic in appearance, answers questions appropriately. Skin: warm, dry, intact HEENT: NC/AT, anicteric sclera, conjunctiva without injection, moist mucus membranes. Heart: +S1/S2, regular, no m/r/g Lungs: equal air entry bilaterally, no rales/rhonchi/wheezes Abd: +BS, soft, NT/ND Ext: warm, no clubbing/cyanosis or edema Neuro: nonfocal, speech intact, no facial droop, moving all extremities. Results & Data Results & Data Vital Signs (Past 12 Hours) Vital Signs Temp Pulse Pulse Resp BP Pulse Ox Pulse Ox 07/29/24 09:07 07/29/24 08:12 36.7 C 78 20 157/76 H 94 07/29/24 07:20 74 07/29/24 03:00 95 07/29/24 02:22 36.7 C 75 16 133/72 95 O2 Del Method O2 Del Method O2 Flow Rate O2 Flow Rate 07/29/24 09:07 Room Air 07/29/24 08:12 Nasal Cannula 1 07/29/24 07:20 07/29/24 03:00 Nasal Cannula 1 07/29/24 02:22 Nasal Cannula 1
--- NOTE | 2024-07-29 11:17 | Hospitalist Progress Note ---
Date of Service July 29, 2024 Assessment & Plan (1) Hypoxia: (2) Pleural effusion: (3) Weakness: Plan #groin abscess, infected mesh -having more frequent septic deteriorations - which then are able to be quickly stabilized with antibiotics - however, this then leads to surgical management to correct the underlying problem being viewed as more routine - but his individual track record has now been repeatedly proving that he develops a setback/deterioration faster than the "outpatient world" can meet his needs. these decompensations, in turn, lead to worsening deconditioning (and now most recently a DVT) - while the infection itself is able to be suppressed with abx, his clinical course is on a downward trajectory and will really need the cardinal problem remedied (ie infection operated on for definitive source control) before he reaches a point at which the deconditioning is beyond repair. d/w surgery here (and has been seen by multiple surgeons locally in this journey) and it is clear that the problem is beyond the scope of this facility -because of this, we will hopefully be able to affect a hospital to hospital transfer for definitive care #DVT -small, popliteal. on lovenox to allow for easy hold for surgery - notes that his surgeon in [place] would want IVC filter before stopping anticoagulation for surgery. this is reasonable. d/w pt and - at this point will determine asking vascular here vs having placed at [place] based on acceptance and then timing of transfer (ie if he's accepted and they have a bed tomorrow, would hold on vascular consult and have IVC filter placed at [facility]; if he's accepted but no bed for a day or two, then would see if local vascular can place this to keep his care moving forward) #Hypoxia -appears to have been due to atelectasis -mobility/PT/OT, deep breathing #Ambulatory dysfunction/weakness -see above; his overall trajectory is downward largely because of deconditioning, which has been repeatedly precipitated but setbacks with the infection, thereby necessitating an urgency for source control beyond simply the infection itself -PT/OT eval and treta -may need one more rehab stay vs hopefully just ongoing outpt PT after discharge Dispo: hopefully will be able to facilitate transfer to [place] for definitive care after team is able to connect with his surgeon tomorrow Admission and Anticipated Discharge Date Admission Date: July 28, 2024 Subjective did well w PT no new problems discussed next steps with pt and extensively, answered all questions to the best of my ability Review of Systems Review of Systems: All systems reviewed & are unremarkable except as noted in HPI & below Physical Exam Physical Exam: gen aaox3 pleasant fatigued nad heent nc at mmmm breathing unlabored no accessory muscles good effort Results & Data Results & Data Vital Signs (Past 12 Hours) Vital Signs Temp Pulse Pulse Resp BP Pulse Ox Pulse Ox 07/29/24 09:07 07/29/24 08:12 98.1 F 78 20 157/76 H 94 07/29/24 07:20 74 07/29/24 03:00 95 07/29/24 02:22 98.1 F 75 16 133/72 95 O2 Del Method O2 Del Method O2 Flow Rate O2 Flow Rate 07/29/24 09:07 Room Air 07/29/24 08:12 Nasal Cannula 1 07/29/24 07:20 07/29/24 03:00 Nasal Cannula 1 07/29/24 02:22 Nasal Cannula 1 PG Care Time/CCT Total # of Minutes Spent Total Time Spent with Patient: Total time spent is greater than 50% in coordination of care (as documented) at patient's floor/unit and/or counseling patient: Coding Level of Care Code 89144 SUB INP/OBS CARE 3/50MIN Diagnoses Hypoxia R09.02 Pleural effusion J90 Weakness R53.1
[2024-07-30 07:00] LABS: Basophils # (auto) 0.02 K/uL (0.00-0.20); Basophils % (auto) 0.4 %; Eosinophils # (auto) 0.21 K/uL (0.00-0.50); Eosinophils % (auto) 4.2 %; Hematocrit (blood only) 36.4 % (42.0-52.0); Hemoglobin 11.6 g/dl (14.0-18.0); Immature Granulocytes # (auto) 0.05 K/uL (0.01-0.20); Lymphocytes # (auto) 0.62 K/uL (1.20-3.40); Lymphocytes % (auto) 12.3 %; Mean Corpuscular Hemoglobin 27.3 pg (25.0-34.0); Mean Corpuscular Hgb Conc 31.9 g/dL (32.0-36.0); Mean Corpuscular Volume 85.6 fL (80.0-100.0); Mean Platelet Volume 9.2 fL (9.4-12.4); Monocytes # (auto) 0.36 K/uL (0.11-0.59); Monocytes % (auto) 7.1 %; Neutrophils # (auto) 3.78 K/uL (1.40-6.50); Platelet Count 264 K/uL (130-400); RDW Coefficient of Variation 16.6 % (11.5-14.5); RDW Standard Deviation 51.7 fL (36.4-46.3); Red Blood Count 4.25 M/uL (4.70-6.10); White Blood Count 5.04 K/ul (4.8-10.8)
[2024-07-30 07:16] LABS: BUN Creatinine Ratio 15.4 (10-20); Creatinine Clr Calc Pharmacy 113.6 ml/min; Potassium 3.6 mmol/L (3.5-5.1)
--- NOTE | 2024-07-30 15:16 | Electrocardiogram Report ---
Test Reason : Blood Pressure : */* mmHG Vent. Rate : 87 BPM Atrial Rate : 87 BPM P-R Int : 260 ms QRS Dur : 132 ms QT Int : 440 ms P-R-T Axes : 24 -33 4 degrees QTcB Int : 529 ms Sinus rhythm with 1st degree A-V block Left axis deviation Right bundle branch block Minimal voltage criteria for LVH, may be normal variant ( R in aVL ) Abnormal ECG When compared with ECG of 23-Jul-2024 15:23, Minimal criteria for Anterior infarct are no longer Present Confirmed by Justin Zamarripa ([id number]) on 07/30/2024 3:15:57 PM Referred By: REFERRED SELF Confirmed By: Justin Zamarripa
--- NOTE | 2024-07-30 18:30 | Hospitalist Progress Note ---
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 ED evaluation reveals no leukocytosis, H&H 11.6/35.9; PT/INR 12.7/1.3, APTT 32; CMP sodium 134, glucose 116, CK21, albumin 3.1; CXR pending official read; EKG sinus rhythm with first- degree AV block, LAD, RBBB at 87 bpm. #Hypoxia/Effusion/PNA/Right groin abscess Noted to have been hypoxic during last hospital course, no O2 at baseline. His BioFire was negative at that time, no new infectious symptoms from previous. Did have recent DVT, treated with therapeutic Lovenox. - CBC without leukocytosis; Did have fever of 102 day of arrival, and nonproductive cough since July 07 - CXR LLL consolidation - CTA chest without evidence of PE, shows multiple linear atelectatic bands in bilateral basal segment and lingula, cardiomegaly, no evidence of pneumonia - No SOB currently, wean off O2; goal O2 >90% - Coverage with Zosyn IV for likely poly-microbial related groin abscess - Patient will require transfer for surgical intervention of groin abscess at [facility] and potential IVC filter placement vs clot stabilization prior to surgery #Ambulatory dysfunction/weakness/Hx of R. popliteal DVT Patient ambulatory dysfunction, with recent hospital discharge 07/26/2024 for acute DVT. 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 Treated with antibiotics during last day. PT/OT was consulted at that time. - CBC without leukocytosis, H&H 11.6/35.9; CMP rather unremarkable sodium 134, glucose 116 - Fall precautions - PT/OT ordered - appreciate assistance - Continue Lovenox 1mg/kg q12H SQ BID, medication can be held for a dose prior to procedure and then should be continued for approximately 3 months post- procedure - Inpatient rehabilitation at site like [facility] recommended prior to home Dispo: Admit, med/tele VTE Prophylaxis: Continue home enoxaparin injections Admission and Anticipated Discharge Date Admission Date: July 30, 2024 Supervising Physician Co-Signing Physician Notes I personally examined the patient and verified gray points of history and exam, discussed case, and agree with decision making and plan documented by Dr. Ramires. Unfortunatly, patient not accepted for transfer to [place] for surgical intervention. Continue lovenox for DVT and antibiotics for groin abscess. Will continue plan to get patient to rehab. Subjective Discussed attempted transfer to patient who was very discouraged when declined for transfer to [facility]. Patient would still like to proceed with his surgical exploration of his infected mesh site and R. groin abscess in the outpatient setting, but was hoping to get this procedure done sooner if possible. Patient is open to more inpatient physical therapy at [facility] stay before trying to get his surgery scheduled again. Patient is frustrated as when he is taken by ambulance he is take directly to [facility] ED where the surgery team has already commented on the complexity of his procedure and recommended that this be taken care of at a tertiary care center such as [facility]. Patient is medically stable and afebrile but his infected mesh and abscess are interfering with his quality of life and has already had 3 admissions this month of including sepsis, DVT, and the most recent fall and patient expresses anger and hopelessness with situation. Patient is reassured he will need to stay strong and work hard to recover in inpatient PT even without surgical intervention on his abscess and patient seems to appreciate this plan. Patient remains afebrile and hemodynamically stable. Physical Exam Physical Exam: General: patient resting comfortably, NAD, non-toxic in appearance, answers questions appropriately. Skin: warm, dry, intact HEENT: NC/AT, anicteric sclera, conjunctiva without injection, moist mucus membranes. Heart: +S1/S2, regular, no m/r/g Lungs: equal air entry bilaterally, no rales/rhonchi/wheezes Abd: +BS, soft, NT/ND, chronic R. sided inguinal abscess with cutaneous fistula present Ext: warm, no clubbing/cyanosis or edema Neuro: nonfocal, speech intact, no facial droop, moving all extremities. Results & Data Results & Data Vital Signs (Past 12 Hours) Vital Signs Temp Pulse Pulse Resp BP Pulse Ox O2 Del Method 07/30/24 16:07 36.5 C 87 18 117/73 93 Room Air 07/30/24 13:39 79 07/30/24 11:39 36.4 C L 79 18 116/64 93 Room Air 07/30/24 10:17 Room Air 07/30/24 07:55 36.8 C 74 18 147/79 H 93 Room Air 07/30/24 07:03 73 Resident Activity Tracking Resident Involvement: Resident Care Provided Care Provided: Adult Hospital Medicine
[2024-07-30] MEDS: MELATONIN 3 MG TAB PO PRN (20:37)
--- NOTE | 2024-07-31 08:03 | Hospitalist Progress Note ---
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 ED evaluation reveals no leukocytosis, H&H 11.6/35.9; PT/INR 12.7/1.3, APTT 32; CMP sodium 134, glucose 116, CK21, albumin 3.1; CXR pending official read; EKG sinus rhythm with first- degree AV block, LAD, RBBB at 87 bpm. #Hypoxia/Effusion/PNA/Right groin abscess Noted to have been hypoxic during last hospital course, no O2 at baseline. His BioFire was negative at that time, no new infectious symptoms from previous. Did have recent DVT, treated with therapeutic Lovenox. - CBC without leukocytosis; Did have fever of 102 day of arrival, and nonproductive cough since July 07 - CXR LLL consolidation - CTA chest without evidence of PE, shows multiple linear atelectatic bands in bilateral basal segment and lingula, cardiomegaly, no evidence of pneumonia - No SOB currently, wean off O2; goal O2 >90% - Coverage with Zosyn IV for likely poly-microbial related groin abscess - Patient will require transfer for surgical intervention of groin abscess at [facility] and potential IVC filter placement vs clot stabilization prior to surgery #Ambulatory dysfunction/weakness/Hx of R. popliteal DVT Patient ambulatory dysfunction, with recent hospital discharge 07/26/2024 for acute DVT. 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 Treated with antibiotics during last day. PT/OT was consulted at that time. - CBC without leukocytosis, H&H 11.6/35.9; CMP rather unremarkable sodium 134, glucose 116 - Fall precautions - PT/OT ordered - appreciate assistance - Continue Lovenox 1mg/kg q12H SQ BID, medication can be held for a dose prior to procedure and then should be continued for approximately 3 months post- procedure - Inpatient rehabilitation at site [facility] recommended prior to home Dispo: Admit, med/tele VTE Prophylaxis: Continue home enoxaparin injections Admission and Anticipated Discharge Date Admission Date: July 30, 2024 Physical Exam Physical Exam: General: patient resting comfortably, NAD, non-toxic in appearance, answers questions appropriately. Skin: warm, dry, intact HEENT: NC/AT, anicteric sclera, conjunctiva without injection, moist mucus membranes. Heart: +S1/S2, regular, no m/r/g Lungs: equal air entry bilaterally, no rales/rhonchi/wheezes Abd: +BS, soft, NT/ND, chronic R. sided inguinal abscess with cutaneous fistula present Ext: warm, no clubbing/cyanosis or edema Neuro: nonfocal, speech intact, no facial droop, moving all extremities. Results & Data Results & Data Vital Signs (Past 12 Hours) Vital Signs Temp Pulse Pulse Pulse Resp BP Pulse Ox 07/31/24 07:35 36.7 C 93 H 81 18 120/66 93 07/31/24 02:36 36.8 C 71 17 147/70 H 92 07/30/24 23:17 36.9 C 75 16 149/70 H 94 07/30/24 22:34 07/30/24 21:55 74 O2 Del Method 07/31/24 07:35 Room Air 07/31/24 02:36 Room Air 07/30/24 23:17 Room Air 07/30/24 22:34 Room Air 07/30/24 21:55
[2024-07-31 11:20] VITALS: BP 113/64; RESP 20; TEMP 97.7; O2SAT 95
--- NOTE | 2024-07-31 11:36 | Discharge Summary ---
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 Patient presenting today for ongoing symptoms of weakness, stating that the day of arrival he was trying to get to the bed when he started to have bilateral leg weakness, causing him to lose his balance. states that she tried to push him forward up to the bed so he would not fall, but instead he fell backwards and laid on his belly for approximately 20 minutes. He was unable to get himself up without assistance. He did not have any symptoms prior to to include chest pain, SOB, dizziness, lightheadedness, or feeling that he may pass out. He has been continuing to feel weak since his most recent hospital admission. Continues to have cough, nonproductive which has been ongoing since July 07. No abdominal pain, however he is still dressing the area that was recently repaired. His does state that he had a fever of 102 F day of arrival, which she provided him with Tylenol for and states that it had decree since then. Since his prostatectomy, he does have low-grade fevers at times, but no LUTS currently. At present, patient states that he is fatigued and tired of feeling weak. States that he is continuing to progress in his weakness since his initial admission to the hospital. He is concerned of when he will be able to have his abdominal surgery given his recent clot. Will schedule for 07/26/2024, currently on scheduled. Currently denying chest pain, SOB, palpitations, N/V/D/C, no/tingling, LUTS, chills, URI symptoms, or recent sick contacts. He does not feel as though he may pass out. ED evaluation reveals no leukocytosis, H&H 11.6/35.9; PT/INR 12.7/1.3, APTT 32; CMP sodium 134, glucose 116, CK21, albumin 3.1; CXR pending official read; EKG sinus rhythm with first-degree AV block, LAD, RBBB at [address] Singh's attestation for adjustments/additions to treatment plan. Admission Exam Per Admitting Provider General: No acute distress, appears fatigued Skin: Warm and dry Head: Normocephalic, atraumatic Eyes: PERRL, conjunctivae clear, sclera non-icteric ENT: External ear and ear canal without swelling; nose atraumatic; good dentition, tongue normal appearance, pharynx normal Neck: Supple, no LAD Cardio: RRR, no M/G/R, S1 and S2 normal Resp: Wearing O2 via NC; No respiratory distress, Lungs CTA in all lobes bilaterally, no wheezes, rales, or rhonchi; O2 via NC Abdomen: Soft, symmetric, nontender; No masses or hepatosplenomegaly; Bowel sounds normoactive; RLQ with dressing in place over wound MSK: No deformities; pulses palpable and equal; trace pitting edema BLE. Neuro: Awake, alert; Sensation intact bilaterally; CN grossly intact Psych: Appropriate mood and affect; good judgement and insight. Principal Diagnosis R. groin abscess w/ cutaneous fistula/infected mesh/physical deconditioning Discharge Exam General: patient resting comfortably, NAD, non-toxic in appearance, answers questions appropriately. Skin: warm, dry, intact HEENT: NC/AT, anicteric sclera, conjunctiva without injection, moist mucus membranes. Heart: +S1/S2, regular, no m/r/g Lungs: equal air entry bilaterally, no rales/rhonchi/wheezes Abd: +BS, soft, NT/ND Ext: warm, no clubbing/cyanosis or edema Neuro: nonfocal, speech intact, no facial droop, moving all extremities. 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 Consultations 07/28/24 00:39 ED Decision to Admit Stat Ordered Studies 07/28/24 00:54 CT angio chest PE protocol Stat 07/28/24 07:02 CT lumbar spine wo con Routine Hospital Course (1) Hypoxia: (2) Pleural effusion: (3) Weakness: (4) Infected prosthetic mesh of abdominal wall: (5) DVT of leg (deep venous thrombosis): (6) Generalized weakness: (7) Fever: (8) History of hernia repair: Plan Patient is a 78 y/o male with past medical history of prostate CA s/p prostatectomy postradiation 2012, medical hernia repair 2007, inguinal hernia repair 2016, 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 Had admission 07/07-07/11 with sepsis from his R groin abscess and cutaneous fistula, was on vancomycin and Zosyn, transitioned to Flagyl and Keflex for discharge. Patient was doing well until 6/16 AM, with significant weakness and rigors, came back to [facility] ER for concern of re-sepsis. VSS, no leukocytosis, Procal greatly improved, AP CT shows improved abscess, no other sources of infection found. Attempted transfer to [facility] for surgical exploration of infected mesh, R. groin abscess w/ cutaneous fistula as it is likely contributing to patient's sepsis admission 07/07, DVT admission 07/23-07/26, and recent fall admission 07/28, patient does endorse feeling that he is getting continuously weaker daily. Dr. Li is not willing to perform the procedure while pt is currently receiving antibiotics and being treated for an acute DVT within the first days of treatment. They did not provide a timeline for when this surgery could be rescheduled to. Patient's will try to reaching out to Dr. Li's office to see if surgery can be rescheduled with stabilization of his DVT or placement of IVC filter. As he has remained with stable vital signs and has been having good ambulation progress, we feel most comfortable discharging home today on the condition that he will continue taking his antibiotics (flagyl and cefdinir) until he is able to have his procedure. Plan for pt to go to [facility] ER next week in order to expedite his completely necessary surgical procedure as this is what will continue to make him sick and weak until addressed surgically. #Right groin abscess with cutaneous fistula / Infected Mesh / weakness - AP CT showed improved abscess - previously 4.4 3.7 cm now 4.2 x 2.8 cm. Nonseptic at time of admission - no leukocytosis, VSS, procal improved (5.26 -> 0.54), lactate 1.2. Requires surgical treatment in order to prevent cycle of weakness and hospital re-admission Reaching out to two [facility] surgeons and a [facility] surgeon who may be willing to perform the procedure here, as pt's [facility] surgeon is not willing to operate at this time due to being on abx and within a few days of being treated for acute DVT. No other source of infection found at time of admission - CXR and UA negative, Biofire negative. - wound and blood cultures obtained prior to IV antibiotics - continue Zosyn; defer further Flagyl coverage as anaerobic coverage with Zosyn recent admission - course of Zosyn and Vanco transitioned to Keflex and Flagyl PO, currently completing course outpatient Resumed on IV Zosyn throughout hospital stay Home on flagyl and cefdinir as directed until procedure previous wound cultures grew gram-negative rods Prevotella bivia PT/OT - Tylenol prn for fevers and pain #Acute DVT, Right popliteal US returned showing acute right DVT Therapeutic Lovenox dosing at 1mg/kg q12h subQ, continue taking once every 12hrs after discharge For impending surgical procedure at [facility], will hold Lovenox for a dose which should leave him sufficiently coagulated for the procedure, then to resume same therapeutic Lovenox dose post-procedure for a total of 3mos #Hypoxia - on 2L NC at time of admission. Denies O2 use at home. Did require O2 intermittently during recent admission. CXR and biofire negative. - oxygen prn for O2 <94%, wean as tolerated Has been tolerating room air #LE edema - patient reports increased BL LE edema,+2 on exam - continue compression stockings - as above tx for acute R popliteal DVT #HTN - no medical management, monitor VTE ppx: Lovenox, therapeutic dosing for acute R popliteal DVT Dispo: med/surg with continuous pulse ox Total Time Total Time Spent Total Time Spent (In Minutes): See attending attestation Discharge Plan Discharge Items Patient Disposition: Transfer [facility] Reason For Visit: HYPOXIA Discharge Diagnosis: Physical deconditioning, complicated groin abscess w/ cutaneous fistula Condition on Discharge: Fair Activity: Per Instructions section Non-emergency contact: Primary Care Provider Call non-emergency contact if: your symptoms worsen and your pain is not controlled Follow-up/Referrals: Sue Kat DO [Primary Care Provider] - Diet: Regular Addtl Attending Provider Instructions: You were admitted to the hospital for a recent fall without significant injury or loss of consciousness. You were treated with IV antibiotics and oral antibiotics. Early on in your admission there was a concern for pneumonia with a left lower lobe consolidation found on chest x-ray. This was not seen with the advanced CT imaging of your chest that was completed one day later. It is likely that your DVT, recent fall, and sepsis admission have some contributions from your persistent R. groin abscess and we did attempt to transfer you to [facility] for surgery but this transfer was unsuccessful and we discussed this at length. After this hospital stay continue on your Cefdnir twice daily and Flagyl (metronidazole) 3 times daily prescriptions for antibiotic coverage. In addition to this please continue with your twice daily Lovenox (enoxaparin) subcutaneous injections for anticoagulation to help stabilize and eventually dissolve your R. DVT clot that you were treated for during your last admission 07/23-07/26. You are ready for transfer to [facility] and have expressed that you will push yourself and complete a full course of inpatient physical therapy to help get you ready for eventual outpatient surgery of your R. groin abscess/infected mesh site. A discharge summary will be sent to your primary care physician to ensure continuity of care. Please bring this discharge summary with you to your next office appointment so that your provider can review it at that time. Follow-up appointments: Make a follow-up appointment with your PCP within the next week. It is very important that you follow up with them shortly after discharge from the hospital. You may call the [facility] office at to follow up for your hospital visit after your inpatient rehab at [facility]. You may request me, Dr. Jamal Ramires and schedule an appointment with me. Keep all your follow-up appointments as already scheduled. If you cannot make an appointment, notify your provider. Medications: Your medication list has been reviewed and reconciled upon discharge to ensure accuracy and continuity of care. An updated list of all your medications is included with your hospital discharge paperwork. Please review this list closely, and make note of any changes. Continue Cefdinir 300mg twice daily or approximately 12 hours apart for chronic antibiotic therapy for your groin wound. You should still have doses of this medication from your last hospital stay 07/23-07/26. Continue Flagyl (metronidazole) 500mg 3 times a day or approximately 8 hours apart. You should also have a course of this medication from your last hospital stay 07/23-07/26. Continue Lovenox subcutaneous injections 100mg twice or approximately 12 hours apart. This medication should be taken twice daily for approximately 3 months for complete clot stabilization/resolution. If you need refills of these medications please call the [facility] office at and ask to leave a message for Dr. Jamal Ramires Take your medications as instructed; do not skip a dose of your medicines. Make sure all of your doctors know every medicine you are taking (including [id number] medicines, vitamins, and supplements). Call your primary care provider before taking any new medicines (including evht-zya-pjindwa medicines, vitamins, and supplements), because some of these may interact with your current medications, or may make your symptoms worse. Tell your primary care provider if you cannot afford your medications. CONTACT YOUR PRIMARY CARE PROVIDER if you experience any of the following: Difficulty following your treatment plan, or difficulty taking medications CALL 911 OR GO TO THE EMERGENCY DEPARTMENT if you experience any of the following: Sudden, severe abdominal pain or nausea/vomiting Severe chest pain, or chest pain that radiates (moves) to your jaw or arm Sudden, severe shortness of breath or difficulty breathing Thank you for allowing us to participate in your care. Pending Studies at Discharge: No Stand-Alone Forms: My [facility] Skilled Items Patient informed of condition?: Yes DNR: Yes Discharge Level of Care: Skilled Communicable Disease: No Discharge Prognosis: Stable Lines: None Urinary Catheter: No Medications and DC Order Prescriptions: Continued acetaminophen [Tylenol Arthritis Pain] 650 mg tablet extended release 650 mg PO TID garlic 1,000 mg Capsule 1,000 mg PO 3XWK Rx Instructions: mon, wed, fri calcium carbonate [Calcium 600] 600 mg calcium (1,500 mg) Tablet 600 mg PO 3XWK Rx Instructions: MON, WED, & FRI. magnesium 250 mg Tablet 250 mg PO DAILY cholecalciferol (vitamin D3) [Vitamin D3] 25 mcg (1,000 unit) Capsule 25 mcg PO DAILY Curcumin 95 % Powder 1 ea miscellaneous BID Rx Instructions: STRENGTH--750 MG TABLET DAILY Men's 50 Plus Multivitamin 400-20-370 mcg Tablet 1 tab PO DAILY enoxaparin 100 mg/mL Syringe 100 mg subcut Q12H 30 Days Qty: 60 2RF cefdinir 300 mg capsule 300 mg PO Q12H 20 Days Qty: 40 2RF Rx Instructions: you have already received antibiotics this morning, so you may just take your evening dose of cefdinir this evening. Then tomorrow 07/27 and thereafter, until your surgical procedure, please take in AM and PM roughly 12hrs apart. metronidazole 500 mg Tablet 500 mg PO Q8H 20 Days Qty: 60 2RF Rx Instructions: Continue taking as prescribed until you undergo your surgical procedure. Glucosamine Chondroitin 550-30-1 mg Capsule 1 cap PO BID Discharge Orders: Discharge Order (Routine); Ordered 07/31/24 Ordered By: Jamal Ramires Admission Data Admit Date/Time: 07/30/24 15:34 Attending Provider: Edelmira Duque Admit Provider: Ralf Singh Primary Care Provider: Sue Kat Other Providers: Ralf Singh; [facility] Other Interventions: Discharge Summary Assessment (RN) Last Done: 07/31/24 14:10 Supervising Physician Co-Signing Physician Notes I personally examined the patient and verified gray points of history and exam, discussed case, and agree with decision making and plan documented by Dr. Ramires. Patient is a 78-year-old male with a history pertinent for prostate cancer, DVT, HTN, and recurrent right groin abscess/mesh infection. Reportedly, patient had a complicated prostatectomy (2012) with subsequent. Right inguinal hernia repaired in 2016 with mesh. Patient was admitted 07/07-07/11/24 for sepsis from right groin abscess and cutaneous fistula, he was discharged to [facility] for rehabilitation, reports he was discharged home and then became increasingly weak requiring readmission. CT scan 07/23/2024 showed interval decrease of right obturator space and right inguinal fluid collection, now 4.2 x 2.8 cm. Acute right DVT diagnosed on ultrasound and patient initiated on therapeutic Lovenox. Patient was scheduled for right groin exploration 07/25/24 at [facility] but unfortunately he was unable to be there due to admission. Attempted to transfer patient but he was not accepted. Patient discharged to [facility] today for rehabilitation. Discussed plans with he and his , they maintain close contact with surgeon at [facility] and will seek evaluation right after rehabilitation. Patient discharged on Keflex and Flagyl p.o. Total attending time 44 minutes. Resident Activity Tracking Resident Involvement: Resident Care Provided Care Provided: Adult [facility]
[2024-07-31 14:13] VITALS: PULSE 93
== END 2024-07-31 15:13 | DRG 920 ==
LOC: 2W 21:47 → ED 21:47 → SUATTDRO 07-28 01:29 → 2W 07-28 02:11